=== PATIENT | male | born 1960 | race Caucasian/White ===

== ENCOUNTER → 2016-09-26 | Outpatient (CLI) | payer OTHER ==
--- NOTE | 2016-09-26 10:44 | REP ---
MRI CERVICAL SPINE WITHOUT CONTRAST: 08/29/2016 CLINICAL HISTORY: Cervical myelopathy. Bilateral leg cramps and pain. No known injury. Technique: Sagittal T1, T2 and STIR images with axial T1 and T2 sequences. FINDINGS: No comparison study. Normal lordosis and sagittal projections are maintained. The vertebral body heights and marrow signal are normal throughout. The cervical cord shows no intrinsic signal abnormality, syrinx, atrophy or mass. The craniocervical junction shows ample subarachnoid space. There is no definite cerebellar tonsillar ectopia. There is disc space narrowing at see 05/06 and C6-7 with loss of disc water signal at all levels in the cervical spine. C2-3, there is no significant disc bulge herniation and no spinal or foraminal stenosis. C3-4, there is broad-based disc bulge abutting the nerve roots in the central canal but not the cord. Cross-sectional area of that canal was adequate. The foramina show encroachment due to combined factors. At C4-5, minimal disc bulge into the foramina but no central canal stenosis. The foramina show encroachment due to combined factors bilaterally. At C5-6, there is disc protrusion abutting the ventral cord surface and flattening yet this causes mild cord compression and some minor degree of spinal stenosis. The AP canal diameter id 7.8 mm. Foramina suggest some encroachment bilaterally due to uncinate and facet spurs. At C6-7 and C7-T1, there is no significant central canal stenosis or foraminal encroachment. IMPRESSION: 1. Multilevel degenerative disc disease greatest at C5-6 with central disc protrusion at this level and disc bulge which abuts the nerve roots and flattens the ventral cord with moderate central canal stenosis and mild cord compression. Foramina encroached bilaterally due to combined factors. 2. No significant central canal stenosis but some foraminal encroachment at both C3-4 and C4-5. The other levels are grossly intact. Signed by Zion Blank MD 09/26/2016 10:57 A
== END ==
LOC: M RAD 09:09
PROVIDERS: ATTEND Neurological Surgery
DX: M48.02 Spinal stenosis, cervical region (principal); M50.022 Cervical disc disorder at C5-C6 level with myelopathy

== ENCOUNTER → 2016-11-13 | Outpatient (CLI) | payer OTHER ==
[2016-11-13 11:21] LABS: MEAN CORPUSCULAR HEMOGLOBIN 32.9 pg (27.0-33.0); MEAN CORPUSCULAR HGB CONC 33.6 g/dl (32.0-36.5); RED CELL DISTRIBUTION WIDTH 12.9 % (11.5-14.5); WHITE BLOOD COUNT 5.5 K/mm3 (4.0-10.0)
[2016-11-13 12:13] LABS: ALBUMIN/GLOBULIN RATIO 1.03 (1.00-1.93); ALKALINE PHOSPHATASE 118 U/L (45-117); ALT/SGPT 154 U/L (12-78); ANION GAP 6 MEQ/L (8-16); AST/SGOT 104 U/L (15-37); BILIRUBIN,TOTAL 0.6 MG/DL (0.2-1.0); BLOOD UREA NITROGEN 10 MG/DL (7-18); CALCIUM LEVEL 9.3 MG/DL (8.5-10.1); CARBON DIOXIDE LEVEL 33 MEQ/L (21-32); CHLORIDE LEVEL 101 MEQ/L (98-107); CHOLESTEROL LEVEL 134 MG/DL (<200); CREATININE FOR GFR 0.92 MG/DL (0.70-1.30); GLOMERULAR FILTRATION RATE > 60.0 (>56); GLUCOSE, FASTING 189 MG/DL (70-105); MAGNESIUM LEVEL 2.2 MG/DL (1.8-2.4); POTASSIUM SERUM 4.3 MEQ/L (3.5-5.1); SODIUM LEVEL 140 MEQ/L (136-145); TOTAL PROTEIN 7.9 GM/DL (6.4-8.2); TRIGLYCERIDES LEVEL 199 MG/DL (<150)
== END ==
LOC: M LAB 10:19
PROVIDERS: ATTEND Family Medicine
DX: E11.9 Type 2 diabetes mellitus without complications (principal); E03.9 Hypothyroidism, unspecified; R53.83 Other fatigue; N40.0 Benign prostatic hyperplasia without lower urinary tract symptoms

== ENCOUNTER → 2017-02-23 | Outpatient (CLI) | payer OTHER ==
[~2017-02-23] MED LIST: AMOX500T PO; ASPI1TAB PO; ATOR1TAB21 PO; DERM0.014 AU; FARX1TAB3 PO; FURO40TA2 PO; GABA-279 PO; MELO7.5T7 PO; METF10004 PO; MOME50SP; RANI150T PO; ROPI1TAB PO; SILD50TA PO; SING10TA32 PO; TELM1TAB2 PO; TIZA4CAP3 PO; ZYLO300T4 PO
[2017-02-23 10:23] LABS: MEAN CORPUSCULAR HEMOGLOBIN 32.9 pg (27.0-33.0); MEAN CORPUSCULAR VOLUME 96.5 fl (80.0-96.0); RED CELL DISTRIBUTION WIDTH 13.1 % (11.5-14.5); WHITE BLOOD COUNT 4.7 K/mm3 (4.0-10.0)
[2017-02-23 10:46] LABS: ALBUMIN 3.9 GM/DL (3.2-5.2); ALBUMIN/GLOBULIN RATIO 1.05 (1.00-1.93); ALKALINE PHOSPHATASE 113 U/L (45-117); ALT/SGPT 207 U/L (12-78); ANION GAP 9 MEQ/L (8-16); AST/SGOT 175 U/L (15-37); BILIRUBIN,TOTAL 0.9 MG/DL (0.2-1.0); BLOOD UREA NITROGEN 15 MG/DL (7-18); CALCIUM LEVEL 9.1 MG/DL (8.5-10.1); CARBON DIOXIDE LEVEL 28 MEQ/L (21-32); CHLORIDE LEVEL 104 MEQ/L (98-107); CHOLESTEROL LEVEL 141 MG/DL (<200); GLOMERULAR FILTRATION RATE > 60.0 (>56); GLUCOSE, FASTING 172 MG/DL (70-105); POTASSIUM SERUM 3.9 MEQ/L (3.5-5.1); SODIUM LEVEL 141 MEQ/L (136-145); TOTAL PROTEIN 7.6 GM/DL (6.4-8.2); TRIGLYCERIDES LEVEL 180 MG/DL (<150)
== END ==
LOC: M LAB 09:44
PROVIDERS: ATTEND Family Medicine
DX: I10 Essential (primary) hypertension (principal)

== ENCOUNTER 2017-05-04 09:41 | Day surgery (SDC) | payer OTHER ==
[~2017-05-04] VITALS: Ht 165.1 cm; Wt 90.3 kg
[2017-05-04] MEDS ORDERED: NS 1,000 ML IV ONE (12:30)
[2017-05-04] MEDS ORDERED: PROPOFOL 200 MG/20 ML VIAL As Ordered ONE (14:15)
[2017-05-04] MEDS ORDERED: LIDOCAINE 2% INJ 100 MG/5 ML SDV (FOR ANES.) As Ordered ONE (14:15)
--- NOTE | 2017-05-04 14:29 | ROOR ---
Patient Name: Ignacio Live Procedure Date: 05/04/2017 2:06 PM Date of : 1960 Age: 57 Room: [facility] Gender: Male Note Status: Finalized Procedure: Colonoscopy Indications: Colon cancer screening in patient with 1st-degree relative having advanced adenoma of the colon before age 60(sister), Screening in patient at increased risk: Colorectal cancer in father before age 60, Providers: Sameer BUSH MD Referring MD: ZOE COELHO MD Requesting Provider: Medicines: Monitored Anesthesia Care Complications: No immediate complications. Procedure: Pre-Anesthesia Assessment: - The heart rate, respiratory rate, oxygen saturations, blood pressure, adequacy of pulmonary ventilation, and response to care were monitored throughout the procedure. The Colonoscope was introduced through the anus and advanced to the cecum, identified by appendiceal orifice and ileocecal valve. The colonoscopy was performed without difficulty. The patient tolerated the procedure well. The quality of the bowel preparation was adequate. Findings: The perianal and digital rectal examinations were normal. A 4 mm polyp was found in the sigmoid colon. The polyp was sessile. The polyp was removed with a cold snare. Resection and retrieval were complete. Mild diverticulosis and small internal hemorrhoids. The exam was otherwise without abnormality on direct and retroflexion views. (EXAM: Complete, PREP: Fair/Adequate) Impression: - (EXAM: Complete, PREP: Fair/Adequate) - One 4 mm polyp in the sigmoid colon, removed with a cold snare. Resected and retrieved. - Mild diverticulosis and small internal hemorrhoids. - The examination was otherwise normal on direct and retroflexion views. Recommendation: - Repeat colonoscopy in 3 years for surveillance.- (family history, only fair prep, polyp) Sameer Bush MD Sameer BUSH MD 05/04/2017 2:29:03 PM This report has been signed electronically. Number of Addenda: 0 Note Initiated On: 05/04/2017 2:06 PM Estimated Blood Loss: Estimated blood loss: none.
[2017-05-04 14:45] VITALS: BP 141/74
== END 2017-05-04 14:53 | disposition home or self-care (01) ==
LOC: M OPP 09:41 → EDSTATUS 11:50 → M OPP 14:53
PROVIDERS: ATTEND Internal Medicine Gastroenterology
DX: Z12.11 Encounter for screening for malignant neoplasm of colon (principal); K63.5 Polyp of colon; K57.30 Diverticulosis of large intestine without perforation or abscess without bleeding; E78.00 Pure hypercholesterolemia, unspecified; G47.30 Sleep apnea, unspecified; I11.0 Hypertensive heart disease with heart failure; I50.9 Heart failure, unspecified; E11.9 Type 2 diabetes mellitus without complications; Z88.0 Allergy status to penicillin; Z91.040 Latex allergy status; Z91.048 Other nonmedicinal substance allergy status; Z79.82 Long term (current) use of aspirin; Z79.899 Other long term (current) drug therapy; Z79.84 Long term (current) use of oral hypoglycemic drugs

== ENCOUNTER → 2017-06-18 | Outpatient (CLI) | payer OTHER ==
[~2017-06-18] MED LIST changes: +LIDOCAINE 1% MDV 20ML VIAL As Ordered ONE
[2017-06-18 09:12] LABS: BASO # 0.1 10^3/uL (0.0-0.2); BASO % 0.7 % (0.0-1.0); EOS # 0.1 10^3/uL (0.0-0.50); EOS % 1.9 % (0.0-3.0); IMMATURE GRANULOCYTE % 0.5 % (0-0); LYMPH # 2.5 10^3/uL (1.5-4.5); MEAN CORPUSCULAR HEMOGLOBIN 31.3 pg (27.0-33.0); MEAN CORPUSCULAR HGB CONC 33.4 g/dl (32.0-36.5); MEAN CORPUSCULAR VOLUME 93.7 fl (80.0-96.0); MONO # 0.5 10^3/uL (0.0-0.8); MONO % 7.3 % (0.0-5.0); NEUTROPHILS # 4.2 10^3/uL (1.8-7.7); NEUTROPHILS % 56.6 % (36.0-66.0); PLATELET COUNT, AUTOMATED 217 10^3/uL (150-450); WHITE BLOOD COUNT 7.4 10^3/uL (4.0-10.0)
[2017-06-18 09:37] LABS: INR 1.09
--- NOTE | 2017-06-18 20:32 | REP ---
ULTRASOUND GUIDED LIVER BIOPSY The procedure was performed under the direct supervision of Dr. Blank The risks and benefits of the procedure were explained to the patient and informed consent was obtained. The left lobe of the liver was localized using ultrasound guidance. The skin was prepped and draped in a sterile fashion. 1% Xylocaine was used as a local anesthetic. Using ultrasound guidance a 19/20 G coaxial needle biopsy was inserted into the liver. 5 core biopsies were obtained and sent to the lab. The patient tolerated the procedure well and there were no immediate complications. After the appropriate amount of monitored convalescence, the patient was discharged from the department. Reviewed by SORAIDA Kaiser 06/18/2017 12:53 PSigned by Zion Blank MD 06/18/2017 08:24 P
== END ==
LOC: M RADPRO 08:36
PROVIDERS: ATTEND Internal Medicine Gastroenterology
DX: R94.5 Abnormal results of liver function studies (principal); Z95.1 Presence of aortocoronary bypass graft; F12.20 Cannabis dependence, uncomplicated; Z87.891 Personal history of nicotine dependence; Z88.8 Allergy status to other drugs, medicaments and biological substances; Z91.048 Other nonmedicinal substance allergy status; Z91.040 Latex allergy status; Z79.82 Long term (current) use of aspirin; Z79.899 Other long term (current) drug therapy

== ENCOUNTER → 2017-09-02 | Outpatient (REF) | payer OTHER ==
[2017-09-02 21:05] LABS: APPEARANCE, URINE CLEAR (CLEAR); BACTERIA, URINE AUTO NEGATIVE (NEGATIVE); BILIRUBIN, URINE AUTO NEGATIVE (NEGATIVE); BLOOD, URINE BLOOD NEGATIVE (NEGATIVE); COLOR, URINE YELLOW (YELLOW); GLUCOSE, URINE (UA) AUTO 3+ mg/dL (NEGATIVE); KETONE, URINE AUTO TRACE mg/dL (NEGATIVE); LEUKOCYTE ESTERASE, URINE AUTO NEGATIVE (NEGATIVE); NITRITE, URINE AUTO NEGATIVE (NEGATIVE); PROTEIN, URINE AUTO NEGATIVE (NEGATIVE); RBC, URINE AUTO 0 /HPF (0-3); SPECIFIC GRAVITY URINE AUTO 1.036 (1.002-1.035); SQUAMOUS EPITHELIAL CELL UR AU 0 /HPF (0-6); WBC, URINE AUTO 1 /HPF (0-3)
== END ==
LOC: M LAB REF 09:28
DX: N39.0 Urinary tract infection, site not specified (principal)

== ENCOUNTER → 2017-09-21 | Outpatient (CLI) | payer OTHER ==
[2017-09-21 10:43] LABS: HEMATOCRIT 47.1 % (42.0-52.0); HEMOGLOBIN 15.6 g/dl (14.0-18.0); MEAN CORPUSCULAR HEMOGLOBIN 30.8 pg (27.0-33.0); MEAN CORPUSCULAR HGB CONC 33.1 g/dl (32.0-36.5); MEAN CORPUSCULAR VOLUME 93.1 fl (80.0-96.0); PLATELET COUNT, AUTOMATED 150 10^3/uL (150-450); RED BLOOD COUNT 5.06 10^6/uL (4.30-6.10); RED CELL DISTRIBUTION WIDTH 13.4 % (11.5-14.5)
[2017-09-21 11:16] LABS: ALBUMIN 3.9 GM/DL (3.2-5.2); ALKALINE PHOSPHATASE 149 U/L (45-117); ALT/SGPT 309 U/L (12-78); ANION GAP 7 MEQ/L (8-16); AST/SGOT 155 U/L (7-37); BILIRUBIN,DIRECT 0.2 MG/DL (0.0-0.2); BILIRUBIN,TOTAL 0.5 MG/DL (0.2-1.0); BLOOD UREA NITROGEN 15 MG/DL (7-18); CALCIUM LEVEL 9.3 MG/DL (8.5-10.1); CARBON DIOXIDE LEVEL 29 MEQ/L (21-32); CHLORIDE LEVEL 101 MEQ/L (98-107); CHOLESTEROL LEVEL 232 MG/DL (<200); CREATININE FOR GFR 1.02 MG/DL (0.70-1.30); GLOMERULAR FILTRATION RATE > 60.0 (>56); GLUCOSE, FASTING 231 MG/DL (70-100); HDL CHOLESTEROL 37 MG/DL (>40); LDL CHOLESTEROL 163.2 MG/DL (<100); NON-HDL-C 195 MG/DL; POTASSIUM SERUM 4.3 MEQ/L (3.5-5.1); SODIUM LEVEL 137 MEQ/L (136-145); TOTAL PROTEIN 7.8 GM/DL (6.4-8.2); TRIGLYCERIDES LEVEL 159 MG/DL (<150)
[2017-09-21 11:19] LABS: ESTIMATED AVERAGE GLUCOSE 226 MG/DL (60-110); HEMOGLOBIN A1c 9.5 %
== END ==
LOC: M LAB 10:04
DX: E66.9 Obesity, unspecified (principal); E11.9 Type 2 diabetes mellitus without complications; I10 Essential (primary) hypertension; E78.5 Hyperlipidemia, unspecified; I25.810 Atherosclerosis of coronary artery bypass graft(s) without angina pectoris
CPT/HCPCS: 80076

== ENCOUNTER → 2018-02-12 | Outpatient (CLI) | payer OTHER ==
[2018-02-12 10:27] LABS: HEMATOCRIT 45.4 % (42.0-52.0); HEMOGLOBIN 15.7 g/dl (13.5-17.5); MEAN CORPUSCULAR HGB CONC 34.6 g/dl (32.0-36.5); MEAN CORPUSCULAR VOLUME 92.5 fl (80.0-96.0); PLATELET COUNT, AUTOMATED 132 10^3/uL (150-450); RED BLOOD COUNT 4.91 10^6/uL (4.30-6.10); RED CELL DISTRIBUTION WIDTH 13.1 % (11.5-14.5); WHITE BLOOD COUNT 4.8 10^3/uL (4.0-10.0)
[2018-02-12 10:58] LABS: TOTAL 25(OH) VITAMIN D 18.8 NG/ML (30.0-100.0)
[2018-02-12 10:59] LABS: ALBUMIN 3.6 GM/DL (3.2-5.2); ALBUMIN/GLOBULIN RATIO 0.86 (1.00-1.93); ALKALINE PHOSPHATASE 131 U/L (45-117); ALT/SGPT 197 U/L (12-78); ANION GAP 10 MEQ/L (8-16); AST/SGOT 144 U/L (7-37); BILIRUBIN,TOTAL 0.6 MG/DL (0.2-1.0); BLOOD UREA NITROGEN 12 MG/DL (7-18); CALCIUM LEVEL 9.1 MG/DL (8.5-10.1); CARBON DIOXIDE LEVEL 26 MEQ/L (21-32); CHLORIDE LEVEL 105 MEQ/L (98-107); CHOLESTEROL LEVEL 184 MG/DL (<200); CHOLESTEROL RISK RATIO 6.133 (<5); CREATININE FOR GFR 0.93 MG/DL (0.70-1.30); GLOMERULAR FILTRATION RATE > 60.0 (>56); GLUCOSE, FASTING 197 MG/DL (70-100); HDL CHOLESTEROL 30 MG/DL (>40); LDL CHOLESTEROL 103.6 MG/DL (<100); NON-HDL-C 154 MG/DL; POTASSIUM SERUM 4.3 MEQ/L (3.5-5.1); SODIUM LEVEL 141 MEQ/L (136-145); TOTAL PROTEIN 7.8 GM/DL (6.4-8.2); TRIGLYCERIDES LEVEL 252 MG/DL (<150)
[2018-02-12 11:05] LABS: ESTIMATED AVERAGE GLUCOSE 229 MG/DL (60-110); HEMOGLOBIN A1c 9.6 %
== END ==
LOC: M LAB 09:43
DX: D64.9 Anemia, unspecified (principal); E03.9 Hypothyroidism, unspecified; R53.83 Other fatigue; E11.9 Type 2 diabetes mellitus without complications
CPT/HCPCS: 84443

== ENCOUNTER → 2018-02-16 | Outpatient (REF) | payer OTHER | LOC: M LAB REF 16:46 | DX: J02.9 Acute pharyngitis, unspecified (principal) ==

== ENCOUNTER → 2018-04-29 | Outpatient (CLI) | payer OTHER ==
[2018-04-29 11:02] LABS: ALBUMIN 3.6 GM/DL (3.2-5.2); ALBUMIN/GLOBULIN RATIO 0.88 (1.00-1.93); ALKALINE PHOSPHATASE 148 U/L (45-117); ALT/SGPT 163 U/L (12-78); ANION GAP 9 MEQ/L (8-16); AST/SGOT 112 U/L (7-37); BILIRUBIN,DIRECT 0.2 MG/DL (0.0-0.2); BILIRUBIN,TOTAL 0.7 MG/DL (0.2-1.0); BLOOD UREA NITROGEN 19 MG/DL (7-18); CALCIUM LEVEL 8.7 MG/DL (8.5-10.1); CARBON DIOXIDE LEVEL 25 MEQ/L (21-32); CHLORIDE LEVEL 106 MEQ/L (98-107); CREATININE FOR GFR 0.92 MG/DL (0.70-1.30); GLOMERULAR FILTRATION RATE > 60.0 (>56); GLUCOSE, FASTING 153 MG/DL (70-100); POTASSIUM SERUM 4.1 MEQ/L (3.5-5.1); SODIUM LEVEL 140 MEQ/L (136-145); TOTAL PROTEIN 7.7 GM/DL (6.4-8.2)
== END ==
LOC: M LAB 09:41
DX: E11.65 Type 2 diabetes mellitus with hyperglycemia (principal)
CPT/HCPCS: 80076

== ENCOUNTER → 2018-05-25 | Outpatient (CLI) | payer OTHER ==
[2018-05-25 09:56] LABS: HEMATOCRIT 48.4 % (42.0-52.0); HEMOGLOBIN 16.3 g/dl (13.5-17.5); MEAN CORPUSCULAR HGB CONC 33.7 g/dl (32.0-36.5); MEAN CORPUSCULAR VOLUME 94.9 fl (80.0-96.0); PLATELET COUNT, AUTOMATED 146 10^3/uL (150-450); RED CELL DISTRIBUTION WIDTH 13.2 % (11.5-14.5); WHITE BLOOD COUNT 6.4 10^3/uL (4.0-10.0)
[2018-05-25 10:30] LABS: ESTIMATED AVERAGE GLUCOSE 174 MG/DL (60-110); HEMOGLOBIN A1c 7.7 %
[2018-05-25 10:33] LABS: ALBUMIN 3.7 GM/DL (3.2-5.2); ALBUMIN/GLOBULIN RATIO 0.97 (1.00-1.93); ALKALINE PHOSPHATASE 135 U/L (45-117); ALT/SGPT 158 U/L (12-78); ANION GAP 7 MEQ/L (8-16); AST/SGOT 87 U/L (7-37); BILIRUBIN,TOTAL 0.5 MG/DL (0.2-1.0); BLOOD UREA NITROGEN 11 MG/DL (7-18); CALCIUM LEVEL 9.1 MG/DL (8.5-10.1); CARBON DIOXIDE LEVEL 28 MEQ/L (21-32); CHLORIDE LEVEL 106 MEQ/L (98-107); CHOLESTEROL LEVEL 124 MG/DL (<200); CHOLESTEROL RISK RATIO 1.746 (<5); CREATININE FOR GFR 1.26 MG/DL (0.70-1.30); GLOMERULAR FILTRATION RATE > 60.0 (>56); GLUCOSE, FASTING 149 MG/DL (70-100); HDL CHOLESTEROL 71 MG/DL (>40); LDL CHOLESTEROL 36 MG/DL (<100); NON-HDL-C 53 MG/DL; POTASSIUM SERUM 3.8 MEQ/L (3.5-5.1); PROSTATIC SPECIFIC AG MONITOR 0.4 NG/ML (< 4.0); SODIUM LEVEL 141 MEQ/L (136-145); TOTAL 25(OH) VITAMIN D 63.2 NG/ML (30.0-100.0); TOTAL PROTEIN 7.5 GM/DL (6.4-8.2); TRIGLYCERIDES LEVEL 83 MG/DL (<150)
[2018-05-25 10:34] LABS: TESTOSTERONE 562 NG/DL (241-827)
== END ==
LOC: M LAB 09:26
DX: R53.83 Other fatigue (principal)
CPT/HCPCS: 84403

== ENCOUNTER → 2018-06-09 | Outpatient (CLI) | payer OTHER ==
[2018-06-11 10:02] LABS: ALPHA FETOPROTEIN TUMOR QUANT 2.4 NG/ML (<8.1)
== END ==
LOC: M LAB 08:31
DX: K75.81 Nonalcoholic steatohepatitis (NASH) (principal)
CPT/HCPCS: 76705

== ENCOUNTER → 2018-07-22 | Outpatient (CLI) | payer OTHER ==
[~2018-07-22] MED LIST changes: +GABA-1171 PO; -GABA-279 PO; -LIDOCAINE 1% MDV 20ML VIAL As Ordered ONE; -TELM1TAB2 PO; +TELM1TAB37 PO; +TIZA4CAP PO; -TIZA4CAP3 PO; -ZYLO300T4 PO; +ZYLO300T6 PO
[2018-07-22 10:11] LABS: ALBUMIN 3.8 GM/DL (3.2-5.2); ALT/SGPT 220 U/L (12-78); BILIRUBIN,TOTAL 0.7 MG/DL (0.2-1.0); BLOOD UREA NITROGEN 14 MG/DL (7-18); CALCIUM LEVEL 9.3 MG/DL (8.5-10.1); CARBON DIOXIDE LEVEL 26 MEQ/L (21-32); CHLORIDE LEVEL 105 MEQ/L (98-107); CREATININE FOR GFR 1.04 MG/DL (0.70-1.30); GLOMERULAR FILTRATION RATE > 60.0 (>56); GLUCOSE, FASTING 145 MG/DL (70-100); SODIUM LEVEL 139 MEQ/L (136-145); TOTAL PROTEIN 7.6 GM/DL (6.4-8.2)
[2018-07-22 10:56] LABS: HEMOGLOBIN A1c 7.9 %
== END ==
LOC: M LAB 08:56
PROVIDERS: ATTEND Family Medicine
DX: I10 Essential (primary) hypertension (principal); E03.9 Hypothyroidism, unspecified

== ENCOUNTER → 2018-10-20 | Outpatient (CLI) | payer OTHER ==
[~2018-10-20] MED LIST changes: -ASPI1TAB PO; +ASPI81TA26 PO
[2018-10-20 10:58] LABS: HEMATOCRIT 49.6 % (42.0-52.0); HEMOGLOBIN 16.9 g/dl (13.5-17.5); MEAN CORPUSCULAR HEMOGLOBIN 31.5 pg (27.0-33.0); MEAN CORPUSCULAR HGB CONC 34.1 g/dl (32.0-36.5); MEAN CORPUSCULAR VOLUME 92.4 fl (80.0-96.0); PLATELET COUNT, AUTOMATED 134 10^3/uL (150-450); RED BLOOD COUNT 5.37 10^6/uL (4.30-6.10); WHITE BLOOD COUNT 5.3 10^3/uL (4.0-10.0)
[2018-10-20 11:15] LABS: HEMOGLOBIN A1c 7.7 %
[2018-10-20 11:40] LABS: ALBUMIN 3.7 GM/DL (3.2-5.2); ALT/SGPT 154 U/L (12-78); BLOOD UREA NITROGEN 14 MG/DL (7-18); CALCIUM LEVEL 8.9 MG/DL (8.5-10.1); CARBON DIOXIDE LEVEL 24 MEQ/L (21-32); CHLORIDE LEVEL 103 MEQ/L (98-107); CHOLESTEROL LEVEL 93 MG/DL (<200); CREATININE FOR GFR 0.87 MG/DL (0.70-1.30); GLOMERULAR FILTRATION RATE > 60.0 (>56); GLUCOSE, FASTING 125 MG/DL (70-100); HDL CHOLESTEROL 31 MG/DL (>40); LDL CHOLESTEROL 36 MG/DL (<100); NON-HDL-C 62 MG/DL; PROSTATIC SPECIFIC AG MONITOR 0.35 NG/ML (< 4.00); SODIUM LEVEL 136 MEQ/L (136-145); TOTAL PROTEIN 7.3 GM/DL (6.4-8.2); TRIGLYCERIDES LEVEL 130 MG/DL (<150)
[2018-10-20 12:44] LABS: TESTOSTERONE 464 NG/DL (241-827)
== END ==
LOC: M LAB 09:25
PROVIDERS: ATTEND Family Medicine
DX: I10 Essential (primary) hypertension (principal); R53.83 Other fatigue

== ENCOUNTER → 2018-11-09 | Outpatient (REF) | payer OTHER ==
[2018-11-09 13:51] LABS: CREATININE, URINE 62.2 MG/DL; MALB URINE SIEMENS 5.4 MG/L; MAU/CREAT RATIO 8.6 MCG/MG (0.0-30.0)
== END ==
LOC: M LAB REF 12:37
PROVIDERS: ATTEND Internal Medicine Endocrinology, Diabetes & Metabolism
DX: E11.65 Type 2 diabetes mellitus with hyperglycemia (principal)

== ENCOUNTER → 2018-12-03 | Outpatient (CLI) | payer OTHER | LOC: M LAB 17:09 | PROVIDERS: ATTEND Physician Assistant Medical | DX: K74.69 Other cirrhosis of liver (principal) ==

== ENCOUNTER → 2018-12-03 | Outpatient (CLI) | payer OTHER ==
--- NOTE | 2018-12-03 09:03 | REP ---
Clinical: Cirrhosis. Comparison: 06/01/2018. Technique: Real time rhodes scale ultrasound examination using curved array transducer. Findings: Liver is increased echogenicity without focal hepatic lesion. Incidental focal fatty sparing at the inferior right lobe noted. Visualized portions of the pancreas are unremarkable but limited due to interposed bowel gas. The patient is status post cholecystectomy. No biliary ductal dilatation is appreciated and the common bile duct measures 4.7 mm diameter. The right kidney is normal in reniform shape without hydronephrosis and measures 11.5 x 5.9 x 5.7 cm. No ascites in the visualized right upper quadrant. Impression: 1. Hepatic steatosis with areas of focal fatty sparing. 2. Prior cholecystectomy. Electronically Signed by Everette Escobar MD 12/03/2018 08:55 A
== END ==
LOC: M RAD 06:59
PROVIDERS: ATTEND Physician Assistant Medical
DX: K74.69 Other cirrhosis of liver (principal); K76.0 Fatty (change of) liver, not elsewhere classified; Z90.49 Acquired absence of other specified parts of digestive tract

== ENCOUNTER 2019-03-09 11:46 | Emergency (ER) | payer OTHER ==
[~2019-03-09] VITALS: Ht 165.1 cm; Wt 87.7 kg
[2019-03-09 15:01] LABS: BASO % 0.6 % (0.0-1.0); EOS # 0.1 10^3/uL (0.0-0.50); EOS % 1.7 % (0.0-3.0); HEMATOCRIT 48.7 % (42.0-52.0); HEMOGLOBIN 16.5 g/dl (13.5-17.5); LYMPH # 2.2 10^3/uL (1.5-4.5); LYMPH % 35.4 % (24.0-44.0); MEAN CORPUSCULAR HEMOGLOBIN 31.7 pg (27.0-33.0); MEAN CORPUSCULAR HGB CONC 33.9 g/dl (32.0-36.5); MEAN CORPUSCULAR VOLUME 93.7 fl (80.0-96.0); MONO # 0.6 10^3/uL (0.0-0.8); MONO % 8.8 % (0.0-5.0); NEUTROPHILS # 3.4 10^3/uL (1.8-7.7); NEUTROPHILS % 53.3 % (36.0-66.0); PLATELET COUNT, AUTOMATED 142 10^3/uL (150-450); WHITE BLOOD COUNT 6.3 10^3/uL (4.0-10.0)
--- NOTE | 2019-03-09 16:05 | REP ---
CT of the abdomen and pelvis without IV or bowel contrast for hematuria and possible renal calculus: Comparison is 03/28/2013. There are no renal, ureteral or bladder calculi. There is no hydronephrosis or perinephric stranding. No bladder masses are identified. The prostate is enlarged. The visualized lung espinoza are unremarkable. The unenhanced hepatic parenchyma, pancreas, spleen, adrenals and abdominal aorta are unremarkable. There are surgical clips in the gallbladder fossa. There is no retroperitoneal adenopathy or mass. There is no bowel distension or obstruction. Mesentery is unremarkable. Pelvis: There is no adenopathy or ascites. There is diverticulosis without diverticulitis. Impression: There is no hydronephrosis. There are no renal, ureteral or bladder calculi. No bladder masses are identified. The prostate appears enlarged. Diverticulosis without diverticulitis. Cholecystectomy. Otherwise, negative CT of the abdomen and pelvis. Electronically Signed by Pepito Foreman MD 03/09/2019 03:57 P
[2019-03-09 16:24] VITALS: BP 121/76
== END 2019-03-09 16:35 | disposition home or self-care (01) ==
LOC: M ED 11:46
DX: R31.9 Hematuria, unspecified (principal); I50.9 Heart failure, unspecified; E11.9 Type 2 diabetes mellitus without complications; I10 Essential (primary) hypertension; K57.30 Diverticulosis of large intestine without perforation or abscess without bleeding; N40.0 Benign prostatic hyperplasia without lower urinary tract symptoms; Z79.82 Long term (current) use of aspirin; Z79.899 Other long term (current) drug therapy; Z91.040 Latex allergy status; Z91.89 Other specified personal risk factors, not elsewhere classified

== ENCOUNTER → 2019-03-16 | Outpatient (CLI) | payer OTHER ==
[2019-03-16 13:36] LABS: INR 1.09; PROTHROMBIN TIME 13.8 SECONDS (11.8-14.0)
== END ==
LOC: M LAB 11:37
PROVIDERS: ATTEND Family Medicine
DX: R31.9 Hematuria, unspecified (principal)

== ENCOUNTER → 2019-03-25 | Outpatient (REF) | payer OTHER ==
[2019-03-25 13:14] LABS: APPEARANCE, URINE CLEAR (CLEAR); BACTERIA, URINE AUTO NEGATIVE (NEGATIVE); BILIRUBIN, URINE AUTO NEGATIVE (NEGATIVE); BLOOD, URINE BLOOD NEGATIVE (NEGATIVE); COLOR, URINE YELLOW (YELLOW); GLUCOSE, URINE (UA) AUTO 3+ mg/dL (NEGATIVE); KETONE, URINE AUTO NEGATIVE (NEGATIVE); LEUKOCYTE ESTERASE, URINE AUTO NEGATIVE (NEGATIVE); NITRITE, URINE AUTO NEGATIVE (NEGATIVE); PROTEIN, URINE AUTO NEGATIVE (NEGATIVE); RBC, URINE AUTO 0 /HPF (0-3); SPECIFIC GRAVITY URINE AUTO 1.027 (1.002-1.035); SQUAMOUS EPITHELIAL CELL UR AU 0 /HPF (0-6); UROBILINOGEN, URINE AUTO 0.2 mg/dL (0.0-2.0); WBC, URINE AUTO 1 /HPF (0-3)
== END ==
LOC: M SMT 13:01
PROVIDERS: ATTEND Urology
DX: R31.0 Gross hematuria (principal)

== ENCOUNTER → 2019-06-06 | Outpatient (CLI) | payer OTHER ==
[2019-06-06 08:25] LABS: BLOOD UREA NITROGEN 15 MG/DL (7-18); CALCIUM LEVEL 9.1 MG/DL (8.5-10.1); CARBON DIOXIDE LEVEL 27 MEQ/L (21-32); CHLORIDE LEVEL 108 MEQ/L (98-107); CREATININE FOR GFR 1.03 MG/DL (0.70-1.30); GLOMERULAR FILTRATION RATE > 60.0 (>56); GLUCOSE, FASTING 161 MG/DL (70-100); POTASSIUM SERUM 4.1 MEQ/L (3.5-5.1); SODIUM LEVEL 141 MEQ/L (136-145)
== END ==
LOC: M LAB 07:12
PROVIDERS: ATTEND Internal Medicine Endocrinology, Diabetes & Metabolism
DX: E11.65 Type 2 diabetes mellitus with hyperglycemia (principal)

== ENCOUNTER → 2019-06-06 | Outpatient (CLI) | payer OTHER ==
[2019-06-06 08:32] LABS: ALBUMIN 3.7 GM/DL (3.2-5.2); ALT/SGPT 130 U/L (12-78); BILIRUBIN,TOTAL 0.4 MG/DL (0.2-1.0); BLOOD UREA NITROGEN 15 MG/DL (7-18); CALCIUM LEVEL 9.4 MG/DL (8.5-10.1); CARBON DIOXIDE LEVEL 27 MEQ/L (21-32); CHLORIDE LEVEL 109 MEQ/L (98-107); CREATININE FOR GFR 0.98 MG/DL (0.70-1.30); GLOMERULAR FILTRATION RATE > 60.0 (>56); GLUCOSE, FASTING 164 MG/DL (70-100); POTASSIUM SERUM 4.1 MEQ/L (3.5-5.1); SODIUM LEVEL 142 MEQ/L (136-145); TOTAL PROTEIN 7.5 GM/DL (6.4-8.2)
--- NOTE | 2019-06-06 08:37 | REP ---
Clinical: Cirrhosis. Technique: Real time rhodes scale ultrasound examination using curved array transducer. Findings: Liver demonstrates coarsened echotexture with increased echogenicity suggesting fatty infiltration and/or hepatocellular disease. No focal hepatic lesion identified. Visualized portions of the pancreas are normal but limited due to interposed bowel gas. The patient is status post cholecystectomy. No biliary ductal dilatation is appreciated and the common bile duct measures 3.6 mm diameter. The right kidney is normal in reniform shape without hydronephrosis and measures 12.1 x 5.8 x 6.3 cm. No ascites. Impression: 1. Hepatocellular disease/hepatosteatosis. Electronically Signed by Everette Escobar MD 06/06/2019 08:27 A
[2019-06-06 08:42] LABS: HEMATOCRIT 50.1 % (42.0-52.0); HEMOGLOBIN 16.7 g/dl (13.5-17.5); MEAN CORPUSCULAR HEMOGLOBIN 31.1 pg (27.0-33.0); MEAN CORPUSCULAR HGB CONC 33.3 g/dl (32.0-36.5); MEAN CORPUSCULAR VOLUME 93.3 fl (80.0-96.0); PLATELET COUNT, AUTOMATED 133 10^3/uL (150-450); RED BLOOD COUNT 5.37 10^6/uL (4.30-6.10); WHITE BLOOD COUNT 5.4 10^3/uL (4.0-10.0)
== END ==
LOC: M RAD 07:07
PROVIDERS: ATTEND Physician Assistant Medical
DX: K76.89 Other specified diseases of liver (principal); K76.0 Fatty (change of) liver, not elsewhere classified; K74.69 Other cirrhosis of liver

== ENCOUNTER → 2019-07-05 | Outpatient (CLI) | payer OTHER ==
[2019-07-05 10:13] LABS: HEMATOCRIT 48.4 % (42.0-52.0); HEMOGLOBIN 16.1 g/dl (13.5-17.5); MEAN CORPUSCULAR HEMOGLOBIN 30.3 pg (27.0-33.0); MEAN CORPUSCULAR HGB CONC 33.3 g/dl (32.0-36.5); MEAN CORPUSCULAR VOLUME 91.1 fl (80.0-96.0); PLATELET COUNT, AUTOMATED 137 10^3/uL (150-450); RED BLOOD COUNT 5.31 10^6/uL (4.30-6.10); WHITE BLOOD COUNT 4.8 10^3/uL (4.0-10.0)
[2019-07-05 10:40] LABS: HEMOGLOBIN A1c 7.2 %
[2019-07-05 10:49] LABS: ALBUMIN 3.6 GM/DL (3.2-5.2); ALT/SGPT 126 U/L (12-78); BILIRUBIN,TOTAL 0.8 MG/DL (0.2-1.0); BLOOD UREA NITROGEN 13 MG/DL (7-18); CALCIUM LEVEL 8.9 MG/DL (8.5-10.1); CARBON DIOXIDE LEVEL 28 MEQ/L (21-32); CHLORIDE LEVEL 104 MEQ/L (98-107); CHOLESTEROL LEVEL 97 MG/DL (<200); CHOLESTEROL RISK RATIO 2.852 (<5); CREATININE FOR GFR 1.03 MG/DL (0.70-1.30); GLOMERULAR FILTRATION RATE > 60.0 (>56); GLUCOSE, FASTING 129 MG/DL (70-100); HDL CHOLESTEROL 34 MG/DL (>40); LDL CHOLESTEROL 21 MG/DL (<100); NON-HDL-C 63 MG/DL; POTASSIUM SERUM 4.1 MEQ/L (3.5-5.1); SODIUM LEVEL 141 MEQ/L (136-145); TESTOSTERONE 664 NG/DL (241-827); TOTAL 25(OH) VITAMIN D 21.7 NG/ML (30.0-100.0); TOTAL PROTEIN 7.3 GM/DL (6.4-8.2); TRIGLYCERIDES LEVEL 210 MG/DL (<150)
== END ==
LOC: M LAB 09:25
PROVIDERS: ATTEND Family Medicine
DX: I10 Essential (primary) hypertension (principal); E11.9 Type 2 diabetes mellitus without complications; R53.83 Other fatigue; E03.9 Hypothyroidism, unspecified

== ENCOUNTER → 2019-08-26 | Outpatient (CLI) | payer OTHER ==
[~2019-08-26] MED LIST changes: -ROPI1TAB PO; +ROPI1TAB3 PO
[2019-08-26 12:45] LABS: HEMATOCRIT 49.3 % (42.0-52.0); HEMOGLOBIN 16.6 g/dl (13.5-17.5); MEAN CORPUSCULAR HEMOGLOBIN 30.7 pg (27.0-33.0); MEAN CORPUSCULAR HGB CONC 33.7 g/dl (32.0-36.5); MEAN CORPUSCULAR VOLUME 91.1 fl (80.0-96.0); PLATELET COUNT, AUTOMATED 152 10^3/uL (150-450); RED BLOOD COUNT 5.41 10^6/uL (4.30-6.10); WHITE BLOOD COUNT 6.4 10^3/uL (4.0-10.0)
[2019-08-26 13:13] LABS: ALT/SGPT 166 U/L (12-78); BILIRUBIN,TOTAL 0.7 MG/DL (0.2-1.0); BLOOD UREA NITROGEN 18 MG/DL (7-18); CARBON DIOXIDE LEVEL 29 MEQ/L (21-32); CHLORIDE LEVEL 106 MEQ/L (98-107); CHOLESTEROL LEVEL 130 MG/DL (<200); CHOLESTEROL RISK RATIO 3.823 (<5); CREATININE FOR GFR 0.94 MG/DL (0.70-1.30); GLOMERULAR FILTRATION RATE > 60.0 (>56); GLUCOSE, FASTING 96 MG/DL (70-100); HDL CHOLESTEROL 34 MG/DL (>40); LDL CHOLESTEROL 51 MG/DL (<100); NON-HDL-C 96 MG/DL; POTASSIUM SERUM 3.9 MEQ/L (3.5-5.1); SODIUM LEVEL 141 MEQ/L (136-145); TOTAL PROTEIN 7.8 GM/DL (6.4-8.2); TRIGLYCERIDES LEVEL 224 MG/DL (<150)
[2019-08-26 13:26] LABS: CREATININE, URINE 79.6 MG/DL; MALB URINE SIEMENS 8.9 MG/L; MAU/CREAT RATIO 11.1 MCG/MG (0.0-30.0)
== END ==
LOC: M LAB 11:29
PROVIDERS: ATTEND Internal Medicine Endocrinology, Diabetes & Metabolism
DX: E11.65 Type 2 diabetes mellitus with hyperglycemia (principal)

== ENCOUNTER → 2019-12-12 | Outpatient (CLI) | payer OTHER ==
[2019-12-12 09:47] LABS: HEMATOCRIT 49.9 % (42.0-52.0); HEMOGLOBIN 16.6 g/dl (13.5-17.5); MEAN CORPUSCULAR HEMOGLOBIN 30.3 pg (27.0-33.0); MEAN CORPUSCULAR HGB CONC 33.3 g/dl (32.0-36.5); MEAN CORPUSCULAR VOLUME 91.2 fl (80.0-96.0); PLATELET COUNT, AUTOMATED 132 10^3/uL (150-450); RED BLOOD COUNT 5.47 10^6/uL (4.30-6.10); WHITE BLOOD COUNT 5.1 10^3/uL (4.0-10.0)
--- NOTE | 2019-12-12 09:55 | REP ---
REASON FOR EXAM: History of cirrhosis. COMPARISON: Multiple, the latest 06/06/2019. The patient is status post cholecystectomy. There is no evidence of intrahepatic or extrahepatic ductal dilatation. The common bile duct measures 5 mm in its greatest dimension. Once again, the hepatic parenchymal echo pattern is heterogeneous and stable in appearance. There is no evidence of a mass. The right kidney and imaged portion of the pancreas are again seen to be within normal limits and unchanged. IMPRESSION: No significant change from the prior exam. Fatty infiltration of the liver is suspected. This should be correlated clinically. Electronically Signed by Mathew Lucas DO 12/12/2019 10:11 A
[2019-12-12 10:19] LABS: ALBUMIN 3.6 GM/DL (3.2-5.2); ALT/SGPT 121 U/L (12-78); BILIRUBIN,TOTAL 0.7 MG/DL (0.2-1.0); BLOOD UREA NITROGEN 12 MG/DL (7-18); CALCIUM LEVEL 8.8 MG/DL (8.5-10.1); CARBON DIOXIDE LEVEL 26 MEQ/L (21-32); CHLORIDE LEVEL 109 MEQ/L (98-107); CREATININE FOR GFR 0.89 MG/DL (0.70-1.30); GLOMERULAR FILTRATION RATE > 60.0 (>56); GLUCOSE, FASTING 122 MG/DL (70-100); POTASSIUM SERUM 4.1 MEQ/L (3.5-5.1); SODIUM LEVEL 144 MEQ/L (136-145); TOTAL PROTEIN 7.8 GM/DL (6.4-8.2)
== END ==
LOC: M RAD 08:03
PROVIDERS: ATTEND Physician Assistant Medical
DX: K74.69 Other cirrhosis of liver (principal); K75.81 Nonalcoholic steatohepatitis (NASH)

== ENCOUNTER → 2020-03-13 | Outpatient (CLI) | payer OTHER ==
[2020-03-13 11:59] LABS: C REACTIVE PROTEIN QUANTITATIV 0.32 MG/DL (0.00-0.30); RHEUMATOID FACTOR QUANT < 10.0 IU/ML (<15.0)
[2020-03-21 23:10] LABS: ANTINUCLEAR ANTIBODIES DIRECT Negative (Negative); HLA-B27 Negative (.)
== END ==
LOC: M LAB 10:17
PROVIDERS: ATTEND Physician Assistant Medical
DX: M18.12 Unilateral primary osteoarthritis of first carpometacarpal joint, left hand (principal)

== ENCOUNTER → 2020-04-24 | Outpatient (CLI) | payer OTHER | LOC: M LAB 08:59 | PROVIDERS: ATTEND Physician Assistant Surgical | DX: M18.11 Unilateral primary osteoarthritis of first carpometacarpal joint, right hand (principal) ==

== ENCOUNTER → 2020-04-24 | Outpatient (CLI) | payer OTHER ==
--- NOTE | 2020-04-26 12:37 | REP ---
LIVER ULTRASOUND CLINICAL: Cirrhosis. COMPARISON: 12/12/2019. TECHNIQUE: Real-time rhodes scale ultrasound examination using curved array transducer. FINDINGS: The liver demonstrates coarsened echotexture suggesting hepatocellular disease. No focal hepatic lesion identified. The pancreas is incompletely evaluated due to interposed bowel gas, but visualized portions appear normal. The patient is noted to be status post cholecystectomy. The common bile duct measures 3.8 mm in diameter. The right kidney is normal in reniform shape without hydronephrosis and measures 12.6 x 4.2 x 5.3 cm. No ascites. IMPRESSION: Coarsened hepatic echotexture consistent with the given history of cirrhosis/hepatocellular disease. No focal hepatic lesion identified. MTDD
== END ==
LOC: M RAD 09:23
PROVIDERS: ATTEND Physician Assistant Medical
DX: K75.81 Nonalcoholic steatohepatitis (NASH) (principal); K74.69 Other cirrhosis of liver

== ENCOUNTER → 2020-05-24 | Outpatient (CLI) | payer OTHER ==
[2020-05-24 11:42] LABS: HEMOGLOBIN 15.9 g/dl (13.5-17.5); MEAN CORPUSCULAR HEMOGLOBIN 30.6 pg (27.0-33.0); MEAN CORPUSCULAR HGB CONC 32.4 g/dl (32.0-36.5); MEAN CORPUSCULAR VOLUME 94.2 fl (80.0-96.0); PLATELET COUNT, AUTOMATED 131 10^3/uL (150-450); WHITE BLOOD COUNT 5.2 10^3/uL (4.0-10.0)
[2020-05-24 12:19] LABS: ALBUMIN 3.8 GM/DL (3.2-5.2); ALT/SGPT 133 U/L (12-78); BILIRUBIN,TOTAL 0.6 MG/DL (0.2-1.0); BLOOD UREA NITROGEN 17 MG/DL (7-18); CALCIUM LEVEL 9.3 MG/DL (8.5-10.1); CARBON DIOXIDE LEVEL 29 MEQ/L (21-32); CHLORIDE LEVEL 103 MEQ/L (98-107); CREATININE FOR GFR 0.93 MG/DL (0.70-1.30); GLOMERULAR FILTRATION RATE > 60.0 (>56); GLUCOSE, FASTING 117 MG/DL (70-100); SODIUM LEVEL 140 MEQ/L (136-145); TOTAL PROTEIN 7.8 GM/DL (6.4-8.2)
== END ==
LOC: M LAB 10:33
PROVIDERS: ATTEND Physician Assistant Medical
DX: K74.69 Other cirrhosis of liver (principal); K75.81 Nonalcoholic steatohepatitis (NASH)

== ENCOUNTER → 2020-08-21 | Outpatient (CLI) | payer OTHER ==
[2020-08-21 11:26] LABS: ALBUMIN 3.5 GM/DL (3.2-5.2); ALT/SGPT 110 U/L (12-78); BILIRUBIN,TOTAL 0.5 MG/DL (0.2-1.0); BLOOD UREA NITROGEN 10 MG/DL (7-18); CALCIUM LEVEL 9.3 MG/DL (8.5-10.1); CARBON DIOXIDE LEVEL 30 MEQ/L (21-32); CHLORIDE LEVEL 105 MEQ/L (98-107); CHOLESTEROL LEVEL 121 MG/DL (<200); CHOLESTEROL RISK RATIO 3.102 (<5); CREATININE FOR GFR 0.89 MG/DL (0.70-1.30); GLOMERULAR FILTRATION RATE > 60.0 (>56); GLUCOSE, FASTING 211 MG/DL (70-100); HDL CHOLESTEROL 39 MG/DL (>40); LDL CHOLESTEROL 47 MG/DL (<100); NON-HDL-C 82 MG/DL; SODIUM LEVEL 140 MEQ/L (136-145); TOTAL PROTEIN 7.5 GM/DL (6.4-8.2); TRIGLYCERIDES LEVEL 173 MG/DL (<150)
[2020-08-21 11:29] LABS: TOTAL 25(OH) VITAMIN D 26.2 NG/ML (30.0-100.0)
[2020-08-21 11:34] LABS: MALB URINE SIEMENS 19.6 MG/L
== END ==
LOC: M LAB 10:09
PROVIDERS: ATTEND Nurse Practitioner Family
DX: E11.65 Type 2 diabetes mellitus with hyperglycemia (principal); E55.9 Vitamin D deficiency, unspecified; E78.00 Pure hypercholesterolemia, unspecified

== ENCOUNTER → 2020-08-30 | Outpatient (CLI) | payer OTHER ==
[~2020-08-30] MED LIST changes: +FLON1SPR; +PRAL1INJ SC; +TRUL0.5I SC; +VITMTA PO
== END ==
LOC: M LABSMTC 09:58
PROVIDERS: ATTEND Anesthesiology
DX: Z01.812 Encounter for preprocedural laboratory examination (principal); Z20.822 Contact with and (suspected) exposure to COVID-19

== ENCOUNTER 2020-09-04 07:24 | Day surgery (SDC) | payer OTHER ==
[~2020-09-04] VITALS: Ht 165.1 cm; Wt 89.8 kg
[~2020-09-04 07:24] MED LIST changes: +NS 1,000 ML IV ONE
--- OUTSIDE RECORDS SUMMARY | 2020-09-04 07:28 | CCD ---
Author Author Sameer Alvarez MD [facility] Organization Sameer Alvarez MD [facility] Address [address] [place] [id number] Phone Care Team Providers Care Board Catcher Name Role Phone Nehemias KIMBLE, Moijuventino PP [phone] Shelley KIMBLE, [employer] Unavailable [phone] Marybeth COLE, José Unavailable [phone] Reason for Referral No Reason for Referral Recorded Problems Includes: Active, inactive, and resolved Problems All Visits Onset Date - Time Resolved Date - Time Provider Co ndition Status Cataract Senile Nuclear 06/30/2019 - 12:00AM [facility] Active Blepharitis Squamous 06/30/2019 - 12:00AM José noble DO Active Taking Medication For Diabetes Long-term Use of Oral H ypoglycemics 11/03/2016 - 12:00AM José Rueda DO Active Corneal Pannus 11/03/2016 - 12:00AM José Rueda DO Active Diabetes Mellitus Type 2 Without Complication 11/03/2016 - 12:00 AM José Rudea DO Active Borderline Glaucoma Open Angle with Borderline Finding s Both Eyes 11/03/2016 - 12:00AM José Rueda DO Active Dry Eye Syndrome 11/03/2016 - 12:00AM José del castillo DO Active Vitreous Disorders Degeneration 11/03/2016 - 12:00AM Narciso Rueda DO Active Plan of Treatment Pending Tests Order Diagnosis Results Due Ordering Provi odette Testing Ordered - Visual Field Visual Field 24-2 Open angl e with borderline findings, low risk, bilateral 09/06/20 José Rueda DO Testing Ordered - OCT OCT DISC Open angle with ravinder rderline findings, low risk, bilateral 09/06/20 José Rueda DO Future Appointments Date Time Location Provider 8 Month Follow-Up 10/17/2020 9:10AM Sameer ROGERS C José Rueda DO Assessments Includes: Assessments for all patient encounters Findings Encounter Date Open angle borderline glaucoma in both eyes TESTING - VISUAL FIELD & OCT with José Rueda DO 08/21/2020 Corneal pannus 8 Month Follow-Up with Joséhodan Rueda DO 02/17/2020 Dry eye syndrome 8 Month Follow-Up with Joséhodan Rueda DO 02/17/2020 Long-term use of oral hypoglycemics 8 Month Follow-Up with Narciso Rueda DO 02/17/2020 Nuclear senile cataract 8 Month Follow-Up with José dayin DO 02/17/2020 Open angle borderline glaucoma in both eyes 8 Month Fo llow-Up with José Marybeth DO 02/17/2020 Type 2 diabetes mellitus without complication 8 Month Follow-Up with Joséhodan Rueda DO 02/17/2020 Open angle borderline glaucoma in both eyes TESTING - VISUAL FIELD & OCT with José Rueda DO 02/06/2020 Corneal pannus 6 Month Follow-Up with José Rueda DO 06/30/2019 Dry eye syndrome 6 Month Follow-Up with Joséhodan Rueda DO 06/30/2019 Long-term use of oral hypoglycemics 6 Month Follow-Up with Narciso Rueda DO 06/30/2019 Nuclear senile cataract 6 Month Follow-Up with José dayin DO 06/30/2019 Open angle borderline glaucoma in both eyes 6 Month Fo llow-Up with José Rueda DO 06/30/2019 Squamous blepharitis right upper eyelid , right lower eyelid, left upper eyelid and left lower eyelid 6 Month Follow-Up with José Correastein DO 06/30/2019 Type 2 diabetes mellitus without complication 6 Month Follow-Up with José Rueda DO 06/30/2019 Vitreous degeneration 6 Month Follow-Up with José ram DO 06/30/2019 Assessment of long-term use of oral hypoglycemics 6 Mo nth Follow-Up with José Correastein DO 12/29/2018 Corneal pannus 6 Month Follow-Up with José Marybeth DO 12/29/2018 Open angle borderline glaucoma in both eyes 6 Month Fo llow-Up with José Rueda DO 12/29/2018 Type 2 diabetes mellitus without complication 6 Month Follow-Up with [facility] DO 12/29/2018 Open angle borderline glaucoma in both eyes TESTING - VISUAL FIELD & OCT with [facility] DO 10/28/2018 Assessment of long-term use of oral hypoglycemics 7 Mo [facility]th [facility]2018 Corneal pannus 7 Month Follow-Up with José Marybeth DO 06/30/2018 Open angle borderline glaucoma in both eyes 7 Month Fo llow-Up with [facility] DO 06/30/2018 Type 2 diabetes mellitus without complication 7 Month [facility] 06/30[facility]2018 Open angle borderline glaucoma in both eyes 5 Month Fo llow-Up with [facility] DO 11/25/2017 Open angle borderline glaucoma in both eyes TESTING VF 24-2 & OCT DISC with [facility] DO 10/19/2017 Assessment of long-term use of oral hypoglycemics 6 Mo nth Follow-Up with José Marybeth DO 06/17/2017 Corneal pannus 6 Month Follow-Up with [facility] DO 06/17/2017 Dry eye syndrome 6 Month Follow-Up with [facility] DO 06/17/2017 Long-term use of oral hypoglycemics 6 Month Follow-Up with [facility] DO 06/17/2017 Open angle borderline glaucoma in both eyes 6 Month Fo llow-Up with [facility] DO 06/17/2017 Type 2 diabetes mellitus without complication 6 Month Follow-Up with [facility] DO 06/17/2017 Open angle borderline glaucoma in both eyes IOP CHECK with [facility] DO 12/15/2016 Open angle borderline glaucoma in both eyes TESTING VF 24-2 & OCT DISC with [facility] DO 11/06/2016 Corneal pannus NEW PATIENT WITH REFERRAL with [facility] DO 11/03/2016 Dry eye syndrome NEW PATIENT WITH REFERRAL with [facility] DO 11/03/2016 Long-term use of oral hypoglycemics NEW PATIENT WITH R EFERRAL with [facility] DO 11/03/2016 Open angle borderline glaucoma in both eyes NEW PATIEN T WITH REFERRAL with [facility] DO 11/03/2016 Type 2 diabetes mellitus without complication NEW NANCI ENT WITH REFERRAL with [facility] DO 11/03/2016 Vitreous degeneration NEW PATIENT WITH REFERRAL with [facility] DO 11/03/2016 Instructions Instructions not supported for this document typeNo Instructions Recorded Medical Equipment - Implanted Devices Includes: Current and historical DevicesNo Medical Equipment Recorded Medications Includes: Current and historical Medications Current Medications (continue as prescribed) Trulicity 1.5 MG/0.5ML Subcutaneous Solution Pen-injector Provider: Diagnosis: once per week Praluent 75 MG/ML Subcutaneous Solution Auto-injector 2018 Provider: Diagnosis: once every 2 weeks Jardiance 25 MG Oral Tablet 06/30/2019 Provider: Diagnosis: Aspirin 81MG Oral Tablet, enteric coated 06/17/2017 Provider: Diagnosis: Micardis 80MG Oral Tablet 11/03/2016 Provider: Diagnosis: Past Medications on file Lumigan 0.01% Ophthalmic Solution 06/30/2018 - 06/30/2019 Pr ovider: José Rueda DO Diagnosis: Open angle with bord ashu findings, low risk, bilateral One drop in each eye at night time. Farxiga 5MG Oral Tablet 06/17/2017 - 11/25/2017 Provider: Diagnosis: MetFORMIN HCl 1000MG Oral Tablet 11/03/2016 - 06/30/2019 Pro vider: Diagnosis: Lasix 40MG Oral Tablet 11/03/2016 - 06/30/2019 Provider: Diagnosis: Medications Administered Includes: Administered Medications in patient's chartNo Administered Medications Recorded Vital Signs Includes: Vital Signs from 08/29/2019 through 08/29/2020No Vital Signs Recorded For Specified Dates Results Includes: Results from 08/29/2019 through 08/29/2020No Results Recorded For Specified Dates History of Present Illness History of Present Illness not supported for this document typeNo History of Present Illness Recorded Social History Description Last Updated Using marijuana twice a year 06/30/2019 Not using alcohol 06/30/2019 Alcohol 1 weekly 11/03/2016 No tobacco use 11/03/2016 Previous smoking history 11/03/2016 Smoking status : Former smoker 11/03/2016 Procedures and Surgical History Includes: Procedures from 08/29/2019 through 08/29/2020 Procedures Code Diagnosis Performing Provider Service Location Service Date Visual Field 18582 Open angle with borderline findi ngs, low risk, bilateral José Kasper MD [facility] 08/21/2020 Scodi, optic nerve with interpretation and report [id number] Open angle with borderline findings, low risk, bilateral José Weiss MD [facility] 08/21/2020 Intermediate Eye Exam Established Patient [id number] Open angle with borderline findings, low risk, bilateral, Type 2 diabetes mellitus without complications, snf (current) use of oral hypoglycemic drugs, Age-related nuclear cataract, bilateral José Kasper MD [facility] 02/17/2020 Visual Field [id number] Open angle with borderline findi ngs, low risk, bilateral José Kasper MD [facility] 02/06/2020 Scodi, optic nerve with interpretation and report [id number] Open angle with borderline findings, low risk, bilateral José Weiss MD [facility] 02/06/2020 Surgical History Last Updated Surgical / procedural history Quad. bip ass 2007, Nasal Polyp 2001, Gaulbladder out 200911/03/2016 Medical History Includes: Medical History in patient's chart Description Last Updated Currently wearing eyeglasses 06/30/2019 No recent change in medical history 06/30/2019 History of fundoscopic exam through dilated pupils was performed 201611/03/2016 History of diabetes mellitus Diabetes M ellitus Type 2 Dx: 2006 last A1c: 7.1 ~FBS: 200 2 days ago 11/03/2016 History of hyperlipidemia 11/03/2016 History of hypertension 11/03/2016 Reported medical history Diabeters Jonelle itus Type 2, Low testosterone, High cholesterol, High blood pressure 11/03/2016 Family History Includes: Family History in patient's chart Description Last Updated Maternal history of thyroid disorder 06/30/2019 Paternal history of macular degeneration 06/30/2019 Family history of stroke/cerebrovascular accident Gra ndmother 11/03/2016 Fraternal history of arthritis 11/03/2016 Fraternal history of family history of cancer 11/04/19 17 Fraternal history of hypertension 11/03/2016 Maternal history of arthritis 11/03/2016 Maternal history of diabetes mellitus 11/03/2016 Maternal history of family history of cancer 7 Maternal history of hypertension 11/03/2016 Maternal history of macular degeneration 11/03/2016 Paternal history of arthritis 11/03/2016 Paternal history of family history of cancer 7 Paternal history of heart disease 11/03/2016 Paternal history of hypertension 11/03/2016 Paternal history of thyroid disorder 11/03/2016 Sororal history of arthritis 11/03/2016 Sororal history of family history of cancer 11/03/2016 Sororal history of hypertension 11/03/2016 Review of Systems Review of Systems not supported for this document typeNo Review of Systems Recorded Mental Status Mental Status not supported for this document typeNo Mental Status Recorded Functional Status Functional Status not supported for this document typeNo Functional Status Recorded Physical Exam Physical Exam not supported for this document typeNo Physical Exam Recorded Immunizations Includes: Immunizations in patient's chartNo Immunizations Recorded Allergies Includes: Active, inactive, and resolved AllergiesNo Known Allergies Encounters Includes: Encounters from 08/29/2019 through 08/29/2020 Encounter Provider Location Date Check-In Time Check-Out Time D iagnosis TESTING - VISUAL FIELD & OCT José Churchill MD [facility] 08/21/2020 9:27AM 9:47AM Borderline Glaucoma Open Angle with Borderline Findings Both Eyes OCT DISC Sameer Alvarez MD [facility] 08/21/2020 9:27AM 9:46 AM 8 Month Follow-Up José Kasper MD [facility] 01/2020 8:12AM 9:10AM Cataract Senile Nuclear, Cor nae Pannus, Dry Eye Syndrome, Taking Medication For Diabetes Long-term Use of Oral Hypoglycemics, Borderline Glaucoma Open Angle with Borderline Findings Both Eyes, Diabetes Mellitus Type 2 Without Complication OCT DISC Sameer Alvarez MD [facility] 02/06/2020 9:23AM 10:4 1AM TESTING - VISUAL FIELD & OCT José Churchill MD [facility] 02/06/2020 9:23AM 9:41AM Borderline Glaucoma Open Angle with Borderline Findings Both Eyes Insurance Includes: Active Insurance Policies Plan Name Member ID Group # Subscriber Relationship Effective Da isaac 1 - [employer] /[employer] NEEDED [id number] Winter Del Rosarioe Self 01/11/2020 - Unknown Advance Directives Includes: Current Advance DirectivesNo Advance Directives Recorded Health Concerns Includes: Active Health ConcernsNo Active Health Concerns Recorded Goals Includes: Active GoalsNo Active Goals Recorded Interventions Includes: Interventions for active GoalsNo Interventions Recorded Evaluations & Outcomes Includes: Evaluations & Outcomes for active GoalsNo Outcomes Recorded
--- OUTSIDE RECORDS SUMMARY | 2020-09-04 07:28 | CCD | Continuity of Care Document ---
Author Author Ignacio VEE NP Organization Unknown Address [address] [place] [address] Phone [phone] Care Team Providers Care Vice President Investor Relations Name Role Phone Yovany Del Cid MD AUTM [phone] Camille Rosa MD AUTM [phone] Problems Active Problems Provider Date Essential hypertension Onset: 03/03/2018 Obesity Michelle Delgado MD Onset: 03/29/2018 Vitamin D deficiency Michelle Delgado MD Onset: 03/29/2018 Type II diabetes mellitus uncontrolled Michelle Delgado MD O nset: 03/29/2018 Social History Type Date Description Comments Sex Unknown Cigarette Use Former Cigarette Smoker 1 Pack D aily quit 12 years ago ETOH Use Rarely consumes alcohol Tobacco Use Start: Unknown End: Unknown Patient is a former smoker Smoking Status Reviewed: 07/18/20 Patient is a former smoker Allergies, Adverse Reactions, Alerts Description No Known Drug Allergies Medications Active Medications SIG Qnty Indications Ordering Provide r Date Accu-Chek Fastclix Lancets Misc use as directed 1 time daily to check blood sugars 102units E11.65 Susanna Vee NP 01/23/2020 Accu-Chek Guide W/Device Kit use as directed to check blood sugars e11.65 1units E11.65 Kasey Vee NP 01/20/2020 Accu-Chek Guide Strips use as directed 1 time daily to check blood sugars e11.65 100units E11.65 Kasey Vee NP 01/20/2020 Trulicity 1.5mg/0.5ML Solution Pen -Inject inject the contents of one pen under the skin one time a week 6units E11.65 Kasey Vee NP 11/23/2018 Praluent 75mg/ml Solution Pen-Inje ct once every 2 weeks Michelle Delgado MD 08/10/2018 Telmisartan 80mg Tablets 1 po qd Michelle Delgado MD 03/29/2018 Jardiance 25mg Tablets take one tablet by mouth every day maximum daily dose = one tablet 90tabs E11.65 Kasey Vee NP 03/29/2018 Sildenafil Citrate 100mg Tablets 1 tablet as needed. Unknown Aspir-[address] 1 by mouth every day Unknown Multivitamin Adult Tablets 1 by mouth every day Unknown History Medications Accu-Chek Multiclix Lancets Misc use one time daily 306units Kasey Vee NP 01/20/2020 - 01/20/2020 Accu-Chek Softclix Lancets Misc use as directed 1 time daily to check blood sugars 100units E11.65 Susanna Vee NP 01/20/2020 - 01/23/2020 Immunizations Description No Information Available Vital Signs Date Vital Result Comment 07/18/2020 9:29am BP Systolic 126 mmHg BP Diastolic 75 mmHg Heart Rate 76 /min Body Temperature 96.8 F Height 64.2 inches 5'4.20" Weight 206.38 lb BMI (Body Mass Index) 35.2 kg/m2 O2 % BldC Oximetry 98 % 01/20/2020 8:49am BP Systolic 114 mmHg BP Diastolic 74 mmHg Heart Rate 75 /min Height 64.2 inches 5'4.20" Weight 201.31 lb BMI (Body Mass Index) 34.3 kg/m2 O2 % BldC Oximetry 96 % Results Test Acquired Date Facility Test Result H/L Range Note Laboratory test finding 07/18/2020 In House Hemoglobin A1c 7.5 Glucose 157 Laboratory test finding 01/20/2020 In House Glucose 157 Hemoglobin A1c 7.1 Procedures Date Code Description Status 01/20/2020 [id number] Diabetic Foot Exam Completed Medical Devices Description No Information Available Encounters Type Date Location Provider Dx Diagnosis Office Visit 07/18/2020 9:45a DR. Michelle Vee NP E1 1.65 Type 2 diabetes mellitus with hyperglycemia E55.9 Vitamin D deficiency, unspec ified E78.00 Pure hypercholesterolemia, u nspecified K74.69 Other cirrhosis of liver Office Visit 01/20/2020 8:45a DR. Michelle Vee, GANG MOWER OPERATOR E1 1.65 Type 2 diabetes mellitus with hyperglycemia E55.9 Vitamin D deficiency, unspec ified E78.00 Pure hypercholesterolemia, u nspecified K74.69 Other cirrhosis of liver Z01.89 Encounter for other specifie d special examinations Assessments Date Code Description Provider 07/18/2020 E11.65 Type 2 diabetes mellitus with hy perglycemia Kasey Vee, GANG MOWER OPERATOR 07/18/2020 E55.9 Vitamin D deficiency, unspecifie d Kasey Vee, GANG MOWER OPERATOR 07/18/2020 E78.00 Pure hypercholesterolemia, unspe cified Kasey Vee, GANG MOWER OPERATOR 07/18/2020 K74.69 Other cirrhosis of liver Kasey Vee, KIM 01/20/2020 E11.65 Type 2 diabetes mellitus with hy perglycemia Kasey Vee, KIM 01/20/2020 E55.9 Vitamin D deficiency, unspecifie d Kasey Vee, GANG MOWER OPERATOR 01/20/2020 E78.00 Pure hypercholesterolemia, unspe cified Kasey Vee, GANG MOWER OPERATOR 01/20/2020 K74.69 Other cirrhosis of liver Kasey Vee, KIM 01/20/2020 Z01.89 Encounter for other specified sp ecial examinations Kasey Vee NP Plan of Treatment 07/18/2020 - Kasey Vee NP* E11.65 Type 2 diabetes mellitus with hyperglycemia* New Labs:* Urine Micro/Creat Ratio Random, Scheduled: 08/20/20 * Comments:* 07/18/20- in office A1c= 7.3%(7.1%, 7.3%, 7.2%, 6.8%,7.2 %, 7.7%, 9.6%, 6.9%) Random BS= 157 Meter download: fasting- 128-228Current medication: Jardiance 25 mg daily. Trulicity 1.5 mg weekly * Follow up:* Follow up in 6 months. LEO * E55.9 Vitamin D deficiency, unspecified* New Labs:* Vitamin D 25-Hydroxy, Scheduled: 08/20/20 * Comments:* Repeat level May 2018 = 63. followed by PCP Will recheck Vit D level * E78.00 Pure hypercholesterolemia, unspecified* New Labs:* Lipid Panel, Scheduled: 08/20/20 * Comprehensive Metabolic Profil, Scheduled: 08/20/20 * Comments:* cardiology is following LDL's. Labs done 08/26/2019- chol= 130, Trig= 224, HDL= 34, LDL= 51Current medications: Praluent. * K74.69 Other cirrhosis of liver* Comments:* His liver biopsy from 06/18/17 did show early cirrhosis. Labs done 08/26/2019- AST= 98, ALT= 166- unchanged from previous Had been seen by gastro- 06/16/19 Functional Status Description No Information Available Mental Status Description No Information Available Referrals Description No Information Available
--- OUTSIDE RECORDS SUMMARY | 2020-09-04 07:28 | CCD | Continuity of Care Document ---
Author Author Ignacio BUSH MD Organization Unknown Address [address] [place] [address] Phone [phone] Care Team Providers Care Auto Roller Name Role Phone Yovany Del Cid M.D. AUTM [phone] [facility] AUTM [phone] Camille Rosa M.D. AUTM [phone] Problems Active Problems Provider Date Polypoid sinus degeneration Erasmo Hayes MD Onset: Chronic otitis externa Erasmo Hayes MD Onset: 02/23/20 12 Dizziness and giddiness Erasmo Hayes MD Onset: 015 Gallbladder calculus with acute cholecystitis and no o bstruction Alejandro Sawyer MD Onset: 02/20/2015 Obstructive sleep apnea syndrome Juanita Alves, A.N.P. Onset: 06/10/2011 Disturbance of consciousness Juanita Alves A.NNahun Onse t: 02/19/2011 Body mass index 30+ - obesity Juanita Alves A.N.P. Ons et: 02/19/2011 Obesity Juanita Alves, A.N.P. Onset: 2010 Ex-smoker Juanita Alves A.N.P. Onset: 2010 Social History Type Date Description Comments Sex Unknown ETOH Use Occasionally consumes alcohol Tobacco Use Start: Unknown End: Unknown Patient is a former smoker Recreational Drug Use Denies Drug Use Tobacco Use Start: Unknown Quit 2003 Smoking Status Reviewed: 04/02/20 Quit 2004 Allergies, Adverse Reactions, Alerts Active Allergies Reaction Severity Comments Date Methylisothiazolinone 2014 Isothiazolinones 03/05/2015 Chloroisothiazolinone 2014 Adhesives 04/23/2017 Tape 02/19/2011 Inactive Allergies NKDA 12/25/2010 Medications Active Medications SIG Qnty Indications Ordering Provide r Date Suprep Bowel Prep Kit 17.5-3.13-1.6GM/177ML Solution take per doctor's bowel prep instructions. 354ml Z12.1 1 Sameer Bush MD 06/27/2020 Magnesium Citrate 1.745GM/30ML Sarina ution take one 10 ounce bottle prior to procedure for additional bowel prep per instructions. 296ml Z12.11 Sameer Bush MD 06/27/2020 Telmisartan 80mg Tablets janny y Unknown CPAP Apap/LCW Jimmy Norman MD Aspir-[address] 1 po qd Unknown Jardiance 25mg Tablets daily Unknown Praluent 75mg/ml Solution Pen-Inje ct 1 injection every 2 weeks Unknown 00 Trulicity 1.5mg/0.5ML Solution Pen -Inject Weekly Unknown Multivitamin Adults 50+ Adlt 50+ T ablets 1 by mouth every day Unknown Immunizations CPT Code Status Date Vaccine Lot # 21352 Given 04/07/2016 Influenza Virus Split 3 Yrs And Above For Intramuscular Use 05948 Given 03/15/2015 Influenza Virus Split 3 Yrs And Above For Intramuscular Use Q2036 Given 04/09/2012 Influenza Vaccine 3 Years Of Age Or Older (Flulaval) Q2036 Given 04/21/2011 Influenza Vaccine 3 Years Of Age Or Older (Flulaval) 36470 Given 04/17/2010 Influenza Virus Split 3 Yrs And Above For Intramuscular Use Q2036 Given Unknown Influenza Vaccine 3 Years Of Age Or Older (Flulaval) Vital Signs Date Vital Result Comment 06/27/2020 9:06am BP Systolic 110 mmHg BP Diastolic 72 mmHg Height 64 inches 5'4" Weight 204.00 lb BMI (Body Mass Index) 35.0 kg/m2 [place] Body Weight 130 lb Weight 92.534 kg BSA (Body Surface Area) 1.97 m2 04/02/2020 11:05am BP Systolic 124 mmHg BP Diastolic 80 mmHg Heart Rate 69 /min O2 % BldC Oximetry 95 % Height 64 inches 5'4" Weight 202.00 lb BMI (Body Mass Index) 34.7 kg/m2 [place] Body Weight 130 lb Weight 91.627 kg BSA (Body Surface Area) 1.96 m2 Results Test Acquired Date Facility Test Result H/L Range Note Comprehensive Metabolic Profil 05/24/2020 [facility] [address] [place], [place] [id number] [phone] Glucose, Fasting 117 mg/dL High 70-100 Blood Urea Nitrogen 17 mg/dL Normal 7-18 Creatinine For GFR 0.93 mg/dL Normal 0.70-1.30 Glomerular Filtration Rate > 60.0 Normal >56 1 Sodium Level 140 mEq/L Normal 136-145 Potassium Serum 4.0 mEq/L Normal 3.5-5.1 Chloride Level 103 mEq/L Normal 98-107 Carbon Dioxide Level 29 mEq/L Normal 21-32 Anion Gap 8 mEq/L Normal 8-16 Calcium Level 9.3 mg/dL Normal 8.5-10.1 Ast/Sgot 65 U/L High 7-37 Alt/SGPT 133 U/L High 12-78 Alkaline Phosphatase 121 U/L High 45-117 Bilirubin,Total 0.6 mg/dL Normal 0.2-1.0 Total Protein 7.8 GM/DL Normal 6.4-8.2 Albumin 3.8 GM/DL Normal 3.2-5.2 Albumin/Globulin Ratio 1.0 Normal 2 Complete Blood Count 05/24/2020 [facility] Main Lab [address] [place], [place] [id number] [phone] White Blood Count 5.2 10 Normal 4.0-10.0 Red Blood Count 5.20 10 Normal 4.30-6.10 Hemoglobin 15.9 g/dL Normal 13.5-17.5 Hematocrit 49.0 % Normal 42.0-52.0 Mean Corpuscular Volume 94.2 fl Normal 80.0-96.0 Mean Corpuscular Hemoglobin 30.6 pg Normal 27.0-33.0 Mean Corpuscular HGB Conc 32.4 g/dL Normal 32.0-36.5 Red Cell Distribution Width 13.5 % Normal 11.5-14.5 Platelet Count, Automated 131 10 Low 150-450 Nucleated Red Blood Cell % 0.0 % Normal 0-0 3 Laboratory test finding 05/24/2020 [facility] Main Lab [address] [id number] [phone] Alpha Fetoprotein Tumor Quant 2.2 NG/ML Normal <8 .1 4, 5 1 Units are mL/min/1.73 m2 Chronic Kidney Disease Staging per NKF: Stage I & II GFR >=60 Normal to Mildly Decreased Stage III GFR 30-59 Moderately Decreased Stage IV GFR 15-29 Severely Decreased Stage V GFR <15 Very Little GFR Left ESRD GFR <15 on COPY READER 2 05/24/20 (May 24) 12:32 PM PRIYANKA OSUNA Reviewed. Stable. Will discuss with patient at 06/05/20 office visit. 3 05/24/20 (May 24) 12:33 PM PRIYANKA OSUNA Reviewed. Stable. Will discuss with patient at 06/05/20 office visit. 4 THE AFP ASSAY IS PERFORMED O N THE [employer] BY CHEMILUMINESCENCE AND SHOULD NOT BE COMPARED INTERCHANGEABLY WITH OTHER METHODS. IT SHOULD NOT BE USED ALONE A SCREENING TEST OR DIAGNOSIS FOR THE PRESENCE OR ABSENCE OF MALIGNANT DISEASE. THESE RESULTS ARE NOT INTERPRETABLE IN FEMALES. PREDICTIONS OF DISEASE RECURRENCE SHOULD NOT BE BASED SOLELY ON VALUES OBTAINED FROM SERIAL PATIENT SERUM VALUES. 5 05/24/20 (May 24) 12:33 PM PRIYANKA OSUNA Normal. Will discuss with patient at 06/05/20 office visit. Procedures Description No Information Available Medical Devices Description No Information Available Encounters Type Date Location Provider Dx Diagnosis Office Visit 04/02/2020 11:00a [facility] America Norman MD G47.33 Obstructive sleep apnea (adult) (pediatr ic) J30.9 Allergic rhinitis, unspecifi ed Assessments Date Code Description Provider 06/27/2020 Z12.11 Encounter for screening for khadar gnant neoplasm of colon Priyanka A WENDY Osuna-C 06/27/2020 Z86.010 Personal history of colonic poly ps Priyanka A WENDY Osuna-C 06/27/2020 Z80.0 Family history of malignant neop lasm of digestive organs Priyanka Fox WENDY Osuna-C 06/27/2020 K75.81 Nonalcoholic steatohepatitis (Na sh) Priyanka A KO Osuna 06/27/2020 K74.69 Other cirrhosis of liver KO Melendez 04/02/2020 G47.33 Obstructive sleep apnea (adult) (pediatric) Jimmy Norman MD 04/02/2020 J30.9 Allergic rhinitis, unspecified L peggy Norman MD Plan of Treatment Future Appointment(s):* 09/04/2020 4:00 am - Sameer Bush MD at [facility] * 04/02/2021 11:00 am - Jimmy Norman MD at [facility] 06/27/2020 - KO Melendez* Z12.11 Encounter for screening for malignant neoplasm of colon * Z86.010 Personal history of colonic polyps * Z80.0 Family history of malignant neoplasm of digestive organs * K75.81 Nonalcoholic steatohepatitis (Sánchez) * K74.69 Other cirrhosis of liver * * New Medication:* Suprep Bowel Prep Kit 17.5-3.13-1.6 GM/177ML * Magnesium Citrate 1.745 GM/30ML * New Orders:* Colonoscopy, Ordered: 06/27/20 * Comments:* Will arrange for colonoscopy. Reviewed risks and benefits of the procedure, as well as other options, with the patient. Bowel prep procedure was discussed with patient, as well as risks and side effects associated with the bowel prep. Patient verbalized understanding of all of the above and is in agreement to proceed. Patient will seek medical attention for any acute changes. Will monitor. * Follow up:* As scheduled for colonoscopy and then 6 months for f/u of cirrhosis. Patient will contact us sooner if needed. Functional Status Description No Information Available Mental Status Description No Information Available Referrals Description No Information Available
--- OUTSIDE RECORDS SUMMARY | 2020-09-04 07:28 | CCD | Continuity of Care Document ---
Author Author Ignacio VEE NP Organization Unknown Address [address] [place] [address] Phone [phone] Care Team Providers Care Flight Engineer Name Role Phone Yovany Del Cid MD AUTM [phone] Camille Rosa MD AUTM [phone] Problems Active Problems Provider Date Essential hypertension [...] to check blood sugars 102units E11.65 Susanna eVe NP 01/23/2020 Accu-Chek Guide W/Device Kit use [...] Michelle Delgado MD 03/29/2018 Jardiance 25mg Tablets Take One Tablet By Mouth Every Day Maximum Daily Dose = One Tablet 90tabs E11.65 Michelle Delgado MD 03/29/2018 Sildenafil Citrate 100mg Tablets 1 tablet [...] 7.1 Procedures Date Code Description Status 01/20/2020 [id number] Diabetic Foot Exam Completed Medical Devices Description No Information Available Encounters Type Date Location Provider Dx Diagnosis Office Visit 01/20/2020 8:45a DR. Michelle Vee NP E1 1.65 Type 2 diabetes mellitus with hyperglycemia E55.9 Vitamin D deficiency, unspec ified E78.00 Pure hypercholesterolemia, u nspecified K74.69 Other cirrhosis of liver Z01.89 Encounter for other specifie d special examinations Assessments Date Code Description Provider 07/18/2020 E11.65 Type 2 diabetes mellitus with hy perglycemia Kasey Vee, INCLINED RAILWAY OPERATOR 07/18/2020 E55.9 Vitamin D deficiency, unspecifie d Kasey Vee, INCLINED RAILWAY OPERATOR 07/18/2020 E78.00 Pure hypercholesterolemia, unspe cified Kasey Vee, INCLINED RAILWAY OPERATOR 07/18/2020 K74.69 Other cirrhosis of liver Kasey Vee, INCLINED RAILWAY OPERATOR 01/20/2020 E11.65 Type 2 diabetes mellitus with hy perglycemia Kasey Vee, KIM 01/20/2020 E55.9 Vitamin D deficiency, unspecifie d Kasey Vee, KIM 01/20/2020 E78.00 Pure hypercholesterolemia, unspe cified Kasey Vee, INCLINED RAILWAY OPERATOR 01/20/2020 K74.69 Other cirrhosis of liver Kasey Vee, KIM 01/20/2020 Z01.89 Encounter for other specified sp ecial examinations Kasey Vee NP Plan of Treatment 07/18/2020 - Kasey Vee NP* E11.65 Type 2 diabetes mellitus with hyperglycemia* New Labs:* Urine Micro/Creat Ratio Random, Ordered: 07/18/20 * Comments:* 07/18/20- in office A1c= (7.1%, 7.3%, 7.2%, 6.8%,7.2 %, 7.7%, 9.6%, 6.9%) Random BS= 157 Meter download: fasting- 128-228Current medication: Jardiance 25 mg daily. Trulicity 1.5 mg weekly * E55.9 Vitamin D deficiency, unspecified* New Labs:* Vitamin D 25-Hydroxy, Ordered: 07/18/20 * Comments:* Repeat level May 2018 = 63. followed by PCP * E78.00 Pure hypercholesterolemia, unspecified* New Labs:* Lipid Panel, Ordered: 07/18/20 * Comprehensive Metabolic Profil, Ordered: 07/18/20 * Comments:* cardiology is following LDL's. Labs [...]
--- OUTSIDE RECORDS SUMMARY | 2020-09-04 07:28 | CCD | Continuity of Care Document ---
Author Author Ignacio VEE NP Organization Unknown Address [address] [place] [address] Phone [phone] Care Team Providers Care Foxing Cutting Machine Operator Name Role Phone Yovany Del Cid MD AUTM [phone] Camille Rosa MD AUTM [phone] Problems Active Problems Provider Date Essential hypertension [...] Tablets 1 by mouth every day Unknown Immunizations Description No Information Available Vital Signs [...] Date Facility Test Result H/L Range Note Urine Micro/Creat Ratio Random 08/21/2020 [facility] [address] [place] [address] [phone] - Creatinine, Urine 122.0 mg/dL Normal Malb Urine Siemens 19.6 mg/L Normal Joenl/Creat Ratio 16.0 MCG/MG Normal 0.0-30.0 1 Laboratory test finding 08/21/[facility] [address] [place] [address] [phone])- - Total 25(Oh) Vitamin D 26.2 NG/ML Low 30.0-100.0 Lipid Panel 08/21/2020 [facility] [address] [place] [address] (315)- - Triglycerides Level 173 mg/dL High <150 Cholesterol Level 121 mg/dL Normal <200 HDL Cholesterol 39 mg/dL Low >40 LDL Cholesterol 47 mg/dL Normal <100 Non-HDL-C 82 mg/dL Normal Cholesterol Risk Ratio 3.102 Normal <5 Comprehensive Metabolic Profil 08/21/2020 [facility] [address] [place] [address] [phone] - Glucose, Fasting 211 mg/dL High 70-100 Blood Urea Nitrogen 10 mg/dL Normal 7-18 Creatinine For GFR 0.89 mg/dL Normal 0.70-1.30 Glomerular Filtration Rate > 60.0 Normal >56 2 Sodium Level 140 mEq/L Normal 136-145 Potassium Serum 4.0 mEq/L Normal 3.5-5.1 Chloride Level 105 mEq/L Normal 98-107 Carbon Dioxide Level 30 mEq/L Normal 21-32 Anion Gap 5 mEq/L Low 8-16 Calcium Level 9.3 mg/dL Normal 8.5-10.1 Ast/Sgot 89 U/L High 7-37 Alt/SGPT 110 U/L High 12-78 Alkaline Phosphatase 136 U/L High 45-117 Bilirubin,Total 0.5 mg/dL Normal 0.2-1.0 Total Protein 7.5 GM/DL Normal 6.4-8.2 Albumin 3.5 GM/DL Normal 3.2-5.2 Albumin/Globulin Ratio 0.9 Normal Laboratory test finding 07/18/2020 In House Hemoglobin A1c 7.5 Glucose 157 1 THE [place] DI[employer]ET[employer] ASSOC[employer] ATION STATES THAT MICROALBUMINURIA IS PRESENT IF THE MICROALBUMIN/CREATININE RATIO EXCEEDS 30 MCG/MG. THE THRESHOLD FOR CLINICAL ALBUMINURIA IS REACHED AT 300 MCG/MG. THE CLASSIFICATION OF A PATIENT SHOULD BE BASED UPON AT LEAST 2 OF 3 ABNORMAL RESULTS ON SPECIMENS COLLECTED WITHIN A 3 TO 6 MONTH TIME FRAME. 2 Units are mL/min/1.73 m2 Chronic Kidney Disease Staging per NKF: Stage I & II GFR >=60 Normal to Mildly Decreased Stage III GFR 30-59 Moderately Decreased Stage IV GFR 15-29 Severely Decreased Stage V GFR <15 Very Little GFR Left ESRD GFR <15 on PEACE OFFICER Procedures Date Code Description Status 01/20/2020 [id number] Diabetic Foot Exam Completed Medical Devices Description No Information Available Encounters Type Date Location Provider Dx Diagnosis Office Visit 07/18/2020 9:45a DR. Michelle Vee, KNIFEMAN E1 1.65 Type 2 diabetes mellitus with hyperglycemia E55.9 Vitamin D deficiency, unspec ified E78.00 Pure hypercholesterolemia, u nspecified K74.69 Other cirrhosis of liver Assessments Date Code Description Provider 07/18/2020 E11.65 Type 2 diabetes mellitus with hy perglycemia Kasey Vee NP 07/18/2020 E55.9 Vitamin D deficiency, unspecifie d Kasey Vee NP 07/18/2020 E78.00 Pure hypercholesterolemia, unspe cified Kasey Vee NP 07/18/2020 K74.69 Other cirrhosis of liver Kasey Vee NP Plan of Treatment Future Appointment(s):* 01/16/2021 8:45 am - Kasey Vee NP at DR. Michelle Delgado 07/18/2020 - Kasey Vee NP* E11.65 Type 2 diabetes mellitus with hyperglycemia* Comments:* 07/18/20- in office A1c= 7.3%(7.1%, 7.3%, 7.2%, 6.8%,7.2 %, 7.7%, 9.6%, 6.9%) Random BS= 157 Meter download: fasting- 128- 228Current medication: Jardiance 25 mg daily. Trulicity 1.5 mg weekly Has been eating more fruitNo exercise- has been on vacation. Will continue current tx. RTO 6 months. * Follow up:* Follow up in 6 months. LEO * E55.9 Vitamin D deficiency, unspecified* Comments:* Repeat level May 2018 = 63. followed by PCP Will recheck Vit D level * E78.00 Pure hypercholesterolemia, unspecified* Comments:* cardiology is following LDL's. Labs done 08/26/2019- chol= 130, Trig= 224, HDL= 34, LDL= 51Current medications: Praluent. No recent labs doneWill check lipid panel and CMP * K74.69 Other cirrhosis of liver* Comments:* His liver biopsy from 06/18/17 did show early cirrhosis. Labs done 08/26/2019- AST= 98, ALT= 166- unchanged from previous Had been seen by gastro- 06/16/19 Pt has colonoscopy scheduled for August Functional Status Description No Information Available Mental Status Description No Information Available Referrals Description No Information Available
--- OUTSIDE RECORDS SUMMARY | 2020-09-04 07:28 | CCD | Continuity of Care Document ---
Author Author Ignacio VEE NP Organization Unknown Address [address] [place] [address] Phone [phone] Care Team Providers Care Operations Support Analyst Name Role Phone Yovany Del Cid MD AUTM [phone] Camille Rosa MD AUTM [phone] Problems Active Problems Provider Date Essential hypertension [...] Range Note Urine Micro/Creat Ratio Random 08/21/2020 [facility] [address] [place] [address] (315)- - Creatinine, Urine 122.0 mg/dL Normal Malb Urine Siemens 19.6 mg/L Normal Jonel/Creat Ratio 16.0 MCG/MG Normal 0.0-30.0 1 Laboratory test finding [facility] [address] [place] [address] (315)- - Total 25(Oh) Vitamin D 26.2 NG/ML Low 30.0-100.0 Lipid Panel 08/21/2020 [facility] [address] [place] [address] (315)- - Triglycerides Level 173 mg/dL High <150 Cholesterol Level 121 mg/dL Normal <200 HDL Cholesterol 39 mg/dL Low >40 LDL Cholesterol 47 mg/dL Normal <100 Non-HDL-C 82 mg/dL Normal Cholesterol Risk Ratio 3.102 Normal <5 Comprehensive Metabolic Profil 08/21/2020 [facility] [address] [place] [address] [phone] - Glucose, Fasting 211 mg/dL High 70-100 [...] Hemoglobin A1c 7.5 Glucose 157 1 THE [place] [employer] ATION STATES THAT MICROALBUMINURIA IS [...] Little GFR Left ESRD GFR <15 on ORDER PICKER Procedures Date Code Description Status 01/20/2020 [id number] Diabetic Foot Exam Completed Medical Devices Description No Information Available Encounters Type Date Location Provider Dx Diagnosis Office Visit 07/18/2020 9:45a DR. Michelle Vee, BANDING MACHINE OPERATOR E1 1.65 Type 2 diabetes mellitus [...]
--- OUTSIDE RECORDS SUMMARY | 2020-09-04 07:28 | CCD | Continuity of Care Document ---
Author Author Ignacio OSUNA [facility] Organization Unknown Address [address] [place] [address], [address] [place] [address] Phone [phone] Care Team Providers Care Bone Glue Maker Name Role Phone Yovany Del Cid M.D. AUTM [phone] [facility] AUTM [phone] Camille Rosa M.D. AUTM [phone] Problems Active Problems Provider Date Polypoid sinus degeneration Erasmo Hayes MD Onset: Chronic otitis externa Erasmo Hayes MD Onset: 02/23/20 12 Dizziness and giddiness Erasmo Hayes MD Onset: 015 Gallbladder calculus with acute cholecystitis and no o bstruction Alejandro Sawyer MD Onset: 02/20/2015 Obstructive sleep apnea syndrome Juanita Alves, A.N.P. Onset: 06/10/2011 Disturbance of consciousness Juanita Alves A.N.P. Onse t: 02/19/2011 Body mass index 30+ [...] CPT Code Status Date Vaccine Lot # [id number] Given 04/07/2016 Influenza Virus Split 3 Yrs And Above For Intramuscular Use [id number] Given 03/15/2015 Influenza Virus Split 3 Yrs And Above For Intramuscular Use Q2036 Given 04/09/2012 Influenza Vaccine 3 Years Of Age Or Older (Flulaval) Q2036 Given 04/21/2011 Influenza Vaccine 3 Years Of Age Or Older (Flulaval) [id number] Given 04/17/2010 Influenza Virus Split 3 Yrs And Above For Intramuscular Use Q2036 Given Unknown Influenza Vaccine 3 Years Of Age Or Older (Flulaval) Vital Signs Date Vital Result Comment 06/27/2020 9:06am BP Systolic 110 mmHg BP Diastolic 72 mmHg Height 64 inches 5'4" Weight 204.00 lb BMI (Body Mass Index) 35.0 kg/m2 [place] Body Weight 130 lb Weight 92.534 kg BSA (Body Surface Area) 1.97 m2 04/02/2020 11:05am BP Systolic 124 mmHg BP Diastolic 80 mmHg Heart Rate 69 /min O2 % BldC Oximetry 95 % Height 64 inches 5'4" Weight 202.00 lb BMI (Body Mass Index) 34.7 kg/m2 [place] Body Weight 130 lb Weight 91.627 kg BSA (Body Surface Area) 1.96 m2 Results Test Acquired Date Facility Test Result H/L Range Note Comprehensive Metabolic Profil 05/24/2020 [facility] Main Lab [address] [place], [place] [id number] [phone] Glucose, Fasting 117 mg/dL High 70-100 Blood [...] 1.0 Normal 2 Complete Blood Count 05/24/2020 [facility] Main Lab [address] [place], [place] [id number] [phone] White Blood Count 5.2 10 Normal 4.0-10.0 [...] Normal 0-0 3 Laboratory test finding 05/24/2020 [facility] Main Lab [address] [place] [address] [phone] Alpha Fetoprotein Tumor Quant 2.2 NG/ML Normal <8 .1 4, 5 1 Units are mL/min/1.73 m2 Chronic Kidney Disease Staging per NKF: Stage I & II GFR >=60 Normal to Mildly Decreased Stage III GFR 30-59 Moderately Decreased Stage IV GFR 15-29 Severely Decreased Stage V GFR <15 Very Little GFR Left ESRD GFR <15 on HAT CUTTER 2 05/24/20 (May 24) 12:32 PM PRIYANKA OSUNA Reviewed. Stable. Will discuss with patient at 06/05/20 office visit. 3 05/24/20 (May 24) 12:33 PM PRIYANKA OSUNA Reviewed. Stable. Will discuss with patient at 06/05/20 office visit. 4 THE AFP ASSAY IS PERFORMED O N THE EDUonGoAUR BY CHEMILUMINESCENCE AND SHOULD NOT BE COMPARED [...] Provider Dx Diagnosis Office Visit 04/02/2020 11:00a [facility] America Norman MD G47.33 Obstructive sleep apnea (adult) (pediatr ic) J30.9 Allergic rhinitis, unspecifi ed Office Visit 12/28/2019 10:00a [facility] [place] K75.81 Nonalcoholic steatohepatitis (Sánchez) K74.69 Other cirrhosis of liver Assessments Date Code Description Provider 06/27/2020 Z12.11 Encounter for screening for khadar gnant neoplasm of colon KO Melendez 06/27/2020 Z86.010 Personal history of colonic poly ps KO Melendez 06/27/2020 Z80.0 Family history of malignant neop lasm of digestive organs Priyanka A KO sOuna 06/27/2020 K75.81 Nonalcoholic steatohepatitis (Na sh) Priyanka Braxton KO [place] 06/27/2020 K74.69 Other cirrhosis of liver Priyanka A FABRICE OsunaC 04/02/2020 G47.33 Obstructive sleep apnea (adult) (pediatric) Jimmy Norman MD 04/02/2020 J30.9 Allergic rhinitis, unspecified L peggy Norman MD 12/28/2019 K75.81 Nonalcoholic steatohepatitis (Na sh) Priyanka Braxton KO [place] 12/28/2019 K74.69 Other cirrhosis of liver Priyanka Fox KO [place] Plan of Treatment Future Appointment(s):* 04/02/2021 11:00 am - Jimmy Norman MD at [facility] 06/27/2020 - Priyanka Fox KO [place]* Z12.11 Encounter for screening for malignant neoplasm [...] then 6 months for f/u of cirrhosis. Functional Status Description No Information Available Mental Status Description No Information Available Referrals Description No Information Available
--- OUTSIDE RECORDS SUMMARY | 2020-09-04 07:28 | CCD | Continuity of Care Document ---
Author Author Ignacio VEE NP Organization Unknown Address [address] [place] [address] Phone [phone] Care Team Providers Care Breaking Machine Operator Name Role Phone Yovany Del Cid MD AUTM [phone] Camille Rosa MD AUTM [phone] Problems Active Problems Provider Date Essential hypertension [...] In House Hemoglobin A1c 7.5 Glucose 157 Procedures Date Code Description Status 01/20/2020 [id number] Diabetic Foot Exam Completed Medical Devices Description No Information Available Encounters Type Date Location Provider Dx Diagnosis Office Visit 07/18/2020 9:45a DR. Michelle Vee, KIM E1 1.65 Type 2 diabetes mellitus with [...] 6.9%) Random BS= 157 Meter download: fasting- [id number] medication: Jardiance 25 mg daily. Trulicity 1.5 [...]
--- OUTSIDE RECORDS SUMMARY | 2020-09-04 07:28 | CCD | Summary of Care ---
Author Author [facility] Address Unknown Phone Unavailable Care Team Providers Care Basic Sciences Professor Name Role Phone Yovany Del Cid MD PCP Encounter Details Care Team Description Date Type Department 08/23/2020 Hospital CLINICAL PATHOLOGY Encounter EXTERNAL [employer] [address] Allergies Comments Active Allergy Reactions Severity Noted Date Adhesive Tape Rash Low 2016 documented as of this encounter (statuses as of 08/26/2020) Medications End Date Status Medication Sig Dispensed Refills Start Date Active telmisartan (MICARDIS) 80 Take 80 mg by 0 MG tablet mouth. Active montelukast (SINGULAIR) Take 10 mg by 0 10 MG tablet mouth. Active ropinirole (REQUIP) 1 MG Take 1 mg by 0 tablet mouth. Active allopurinol (ZYLOPRIM) Take 300 mg 0 300 MG tablet by mouth. Active ranitidine (ZANTAC) 150 Take 150 mg 0 MG capsule by mouth. Active atorvastatin (LIPITOR) 40 Take 40 mg by 0 MG tablet mouth. Active furosemide (LASIX) 20 MG Take 20 mg by 0 tablet mouth. Active metformin (GLUCOPHAGE) Take 500 mg 0 500 MG tablet by mouth. Active aspirin EC 81 MG EC Take 81 mg by 0 tablet mouth. Active sildenafil (VIAGRA) 100 Take 100 mg 0 MG tablet by mouth. Active Multiple Vitamin (DAILY Take 1 tablet 0 NANCY) per tablet by mouth. Active meloxicam (MOBIC) 7.5 MG TAKE ONE 0 06/23 tablet TABLET BY 6 MOUTH TWICE A DAY Active mometasone (NASONEX) 50 SPRAY ONE 0 MCG/ACT nasal spray SPRAY WITH 6 PUMP IN EACH NOSTRIL TWICE A DAY documented as of this encounter (statuses as of 08/26/2020) Active Problems Problem Noted Date Cervical myelopathy 08/14/2016 DDD (degenerative disc disease), lumbar 2016 Neural foraminal stenosis of lumbar spine 2016 Lumbar stenosis 2016 documented as of this encounter (statuses as of 08/26/2020) Social History Date Tobacco Use Types Packs/Day Years Used Former Smoker Smokeless Tobacco: Never Used Drinks/Week oz/Week Comments Alcohol Use Yes Sex Assigned at Date Recorded Not on file documented as of this encounter Last Filed Vital Signs Not on filedocumented in this encounter Plan of Treatment Date/Time Name Type Priority Associated Diag noses 08/23/2020 2:56 PM EST COVID-19 Saliva PCR Microbiology Routine Order Schedule Name Type Priority Associated Diag noses Once for 1 Occurrences starting 08/23/19 21 until 08/23/2020 COVID-19 Saliva PCR Microbiology Routine Health Maintenance Due Date Last Done Comments Hepatitis C Screening (B. 1960 [id number]) MMR Vaccines (1 of 1 - 1962 Standard series) Varicella Vaccines (1 of 1962 2 - 2-dose childhood series) DTaP,Tdap,and Td Vaccines 02/26/1968 (1 - Tdap) HIV Screening 1974 Colon Cancer Screening 10 2011 yrs Influenza Vaccine 04/12/2020 Pneumococcal Vaccine: 65+ 2026 Years (1 of 1 - PPSV23) HIB Vaccines Aged Out No longer eligible based on patient's age to complete this topic Hepatitis A Vaccines Aged Out No longer eligibl e based on patient's age to complete this topic Hepatitis B Vaccines Aged Out No longer eligibl e based on patient's age to complete this topic IPV Vaccines Aged Out No longer eligible based on patient's age to complete this topic Pneumococcal Vaccine: Aged Out No longer eligib le based on patient's age to Pediatrics (0 to 5 Years) complete this topic and At-Risk Patients (6 to 64 Years) documented as of this encounter Results Not on filedocumented in this encounter
--- OUTSIDE RECORDS SUMMARY | 2020-09-04 07:29 | CCD ---
Author Author [facility] Organization [facility] Address Unknown Phone Unavailable Care Team Providers Care Improvement Nurse Name Role Phone [facility] Estefany [facility], PA-C Unavailable Unavailabl e Fish, [facility], PA-C Unavailable Unavailabl e Fish, [facility], PA-C Unavailable Unavailabl e Fish, [facility], PA-C Unavailable Unavailabl e Fish, [facility], PA-C Unavailable Unavailabl e Fish, [facility], PA-C Unavailable Unavailabl e Fish, [facility], PA-C Unavailable Unavailabl e Fish, [facility], PA-C Unavailable Unavailabl e Fish, [facility], PA-C Unavailable Unavailabl e Fish, [facility], PA-C Unavailable Unavailabl e Fish, [facility], PA-C Unavailable Unavailabl e Fish, [facility], PA-C Unavailable Unavailabl e Fish, [facility], PA-C Unavailable Unavailabl e Fish, [facility], PA-C Unavailable Unavailabl e Fish, [facility], PA-C Unavailable Unavailabl e Fish, [facility], PA-C Unavailable Unavailabl e Fish, [facility], PA-C Unavailable Unavailabl e Fish, [facility], PA-C Unavailable Unavailabl e Fish, [facility], PA-C Unavailable Unavailabl e Fish, [facility], PA-C Unavailable Unavailabl e Fish, [facility], PA-C Unavailable Unavailabl e Fish, [facility], PA-C Unavailable Unavailabl e Fish, [facility], PA-C Unavailable Unavailabl e Fish, [facility], PA-C Unavailable Unavailabl e Fish, [facility], PA-C Unavailable Unavailabl e Fish, [facility], PA-C Unavailable Unavailabl e Fish, [facility], PA-C Unavailable Unavailabl e Fish, [facility], PA-C Unavailable Unavailabl e Fish, [facility], PA-C Unavailable Unavailabl e Fish, [facility], PA-C Unavailable Unavailabl e Fish, [facility], PA-C Unavailable Unavailabl e Fish, [facility], PA-C Unavailable Unavailabl e Fish, [facility], PA-C Unavailable Unavailabl e Fish, B Nik KIMBLE Unavailable Unavailable Fish, B Nik KIMBLE Unavailable Unavailable Fish, B Nik KIMBLE Unavailable Unavailable Fish, B Nik KIMBLE Unavailable Unavailable Fish, B Nik KIMBLE Unavailable Unavailable Fish, B Nik KIMBLE Unavailable Unavailable Fish, B Nik KIMBLE Unavailable Unavailable Fish, B Nik KIMBLE Unavailable Unavailable Fish, B Nik KIMBLE Unavailable Unavailable Fish, B Nik KIMBLE Unavailable Unavailable Fish, B Nik KIMBLE Unavailable Unavailable Fish, B Nik KIMBLE Unavailable Unavailable Fish, B Nik KIMBLE Unavailable Unavailable Fish, B Nik KIMBLE Unavailable Unavailable Fish, B Nik KIMBLE Unavailable Unavailable Fish, B Nik KIMBLE Unavailable Unavailable Fish, B Nik KIMBLE Unavailable Unavailable Fish, B Nik KIMBLE Unavailable Unavailable Fish, B Nik KIMBLE Unavailable Unavailable Fish, B Nik KIMBLE Unavailable Unavailable Fish, B Nik KIMBLE Unavailable Unavailable Fish, B Nik KIMBLE Unavailable Unavailable Fish, B Nik KIMBLE Unavailable Unavailable Fish, B Nik KIMBLE Unavailable Unavailable Fish, B Nik KIMBLE Unavailable Unavailable Fish, B Nik KIMBLE Unavailable Unavailable Fish, B Nik KIMBLE Unavailable Unavailable Fish, B Nik KIMBLE Unavailable Unavailable Fish, B Nik KIMBLE Unavailable Unavailable Fish, B Nik KIMBLE Unavailable Unavailable Fish, B Nik KIMBLE Unavailable Unavailable Fish, B Nik KIMBLE Unavailable Unavailable Fish, B Nik KIMBLE Unavailable Unavailable Fish, Aixa Zaragoza MD Unavailable Unavailable Fish, B Nik KIMBLE Unavailable Unavailable Fish, B Nik KIMBLE Unavailable Unavailable Fish, B Nik KIMBLE Unavailable Unavailable Fish, B Nik KIMBLE Unavailable Unavailable Fish, B Nik KIMBLE Unavailable Unavailable Fish, B Nik KIMBLE Unavailable Unavailable Fish, B Nik KIMBLE Unavailable Unavailable Fish, B Nik KIMBLE Unavailable Unavailable Fish, B Nik KIMBLE Unavailable Unavailable Fish, B Nik KIMBLE Unavailable Unavailable Fish, B Nik KIMBLE Unavailable Unavailable Fish, B Nik KIMBLE Unavailable Unavailable Fish, B Nik KIMBLE Unavailable Unavailable Fish, B Nik KIMBLE Unavailable Unavailable Fish, B Nik KIMBLE Unavailable Unavailable Fish, B Nik KIMBLE Unavailable Unavailable Fish, B Nik KIMBLE Unavailable Unavailable Fish, B Nik KIMBLE Unavailable Unavailable Fish, B Nik KIMBLE Unavailable Unavailable Fish, B Michelle KIMBLE Unavailable Unavailable Fish, B Michelle KIMBLE Unavailable Unavailable Fish, B Michelle KIMBLE Unavailable Unavailable Fish, B Michelle KIMBLE Unavailable Unavailable Fish, B Michelle KIMBLE Unavailable Unavailable Fish, B Michelle KIMBLE Unavailable Unavailable Fish, B Michelle KIMBLE Unavailable Unavailable Fish, B Michelle KIMBLE Unavailable Unavailable Fish, B Michelle KIMBLE Unavailable Unavailable Fish, B Michelle KIMBLE Unavailable Unavailable Fish, B Michelle KIMBLE Unavailable Unavailable Fish, B Michelle KIMBLE Unavailable Unavailable Fish, B Michelle KIMBLE Unavailable Unavailable Fish, B Michelle KIMBLE Unavailable Unavailable Fish, B Michelle KIMBLE Unavailable Unavailable Fish, B Michelle KIMBLE Unavailable Unavailable Fish, B Michelle KIMBLE Unavailable Unavailable Fish, B Michelle KIMBLE Unavailable Unavailable Fish, B Michelle KIMBLE Unavailable Unavailable Fish, B Michelle KIMBLE Unavailable Unavailable Fish, B Michelle KIMBLE Unavailable Unavailable Fish, B Michelle KIMBLE Unavailable Unavailable Fish, B Michelle KIMBLE Unavailable Unavailable Fish, B Michelle KIMBLE Unavailable Unavailable Fish, Aixa Martinez MD Unavailable Unavailable Fish, Aixa Martinez MD Unavailable Unavailable Fish, Aixa Martinez MD Unavailable Unavailable Fish, Aixa Martinez MD Unavailable Unavailable Fish, Aixa Martinez MD Unavailable Unavailable Fish, B Michelle KIMBLE Unavailable Unavailable Fish, Aixa Martinez MD Unavailable Unavailable Fish, Aixa Martinez MD Unavailable Unavailable Fish, B Michelle KIMBLE Unavailable Unavailable Fish, Aixa Martinez MD Unavailable Unavailable Fish, Aixa Martinez MD Unavailable Unavailable Fish, Aixa Martinez MD Unavailable Unavailable Fish, B Michelle KIMBLE Unavailable Unavailable Fish, B Michelle KIMBLE Unavailable Unavailable Fish, B Michelle KIMBLE Unavailable Unavailable Fish, B Michelle KIMLBE Unavailable Unavailable Fish, B Michelle KIMBLE Unavailable Unavailable Fish, Aixa Martinez MD Unavailable Unavailable Fish, B Michelle KIMBLE Unavailable Unavailable Fish, B Michelle KIMBLE Unavailable Unavailable Fish, B Michelle KIMBLE Unavailable Unavailable Fish, B Michelle KIMBLE Unavailable Unavailable Fish, B Michelle KIMBLE Unavailable Unavailable Fish, B Michelle KIMBLE Unavailable Unavailable Fish, B Michelle KIMBLE Unavailable Unavailable Fish, B Michelle KIMBLE Unavailable Unavailable Fish, B Michelle KIMBLE Unavailable Unavailable Fish, B Michelle KIMBLE Unavailable Unavailable Fish, B Michelle KIMBLE Unavailable Unavailable Fish, B Michelle KIMBLE Unavailable Unavailable Fish, B Michelle KIMBLE Unavailable Unavailable Fish, B Michelle KIMBLE Unavailable Unavailable Fish, B Michelle KIMBLE Unavailable Unavailable Fish, B Michelle KIMBLE Unavailable Unavailable Fish, B Michelle KIMBLE Unavailable Unavailable Fish, B Michelle KIMBLE Unavailable Unavailable Fish, B Michelle KIMBLE Unavailable Unavailable Fish, B Michelle KIMBLE Unavailable Unavailable Fish, B Michelle KIMBLE Unavailable Unavailable Fish, B Michelle KIMBLE Unavailable Unavailable COOK, B RIYA INDEPENDENT DISTRIBUTOR Unavailable Unavailable COOK, B RIYA INDEPENDENT DISTRIBUTOR Unavailable Unavailable COOK, B RIYA INDEPENDENT DISTRIBUTOR Unavailable Unavailable COOK, B RIYA INDEPENDENT DISTRIBUTOR Unavailable Unavailable COOK, B RIYA INDEPENDENT DISTRIBUTOR Unavailable Unavailable COOK, B RIYA INDEPENDENT DISTRIBUTOR Unavailable Unavailable COOK, B RIYA INDEPENDENT DISTRIBUTOR Unavailable Unavailable COOK, B RIYA INDEPENDENT DISTRIBUTOR Unavailable Unavailable COOK, B RIYA INDEPENDENT DISTRIBUTOR Unavailable Unavailable COOK, B RIYA INDEPENDENT DISTRIBUTOR Unavailable Unavailable COOK, B RIYA INDEPENDENT DISTRIBUTOR Unavailable Unavailable COOK, B RIYA INDEPENDENT DISTRIBUTOR Unavailable Unavailable COOK, B RIYA INDEPENDENT DISTRIBUTOR Unavailable Unavailable COOK, B RIYA INDEPENDENT DISTRIBUTOR Unavailable Unavailable COOK, B RIYA INDEPENDENT DISTRIBUTOR Unavailable Unavailable COOK, B RIYA INDEPENDENT DISTRIBUTOR Unavailable Unavailable COOK, B RIYA INDEPENDENT DISTRIBUTOR Unavailable Unavailable COOK, B RIYA INDEPENDENT DISTRIBUTOR Unavailable Unavailable COOK, B RIYA INDEPENDENT DISTRIBUTOR Unavailable Unavailable COOK, B RIYA INDEPENDENT DISTRIBUTOR Unavailable Unavailable COOK, B RIYA INDEPENDENT DISTRIBUTOR Unavailable Unavailable COOK, B RIYA INDEPENDENT DISTRIBUTOR Unavailable Unavailable COOK, B RIYA INDEPENDENT DISTRIBUTOR Unavailable Unavailable COOK, B RIYA INDEPENDENT DISTRIBUTOR Unavailable Unavailable COOK, B RIYA INDEPENDENT DISTRIBUTOR Unavailable Unavailable COOK, B RIYA INDEPENDENT DISTRIBUTOR Unavailable Unavailable COOK, B RIYA INDEPENDENT DISTRIBUTOR Unavailable Unavailable COOK, B RIYA INDEPENDENT DISTRIBUTOR Unavailable Unavailable COOK, B RIYA INDEPENDENT DISTRIBUTOR Unavailable Unavailable COOK, B RIYA INDEPENDENT DISTRIBUTOR Unavailable Unavailable COOK, B RIYA INDEPENDENT DISTRIBUTOR Unavailable Unavailable COOK, B RIYA INDEPENDENT DISTRIBUTOR Unavailable Unavailable COOK, B RIYA INDEPENDENT DISTRIBUTOR Unavailable Unavailable COOK, B RIYA INDEPENDENT DISTRIBUTOR Unavailable Unavailable COOK, B RIYA INDEPENDENT DISTRIBUTOR Unavailable Unavailable COOK, B RIYA INDEPENDENT DISTRIBUTOR Unavailable Unavailable COOK, B RIYA INDEPENDENT DISTRIBUTOR Unavailable Unavailable COOK, B RIYA INDEPENDENT DISTRIBUTOR Unavailable Unavailable COOK, B RIYA INDEPENDENT DISTRIBUTOR Unavailable Unavailable COOK, B RIYA INDEPENDENT DISTRIBUTOR Unavailable Unavailable COOK, B RIYA INDEPENDENT DISTRIBUTOR Unavailable Unavailable COOK, B RIYA INDEPENDENT DISTRIBUTOR Unavailable Unavailable COOK, B RIYA INDEPENDENT DISTRIBUTOR Unavailable Unavailable COOK, B RIYA INDEPENDENT DISTRIBUTOR Unavailable Unavailable COOK, B RIYA INDEPENDENT DISTRIBUTOR Unavailable Unavailable COOK, B RIYA INDEPENDENT DISTRIBUTOR Unavailable Unavailable COOK, B RIYA INDEPENDENT DISTRIBUTOR Unavailable Unavailable COOK, B RIYA INDEPENDENT DISTRIBUTOR Unavailable Unavailable COOK, B RIYA INDEPENDENT DISTRIBUTOR Unavailable Unavailable COOK, B RIYA INDEPENDENT DISTRIBUTOR Unavailable Unavailable COOK, B RIYA INDEPENDENT DISTRIBUTOR Unavailable Unavailable COOK, B RIYA INDEPENDENT DISTRIBUTOR Unavailable Unavailable COOK, B RIYA INDEPENDENT DISTRIBUTOR Unavailable Unavailable COOK, B RIYA INDEPENDENT DISTRIBUTOR Unavailable Unavailable COOK, B RIYA INDEPENDENT DISTRIBUTOR Unavailable Unavailable COOK, B RIYA INDEPENDENT DISTRIBUTOR Unavailable Unavailable COOK, B RIYA INDEPENDENT DISTRIBUTOR Unavailable Unavailable COOK, B RIYA INDEPENDENT DISTRIBUTOR Unavailable Unavailable COOK, B RIYA INDEPENDENT DISTRIBUTOR Unavailable Unavailable COOK, B RIYA INDEPENDENT DISTRIBUTOR Unavailable Unavailable COOK, B RIYA INDEPENDENT DISTRIBUTOR Unavailable Unavailable COOK, B RIYA INDEPENDENT DISTRIBUTOR Unavailable Unavailable COOK, B RIYA INDEPENDENT DISTRIBUTOR Unavailable Unavailable COOK, B RIYA INDEPENDENT DISTRIBUTOR Unavailable Unavailable Charlebois, A Priyanka RPA C Unavailable Unavailable Charlebois, A Priyanka RPA C Unavailable Unavailable Charlebois, A Priyanka RPA C Unavailable Unavailable Charlebois, A Priyanka RPA C Unavailable Unavailable Charlebois, A Priyanka RPA C Unavailable Unavailable Charlebois, A Priyanka RPA C Unavailable Unavailable Charlebois, A Priyanka RPA C Unavailable Unavailable Charlebois, A Priyanka RPA C Unavailable Unavailable Charlebois, A Priyanka RPA C Unavailable Unavailable Charlebois, A Priyanka RPA C Unavailable Unavailable Charlebois, A Priyanka RPA C Unavailable Unavailable Charlebois, A Priyanka RPA C Unavailable Unavailable Charlebois, A Priyanka RPA C Unavailable Unavailable Charlebois, A Priyanka RPA C Unavailable Unavailable Charlebois, A Priyanka RPA C Unavailable Unavailable Charlebois, A Priyanka RPA C Unavailable Unavailable Charlebois, A Priyanka RPA C Unavailable Unavailable Charlebois, A Priyanka RPA C Unavailable Unavailable Charlebois, A Priyanka RPA C Unavailable Unavailable Charlebois, A Priyanka RPA C Unavailable Unavailable Charlebois, A Priyanka RPA C Unavailable Unavailable Charlebois, A Priyanka RPA C Unavailable Unavailable Charlebois, A Priyanka RPA C Unavailable Unavailable Charlebois, A Priyanka RPA C Unavailable Unavailable Charlebois, A Priyanka RPA C Unavailable Unavailable Charlebois, A Priyanka RPA C Unavailable Unavailable Charlebois, A Priyanka RPA C Unavailable Unavailable Charlebois, A Priyanka RPA C Unavailable Unavailable Charlebois, A Priyanka RPA C Unavailable Unavailable Charlebois, A Priyanka RPA C Unavailable Unavailable Charlebois, A Priyanka RPA C Unavailable Unavailable Marika Mahan MD Unavailable Unavailable Marika Mahan MD Unavailable Unavailable Marika Mahan MD Unavailable Unavailable Marika Mahan MD Unavailable Unavailable Marika Mahan MD Unavailable Unavailable Marika Mahan MD Unavailable Unavailable Marika Mahan MD Unavailable Unavailable Marika Mahan MD Unavailable Unavailable Marika Mahan MD Unavailable Unavailable Marika Mahan MD Unavailable Unavailable Marika Mahan MD Unavailable Unavailable Marika Mahan MD Unavailable Unavailable Marika Mahan MD Unavailable Unavailable Marika Mahan MD Unavailable Unavailable Marika Mahan MD Unavailable Unavailable Marika Mahan MD Unavailable Unavailable Marika Mahan MD Unavailable Unavailable Marika Mahan MD Unavailable Unavailable Marika Mahan MD Unavailable Unavailable Marika Mahan MD Unavailable Unavailable Marika Mahan MD Unavailable Unavailable Marika Mahan MD Unavailable Unavailable Marika Mahan MD Unavailable Unavailable Marika Mahan MD Unavailable Unavailable Marika Mahan MD Unavailable Unavailable Marika Mahan MD Unavailable Unavailable Marika Mahan MD Unavailable Unavailable Marika Mahan MD Unavailable Unavailable Marika Mahan MD Unavailable Unavailable Marika Mahan MD Unavailable Unavailable Marika Mahan MD Unavailable Unavailable Marika Mahan MD Unavailable Unavailable Marika Mahan MD Unavailable Unavailable Marika Mahan MD Unavailable Unavailable Marika Mahan MD Unavailable Unavailable Marika Mahan MD Unavailable Unavailable Marika Mahan MD Unavailable Unavailable Marika Mahan MD Unavailable Unavailable Marika Mahan MD Unavailable Unavailable Marika Mahan MD Unavailable Unavailable Marika Mahan MD Unavailable Unavailable Marika Mahan MD Unavailable Unavailable Negrito Marika MD Unavailable Unavailable Wendy, N Kemar INDEPENDENT DISTRIBUTOR Unavailable Unavailable [place], N Kemar INDEPENDENT DISTRIBUTOR Unavailable Unavailable [place], N Kemar INDEPENDENT DISTRIBUTOR Unavailable Unavailable Wendy, N Kemar INDEPENDENT DISTRIBUTOR Unavailable Unavailable Wendy, N Kemar INDEPENDENT DISTRIBUTOR Unavailable Unavailable Wendy, N Kemar INDEPENDENT DISTRIBUTOR Unavailable Unavailable Wendy, N Kemar INDEPENDENT DISTRIBUTOR Unavailable Unavailable Wendy, N Kemar INDEPENDENT DISTRIBUTOR Unavailable Unavailable Wendy, N Kemar INDEPENDENT DISTRIBUTOR Unavailable Unavailable [place], N Kemar INDEPENDENT DISTRIBUTOR Unavailable Unavailable [place], N Kemar INDEPENDENT DISTRIBUTOR Unavailable Unavailable [place], N Kemar INDEPENDENT DISTRIBUTOR Unavailable Unavailable Wendy, N Kemar INDEPENDENT DISTRIBUTOR Unavailable Unavailable [place], N Kemar INDEPENDENT DISTRIBUTOR Unavailable Unavailable Wendy, N Kemar INDEPENDENT DISTRIBUTOR Unavailable Unavailable Wendy, N Kemar INDEPENDENT DISTRIBUTOR Unavailable Unavailable Wendy, N Kemar INDEPENDENT DISTRIBUTOR Unavailable Unavailable Wendy, N Kemar INDEPENDENT DISTRIBUTOR Unavailable Unavailable [place], N Kemar INDEPENDENT DISTRIBUTOR Unavailable Unavailable Wendy, N Kemar INDEPENDENT DISTRIBUTOR Unavailable Unavailable [place], N Kemar INDEPENDENT DISTRIBUTOR Unavailable Unavailable [place], N Kemar INDEPENDENT DISTRIBUTOR Unavailable Unavailable Wendy, N Kemar INDEPENDENT DISTRIBUTOR Unavailable Unavailable Wendy, N Kemar INDEPENDENT DISTRIBUTOR Unavailable Unavailable [place], N Kemar INDEPENDENT DISTRIBUTOR Unavailable Unavailable [place], N Kemar INDEPENDENT DISTRIBUTOR Unavailable Unavailable [place], N Kemar INDEPENDENT DISTRIBUTOR Unavailable Unavailable [place], N Kemar INDEPENDENT DISTRIBUTOR Unavailable Unavailable Wendy, N Kemar INDEPENDENT DISTRIBUTOR Unavailable Unavailable [place], N Kemar INDEPENDENT DISTRIBUTOR Unavailable Unavailable Wendy, N Kemar INDEPENDENT DISTRIBUTOR Unavailable Unavailable Doremus, E Radha PA Unavailable Unavailable Doremus, E Radha PA Unavailable Unavailable Doremus, E Radha PA Unavailable Unavailable Doremus, E Radha PA Unavailable Unavailable Doremus, E Radha PA Unavailable Unavailable Doremus, E Radha PA Unavailable Unavailable Doremus, E Radha PA Unavailable Unavailable Doremus, E Radha PA Unavailable Unavailable Doremus, E Radha PA Unavailable Unavailable Doremus, E Radha PA Unavailable Unavailable Doremus, E Radha PA Unavailable Unavailable Doremus, E Radha PA Unavailable Unavailable Doremus, E Radha PA Unavailable Unavailable Doremus, E Radha PA Unavailable Unavailable Doremus, E Radha PA Unavailable Unavailable Doremus, E Radha PA Unavailable Unavailable Doremus, E Radha PA Unavailable Unavailable Doremus, E Radha PA Unavailable Unavailable Doremus, E Radha PA Unavailable Unavailable Magy RUEDA DO Unavailable [phone] Magy RUEDA DO Unavailable [phone] QUENTIN, A. MURTAZA DO Unavailable [phone] QUENTINMagy MURTAZA DO Unavailable [phone] QUENTINMagy MURTAZA DO Unavailable [phone] QUENTINMagy MURTAZA DO Unavailable [phone] QUENTINMagy MURTAZA DO Unavailable [phone] QUENTIN Magy MURTAZA DO Unavailable [phone] QUENTIN, Magy MURTAZA DO Unavailable [phone] QUENTIN, Magy MURTAZA DO Unavailable [phone] QUENTIN, Magy MURTAZA DO Unavailable [phone] QUENTIN, StasLilli MURTAZA DO Unavailable [phone] QUENTIN, Magy MURTAZA DO Unavailable [phone] QUENTIN StasLilli MURTAZA DO Unavailable [phone] QUENTIN StasLilli MURTAZA DO Unavailable [phone] QUENTIN, Magy MURTAZA DO Unavailable [phone] QUENTINMagy MURTAZA DO Unavailable [phone] QUENTIN, Magy MURTAZA DO Unavailable [phone] QUENTIN, Magy MURTAZA DO Unavailable [phone] QUENTIN, Magy MURTAZA DO Unavailable [phone] QUENTIN StasLilli MURTAZA DO Unavailable [phone] Danial Norman MD Unavailable Unavailable Danial Norman MD Unavailable Unavailable Danial Norman MD Unavailable Unavailable Danial Norman MD Unavailable Unavailable Danial Norman MD Unavailable Unavailable Danial Norman MD Unavailable Unavailable Danial Norman MD Unavailable Unavailable Danial Norman MD Unavailable Unavailable Danial Norman MD Unavailable Unavailable Danial Norman MD Unavailable Unavailable Danial Norman MD Unavailable Unavailable Danial Norman MD Unavailable Unavailable Danial Norman MD Unavailable Unavailable Danial Norman MD Unavailable Unavailable Danial Norman MD Unavailable Unavailable Danial Norman MD Unavailable Unavailable Danial Norman MD Unavailable Unavailable Danial Norman MD Unavailable Unavailable Danial Norman MD Unavailable Unavailable Danial Norman MD Unavailable Unavailable Norman, Danail Jimmy MD Unavailable Unavailable Norman, Danial Jimmy MD Unavailable Unavailable Norman, Danial Jimmy MD Unavailable Unavailable Norman, Danial Jimmy MD Unavailable Unavailable Norman, Danial Jimmy MD Unavailable Unavailable Norman, Danial Jimmy MD Unavailable Unavailable Norman, Danial Jimmy MD Unavailable Unavailable Norman, Danial Jimmy MD Unavailable Unavailable Norman, Danial Jimmy MD Unavailable Unavailable Norman, Danial Jimmy MD Unavailable Unavailable Norman, Danial Jimmy MD Unavailable Unavailable Norman, Danial Jimmy MD Unavailable Unavailable Norman, Danial Jimmy MD Unavailable Unavailable Norman, Danial Jimmy MD Unavailable Unavailable Norman, Danial Jimmy MD Unavailable Unavailable Norman, Danial Jimmy MD Unavailable Unavailable Norman, Danial Jimmy MD Unavailable Unavailable Norman, Danial Jimmy MD Unavailable Unavailable Norman, Danial Jimmy MD Unavailable Unavailable Norman, Danial Jimmy MD Unavailable Unavailable Norman, Danial Jimmy MD Unavailable Unavailable Norman, Danial Jimmy MD Unavailable Unavailable Norman, Danial Jimmy MD Unavailable Unavailable Norman, Danial Jimmy MD Unavailable Unavailable Norman, Danial Jimmy MD Unavailable Unavailable Norman, Danial Jimmy MD Unavailable Unavailable Norman, Danial Jimmy MD Unavailable Unavailable Norman, Danial Jimmy MD Unavailable Unavailable Norman, Danial Jimmy MD Unavailable Unavailable Norman, Danial Jimmy MD Unavailable Unavailable Norman, Danial Jimmy MD Unavailable Unavailable Re-disclosure Warning The records that you are about to access may contain information from federally-assisted alcohol or drug abuse programs. If such information is present, then the following federally mandated warning applies: This information has been disclosed to you from records protected by federal confidentiality rules (42 CFR part 2). The federal rules prohibit you from making any further disclosure of this information unless further disclosure is expressly permitted by the written consent of the person to whom it pertains or as otherwise permitted by 42 CFR part 2. A general authorization for the release of medical or other information is NOT sufficient for this purpose. The Federal rules restrict any use of the information to criminally investigate or prosecute any alcohol or drug abuse patient.The records that you are about to access may contain highly sensitive health information, the redisclosure of which is protected by Article 27-F of the [facility] Public Health law. If you continue you may have access to information: Regarding HIV / AIDS; Provided by facilities licensed or operated by the [facility] Office of Mental Health; or Provided by the [facility] Office for People With Developmental Disabilities. If such information is present, then the following [facility] mandated warning applies: This information has been disclosed to you from confidential records which are protected by state law. State law prohibits you from making any further disclosure of this information without the specific written consent of the person to whom it pertains, or as otherwise permitted by law. Any unauthorized further disclosure in violation of state law may result in a fine or mcfp sentence or both. A general authorization for the release of medical or other information is NOT sufficient authorization for further disc losure. Allergies and Adverse Reactions Type Description Substance Reaction Status Data Source(s ) Allergy to substance No Known Allergies No known allergies (situation ) [place] (Sameer Luciano MD [facility]) Family History Family Member Name Family Member Gender Family Member Status Date o f Status Description Data Source(s) Unknown Unknown Problem [facility] ([facility] Unknown Male Problem MEDENT ([facility]) () - age 82 Unknown Male Problem MEDENT (Cristina ibarra [facility] () Encounters Encounter Providers Location Date Indications Data Source(s ) Outpatient Attender: Marika Mahan MD 12:00:00 AM [facility] - 08/24/2020 12:00:00 AM [facility] Outpatient<td ID="encounterTypeDescripti onID1">OCT DISC</td><td></td><td>Sameer Alvarez MD [facility]</td><td>08/21/2020</td><td>9:27AM</td><td>9:46AM</td><td></td> Sameer Alvarez MD [facility] 08/21/2020 09:27:00 AM [facility] - 08/21/2020 09:46:00 AM [facility] [place] (Sameer Luciano MD [facility]) Outpatient<td ID="encounterTypeDescripti onID0">TESTING - VISUAL FIELD & OCT</td><td>Murtaza Rueda DO</td><td>Sameer Alvarez MD [facility]</td><td>08/21/2020</td><td>9:27AM</td><td>9:47AM</td><td><content ID="encounterDiagnosisID0-0">Borderline Glaucoma Open Angle with Borderline Findings Both Eyes</content></td> Attender: MURTAZA Whitehead MD [facility] 08/21/2020 09:27:00 AM EST - 08/21/2020 09:47:00 AM ES T Borderline Glaucoma Open Angle with Borderline Findings Both Eyes [place] (Sameer Luciano MD [facility]) Borderline Glaucoma Open Angle with Bord ashu Findings Both Eyes Outpatient Attender: RIYA JACOME INDEPENDENT DISTRIBUTOR Physical Therapy 07/18/2020 0 8:45:00 AM EST [facility] ([facility]) Outpatient Referrer: Kemar Nguyen NP SJP.JS-SJP.JS 020 12:00:00 AM EST - 06/15/2020 10:49:24 AM EST [facility] Outpatient Attender: Kemar Nguyen NP SJDelmar.JS-SJP.JS 020 12:00:00 AM EST - 05/22/2020 08:51:37 AM EST [facility] Outpatient Attender: Nik Delgado MD Physical Therapy 05/10/2020 0 8:30:00 AM EDT [facility] ([facility]) Outpatient Attender: Julianne CLEVELAND PA-C Physical Therapy 04/19/2020 01:15:00 PM EDT [facility] ([facility]) Outpatient Attender: Nik Delgado MD Physical Therapy 04/10/2020 1 0:45:00 AM EDT [facility] ([facility]) Outpatient Attender: Jimmy Romero/Neal/Corwin/Lux cochran 04/02/2020 11:00:00 AM EDT [facility] ([facility]) Outpatient Attender: Radha HOOD Physical Therapy 08:30:00 AM EDT [facility] ([facility]) OFFICE OUTPATIENT NEW 30 MINUTES Attender: Nik Delgado MD Physic al Therapy 03/08/2020 08:30:00 AM EDT [facility] ([facility]) Outpatient<td ID="encounterTypeDescripti onID2">8 Month Follow-Up</td><td>Murtaza Rueda DO</td><td>Sameer Alvarez MD [facility]</td><td>02/17/2020</td><td>8:12AM</td><td>9:10AM</td><td><content ID="encounterDiagnosisID2-0">Cataract Senile Nuclear</content>, <content ID="encounterDiagnosisID2-1">Corneal Pannus</content>, <content ID="encounterDiagnosisID2-2">Dry Eye Syndrome</content>, <content ID="encounterDiagnosisID2-3">Taking Medication For Diabetes Long-term Use of Oral Hypoglycemics</content>, <content ID="encounterDiagnosisID2-4">Borderline Glaucoma Open Angle with Borderline Findings Both Eyes</content>, <content ID="encounterDiagnosisID2-5">Diabetes Mellitus Type 2 Without Complication</content></td> Attender: MURTAZA Kasper MD [facility] 02/17/2020 08:12:00 AM EDT - 02/17/2020 09:10:00 AM ED T Cataract Senile NuclearDiabetes Mellitus Type 2 Without ComplicationBorderline Glaucoma Open Angle with Borderline Findings Both EyesTaking Medication For Diabetes Long-term Use of Oral HypoglycemicsDry Eye SyndromeCorneal Pannus [place] (Sameer Luciano MD [facility]) Cataract Senile Nuclear Diabetes Mellitus Type 2 Without Complic ation Borderline Glaucoma Open Angle with Bord ashu Findings Both Eyes Taking Medication For Diabetes Long-term Use of Oral Hypoglycemics Dry Eye Syndrome Corneal Pannus Outpatient<td ID="encounterTypeDescripti onID4">TESTING - VISUAL FIELD & OCT</td><td>Murtaza Rueda DO</td><td>Sameer Alvarez MD [facility]</td><td>02/06/2020</td><td>9:23AM</td><td>9:41AM</td><td><content ID="encounterDiagnosisID4-0">Borderline Glaucoma Open Angle with Borderline Findings Both Eyes</content></td> Attender: MURTAZA Whitehead MD [facility] 02/06/2020 09:23:00 AM EDT - 02/06/2020 09:41:00 AM ED T Borderline Glaucoma Open Angle with Borderline Findings Both Eyes [place] (Sameer Luciano MD [facility]) Borderline Glaucoma Open Angle with Bord ashu Findings Both Eyes Outpatient<td ID="encounterTypeDescripti onID3">OCT DISC</td><td></td><td>Sameer Alvarez MD [facility]</td><td>02/06/2020</td><td>9:23AM</td><td>10:41AM</td><td></td> Sameer Alvarez MD [facility] 02/06/2020 09:23:00 AM EDT - 02/06/2020 10:41:00 AM EDT [place] (Sameer Luciano MD [facility]) Outpatient Attender: RIYA JACOME NP Physical Therapy 01/20/2020 0 8:45:00 AM EDT [facility] ([facility] Outpatient Attender: Priyanka Romero/Neal/Stas carvajal/Rachelle 12/28/2019 10:00:00 AM EDT [facility] ([facility], ) [address] [address] 11/15/2019 12:00:00 AM EDT eCW1 ([facility]) Outpatient Attender: RIYA JACOME NP Physical Therapy 11/02/2019 0 8:45:00 AM EDT [facility] ([facility] Outpatient Attender: Kemar Nguyen NP SJP.JS-SJP.JS 09/27/2019 12 :00:00 AM EDT [address] [address] 09/07/2019 12:00:00 AM EST eCW1 ([facility]) [address] [address] 08/23/2019 12:00:00 AM EST eCW1 ([facility]) Outpatient Attender: Michelle Delgado MD Physical Therapy 08/02 02:45:00 PM EST [facility] ([facility] Medications Medication Brand Name Start Date Product Form Dose Route Admi nistrative Instructions Pharmacy Instructions Status Indications Reaction Description Data Source(s) magnesium citrate 58.2 MG/ML Oral Solution Magnesium Citrate 06/27/2020 12:00:00 AM EST active [facility] ([facility]) Suprep Bowel Prep Kit Suprep Bowel Prep Kit 06/27/2020 12:00:00 AM EST active [facility] ([facility]) telmisartan 80 MG Oral Tablet Telmisartan ORAL act madonna [facility] ([facility] Accu-Chek Fastclix Lancets 01/23/2020 12:00:00 AM EDT active [facility] ([facility]) Accu-Chek Multiclix Lancets 01/20/2020 12:00:00 AM EDT completed [facility] ([facility]) Accu-Chek Guide 01/20/2020 12:00:00 AM EDT ac tive [facility] ([facility]) Accu-Chek Guide 01/20/2020 12:00:00 AM EDT ac tive [facility] ([facility] ) Accu-Chek Softclix Lancets 01/20/2020 12:00:00 AM EDT completed [facility] ([facility] ) Insurance Providers Payer name Policy type / Coverage type Policy ID Covered green party ID Covered green party's relationship to guevara Policy Guevara Plan Information UMR [facility] [id number] SP [id number] [employer] [place] Other 0 Self 0 UMR [id number] [place] [id number] UMR O [id number] S [id number] UMR O [id number] S [id number] UMR O [id number] S [id number] UMR [facility] [id number] SP [id number] UMR [id number] [place] [id number] [employer] [id number] [place] [id number] [employer] [place] Other 0 Self 0 Umr (pr) Commercial [id number] Self [id number] Umr Commercial [id number] Self [id number] [employer] Medigap Part B [id number] Self [id number] ANSI-Commercial [id number] Umr (pr) Commercial [id number] Self [id number] ANSI-Commercial [id number] UMR [facility] [id number] SP [id number] Umr (pr) Commercial Self Umr (pr) Commercial Self ANSI-Commercial [id number] Umr Commercial Self Umr (pr) Commercial Self ANSI-Commercial [id number] Umr (pr) Commercial Self Umr (pr) Commercial Self [id number] [employer] [id number] SP [id number] [employer] Pos Commercial [id number] Self [id number] Ghi Emblem Commercial [id number] Self [id number] [employer] (HMO) [id number] Se lf [id number] [employer] (HMO) [id number] Se lf [id number] [employer] (HMO) [id number] Se lf [id number] [employer] [id number] SP [id number] [employer] (HMO) [id number] Se lf [id number] [employer] PPO O [id number] O [id number] [employer] [id number] SP [id number] Problems, Conditions, and Diagnoses Code Display Name Description Problem Type Effective Dates Data Source(s) 48305295 Essential hypertension Essential hypertension Problem 03/08/2020 12:00:00 AM EDT [facility] ([facility] 089078809 Pure hypercholesterolemia Pure hypercholesterolemia Pr oblem 03/08/2020 12:00:00 AM EDT [facility] ([facility] ) I25.810 Atherosclerosis of coronary artery bypass graft(s) without angina pectoris Atherosclerosis of coronary artery bypas Diagnosis 06/15/2020 07:13:49 AM EST [facility] I10 Essential (primary) hypertension Essential (primary) h ypertension Diagnosis 05/22/2020 08:31:56 AM EST [facility] E78.5 Hyperlipidemia, unspecified Hyperlipidemia, unspecifie d Diagnosis 05/22/2020 08:31:56 AM EST [facility] Surgeries/Procedures Procedure Description Date Indications Data Source(s) Scodi, optic nerve with interpretation and report Scod i, optic nerve with interpretation and report 08/21/2020 12:00:00 AM EST SAMRA Maher (Sameer Luciano MD [facility]) Visual Field Visual Field 08/21/2020 12:00:00 AM EST Sandra ESPOSITO (Sameer Luciano MD [facility]) ARTHROCENTESIS ASPIR&/INJECTION SMALL JT/BURSA 020 12:00:00 AM EDT [facility] ([facility] RADEX HAND MINIMUM 3 VIEWS 03/13/2020 12:00:00 AM EDT [facility] ([facility] ) X-Ray Hip Unilateral With Pelvis 2-3 Views 03/08/2020 12:00:00 AM EDT [facility] ([facility]) Intermediate Eye Exam Established Patient Intermediate Eye Exam Established Patient 02/17/2020 12:00:00 AM EDT [place] (Gideon Luciano MD [facility]) Scodi, optic nerve with interpretation and report Scod i, optic nerve with interpretation and report 02/06/2020 12:00:00 AM EDT SAMRA Maher (Sameer Luciano MD [facility]) Visual Field Visual Field 02/06/2020 12:00:00 AM EDT Sandra ESPOSITO (Sameer Luciano MD [facility]) Diabetic Foot Exam 01/20/2020 12:00:00 AM EDT [facility] ([facility]) Results ID Date Data Source [id number] 08/30/2020 11:00:00 AM EST [facility] Name Value Range Interpretation Code Description Data Veronica rce(s) Supporting Document(s) SARS coronavirus 2 RNA Not Detected [facility] This lab was ordered by [facility] and reported by [facility]. ID Date Data Source [id number] 08/23/2020 02:56:00 PM EST [facility] Name Value Range Interpretation Code Description Data Veronica rce(s) Supporting Document(s) SARS-CoV-2 RNA (specific gene not known or reporting a single result based on a combination of tests 2018 nCoV Real-Time RT-PCR: NEGATIVE [facility] This lab was ordered by [facility] and reported by [facility]. ID Date Data Source [id number] 08/26/2020 11:08:25 PM [facility] Name Value Range Interpretation Code Description Data [facility] rce(s) Supporting Document(s) Specimen source [Identifier] of Unspecified specimen [facility] SARS-CoV-2 RNA (specific gene not known or reporting a single result based on a combination of tests) 2018 nCoV Real-Time RT-PCR: NEGATIVE [facility] Assay Performed [facility] This test method was designed to detect the causative agent of COVID-19. It was developed and its performance characteristics were determined by the Dept. of Pathology, [facility]. It has been approved by the [facility] Department of Health but has not been authorized by the U.[place] Food and Drug Administration. Negative results do not preclude SARS-CoV-2 infection and should not be used as the sole basis for patient management decisions. Patients first test for [facility] Patient employed in healthcare setting [facility] Patient has symptoms related to [facility] When did you start to experience these symptoms [Date and time] [Phen X] [facility] Patient was hospitalized because of this condition [facility] patient was admitted to ICU for [facility] Patient resides in a congregate care setting [facility] status [facility] ID Date Data Source [id number] 08/21/2020 10:21:00 AM EST [facility] ([facility]) Name Value Range Interpretation Code Description Data Veronica rce(s) Supporting Document(s) Creatinine [Mass/volume] in Urine 122.0 mg/dL [facility] ([facility]) Microalbumin/Creatinine [Mass Ratio] in Urine 16.0 MCG/MG 0.0-30.0 [facility] ([facility]) THE [employer] STATES THAT MICROALBUMINURIA IS PRESENT IF THE MICROALBUMIN/CREATININE RATIO EXCEEDS 30 MCG/MG. THE THRESHOLD FOR CLINICAL ALBUMINURIA IS REACHED AT 300 MCG/MG. THE CLASSIFICATION OF A PATIENT SHOULD BE BASED UPON AT LEAST 2 OF 3 ABNORMAL RESULTS ON SPECIMENS COLLECTED WITHIN A 3 TO 6 MONTH TIME FRAME. Microalbumin [Mass/volume] in Urine 19.6 mg/L [facility] ([facility] ID Date Data Source [id number] 08/21/2020 10:18:00 AM EST [facility] ([facility]) Name Value Range Interpretation Code Description Data Veronica rce(s) Supporting Document(s) Glucose, Fasting 211 mg/dL 70-100 [facility] ([facility]) Blood Urea Nitrogen 10 mg/dL 7-18 [facility] ([facility]) Glomerular Filtration Rate Laboratory test result [facility] ([facility]) <content>Units are mL/min/1.73 m2</content>
<content></content>
<content>Chronic Kidney Disease Staging per NKF:</content>
<content></content>
<content>Stage I & II GFR >=60 Normal to Mildly Decreased</content>
<content>Stage III GFR 30- 59 Moderately Decreased</content>
<content>Stage IV GFR 15-29 Severely Decreased</content>
<content>Stage V GFR <15 Very Little GFR Left</content>
<content>ESRD GFR <15 on ARMORED CAR GUARD AND DRIVER</content>
<content></content> Creatinine For GFR 0.89 mg/dL 0.70-1.30 [facility] ([facility] ) Potassium Serum 4.0 meq/L 3.5-5.1 [facility] ([facility] ) Sodium Level 140 meq/L 136-145 [facility] ([facility] ) Carbon Dioxide Level 30 meq/L 21-32 [facility] ([facility]) Anion Gap 5 meq/L 8-16 [facility] ([facility]) Chloride Level 105 meq/L 98-107 [facility] Ast/Sgot 89 U/L 7-37 [facility] ([facility]) Alt/SGPT 110 U/L 12-78 [facility] ([facility] Calcium Level 9.3 mg/dL 8.5-10.1 [facility]) Alkaline Phosphatase 136 U/L 45-117 [facility] ([facility] Total Protein 7.5 GM/DL 6.4-8.2 [facility] Bilirubin,Total 0.5 mg/dL 0.2-1.0 [facility] ([facility]) Albumin 3.5 GM/DL 3.2-5.2 [facility] ([facility]) Albumin/Globulin Ratio 0.9 [facility] ([facility]) ID Date Data Source [id number] 08/21/2020 10:18:00 AM EST [facility] ([facility]) Name Value Range Interpretation Code Description Data Veronica rce(s) Supporting Document(s) Cholesterol Level 121 mg/dL [facility] ([facility]) Triglycerides Level 173 mg/dL [facility] ([facility]) HDL Cholesterol 39 mg/dL [facility] ([facility]) LDL Cholesterol 47 mg/dL [facility] ([facility]) Cholesterol Risk Ratio 3.102 [facility] ([facility]) Non-HDL-C 82 mg/dL [facility] ([facility]) ID Date Data Source [id number] 08/21/2020 10:18:00 AM EST [facility] ([facility]) Name Value Range Interpretation Code Description Data Veronica rce(s) Supporting Document(s) Calcidiol [Mass/volume] in Serum or Plasma 26.2 ng/mL 30.0-100.0 [facility] ([facility]) ID Date Data Source [id number] 07/18/2020 09:40:00 AM EST [facility] ([facility]) Name Value Range Interpretation Code Description Data Veronica rce(s) Supporting Document(s) Hemoglobin A1c/Hemoglobin.total in Blood 7.5 [facility] ([facility]) Glucose [Mass/volume] in Serum or Plasma 157 [facility] ([facility]) ID Date Data Source [id number] 05/24/2020 10:41:00 AM EST [facility] ([facility] ) Name Value Range Interpretation Code Description Data Veronica rce(s) Supporting Document(s) [id number] [Mass/volume] in Serum or Plasma 2.2 ng/mL Normal (applies to non-numeric results) [facility] ([facility], ) THE AFP ASSAY IS PERFORMED ON THE ViSSeeR BY CHEMILUMINESCENCE AND SHOULD NOT BE COMPARED INTERCHANGEABLY WITH OTHER METHODS. IT SHOULD NOT BE USED ALONE A SCREENING TEST OR DIAGNOSIS FOR THE PRESENCE OR ABSENCE OF MALIGNANT DISEASE. THESE RESULTS ARE NOT INTERPRETABLE IN FEMALES. PREDICTIONS OF DISEASE RECURRENCE SHOULD NOT BE BASED SOLELY ON VALUES OBTAINED FROM SERIAL PATIENT SERUM VALUES. ID Date Data Source [id number] 05/24/2020 10:41:00 AM EST [facility]) Name Value Range Interpretation Code Description Data Veronica rce(s) Supporting Document(s) Hemoglobin 15.9 g/dL 13.5-17.5 Normal (applies to non-numeric resul ts) [facility] ([facility]) Red Blood Count 5.20 10 4.30-6.10 Normal (applies to non-numeric results) [facility] ([facility]) White Blood Count 5.2 10 4.0-10.0 Normal (applies to non-numeri c results) [facility] ([facility]) Mean Corpuscular Hemoglobin 30.6 pg 27.0-33.0 Norm al (applies to non-numeric results) [facility] ([facility]) Mean Corpuscular Volume 94.2 fl 80.0-96.0 Normal ( applies to non-numeric results) [facility] ([facility]) Hematocrit 49.0 % 42.0-52.0 Normal (applies to non-numeric resul ts) [facility] ([facility]) Mean Corpuscular HGB Conc 32.4 g/dL 32.0-36.5 Normal (applies to non-numeric results) [facility] ([facility]) Platelet Count, Automated 131 10 150-450 Below low normal [facility] ([facility]) Red Cell Distribution Width 13.5 % 11.5-14.5 Norm al (applies to non-numeric results) [facility]) Nucleated Red Blood Cell % 0.0 % 0-0 Normal (applies to n on-numeric results) [facility]) 05/24/20 (May 24) 12:33 PM PRIYANKA Maynard. Mary. Will discuss with patient at 06/05/20 office visit. ID Date Data Source [id number] 05/24/2020 10:41:00 AM EST [facility] ([facility]) Name Value Range Interpretation Code Description Data Veronica rce(s) Supporting Document(s) Glucose, Fasting 117 mg/dL 70-100 Above high normal [facility] Glomerular Filtration Rate Laboratory test result Normal (applies to non- numeric results) [facility] ([facility]) <content>Units are mL/min/1.73 m2</content>
<content></content>
<content>Chronic Kidney Disease Staging per NKF:</content>
<content></content>
<content>Stage I & II GFR >=60 Normal to Mildly Decreased</content>
<content>Stage III GFR 30- 59 Moderately Decreased</content>
<content>Stage IV GFR 15-29 Severely Decreased</content>
<content>Stage V GFR <15 Very Little GFR Left</content>
<content>ESRD GFR <15 on ARMORED CAR GUARD AND DRIVER</content>
<content></content> Creatinine For GFR 0.93 mg/dL 0.70-1.30 Normal (applies to non -numeric results) [facility] ([facility], ) Blood Urea Nitrogen 17 mg/dL 7-18 Normal (applies to non-nume beatrice results) [facility] ([facility]) Sodium Level 140 meq/L 136-145 Normal (applies to non-numeric res ults) [facility] ([facility]) Potassium Serum 4.0 meq/L 3.5-5.1 Normal (applies to non-numeric results) [facility] ([facility]) Chloride Level 103 meq/L 98-107 Normal (applies to non-numeric r esults) [facility] ([facility]) Anion Gap 8 meq/L 8-16 Normal (applies to non-numeric resul ts) [facility] ([facility]) Carbon Dioxide Level 29 meq/L 21-32 Normal (applies to non-num katrin results) [facility] ([facility], ) Ast/Sgot 65 U/L 7-37 Above high normal [facility] ([facility], ) Calcium Level 9.3 mg/dL 8.5-10.1 Normal (applies to non-numeric re sults) [facility] ([facility], ) Alt/SGPT 133 U/L 12-78 Above high normal [facility] ([facility], ) Total Protein 7.8 GM/DL 6.4-8.2 Normal (applies to non-numeric re sults) [facility] ([facility], ) Bilirubin,Total 0.6 mg/dL 0.2-1.0 Normal (applies to non-numeric results) [facility] ([facility], ) Alkaline Phosphatase 121 U/L 45-117 Above high normal [facility] ([facility], ) Albumin 3.8 GM/DL 3.2-5.2 Normal (applies to non-numeric resul ts) [facility] ([facility], ) Albumin/Globulin Ratio 1.0 Normal (applies to non-n umeric results) [facility] ([facility], ) 05/24/20 (Thr May 24) 12:32 PM PRIYANKA Maynard. Stable. Will discuss with patient at 06/05/20 office visit. ID Date Data Source [id number] 04/26/2020 12:00:00 AM EDT [facility] Imaging Nik Delgado MD Patient Name: ISABELLE DE [id number] [facility] Date of : 1960[place] [address] Date of Exam: 04/26/2020#: Fax: [phone] EXAM: ARTHROCENTESIS RTHIP-ASPIR / INJ STEROID/PAIN MEDSRIGHT HIP INJECTION:The procedure was performed by SORAIDA Feliz under the generalsupervision of Dr. Roman.The benefits and risks including, but not limited to pain, infection,bleeding, and anaphylaxis were explained to the patient and informedconsent was obtained.The right femoral neck was localized using fluoroscopic guidance. The skinwas prepped and draped in a sterile fashion. 1% Lidocaine was used as alocal anesthetic. Using fluoroscopic guidance, a #22 gauge spinal needlewas inserted and advanced to the femoral neck. 0.5 cc of Omnipaque 300 wasinjected to verify placement. 6 cc of a solution containing 5 cc of 1%Lidocaine and 1 cc of Kenalog 40 mg was injected into the joint space. Theneedle was then removed.The patient tolerated the procedure well and there we re no immediatecomplications.Fluoroscopy time was 2 seconds at 3 pulses/second. This is equal to .5seconds continuous fluoroscopy time which is a 75% reduction in radiation.RENNY Mahmood/Flora coleman for referring ISABELLE DE LUNA to our office.Electronically Signed - KEVEN ROMAN MD 04/27/20 13:23 Name Value Range Interpretation Code Description Data Veronica rce(s) Supporting Document(s) ID Date Data Source [id number] 04/26/2020 12:00:00 AM EDT [facility] Imaging Nik Delgado MD Patient Name: ISABELLE DE [id number] [facility] Date [facility] 1960[facility] [place] [address] Date of Exam: 04/26/2020#: Fax: [phone] EXAM: ARTHROCENTESIS RTHIP-ASPIR / INJ STEROID/PAIN MEDSRIGHT HIP INJECTION:The procedure was performed by SORAIDA Feliz under the generalsupervision of Dr. Roman.The benefits and risks including, but not limited to pain, infection,bleeding, and anaphylaxis were explained to the patient and informedconsent was obtained.The right femoral neck was localized using fluoroscopic guidance. The skinwas prepped and draped in a sterile fashion. 1% Lidocaine was used as alocal anesthetic. Using fluoroscopic guidance, a #22 gauge spinal needlewas inserted and advanced to the femoral neck. 0.5 cc of Omnipaque 300 wasinjected to verify placement. 6 cc of a solution containing 5 cc of 1%Lidocaine and 1 cc of Kenalog 40 mg was injected into the joint space. Theneedle was then removed.The patient tolerated the procedure well and there we re no immediatecomplications.Fluoroscopy time was 2 seconds at 3 pulses/second. This is equal to .5seconds continuous fluoroscopy time which is a 75% reduction in radiation.RENNY Mahmood/Flora coleman for referring ISABELLE DE LUNA to our office.Electronically Signed - KEVEN ROMAN MD 04/27/20 13:23 Name Value Range Interpretation Code Description Data Veronica rce(s) Supporting Document(s) ID Date Data Source [id number] 04/24/2020 09:16:00 AM EDT [facility] ([facility] ) Name Value Range Interpretation Code Description Data Veronica rce(s) Supporting Document(s) C reactive protein [Mass/volume] in Serum or Plasma by High sensitivity method Laboratory test result 0.00-0.30 [facility] ([facility]) ID Date Data Source [id number] 03/28/2020 12:00:00 AM EDT [facility] Nik Delgado MD Patient Name: ISABELLE DE LUNA[address] [facility] Date of : 1960[place] [address] Date of Exam: 03/28/2020#: Fax: [phone] EXAM: MRI HIP RIGHT WITHOUT CONTRASTCLINICAL INFORMATION: Chronic pain. No history of trauma.There are no prior right hip MRI's for comparison.3T multiplanar MRI imaging of the right hip was obtained using varioussequences.There is bilateral asymmetric hip joint space narrowing, right greater thanleft with slight right femoral head marginal osteophytosis and minimal leftfemoral head marginal osteophytosis. Multi-focal subchondral T2hype rsignal is seen in the right femoral head and in the right acetabulum,particularly anteriorly. There is no evidence of a joint effusion. Thereis no abnormal signal seen in the trochanteric tendinobursal region ofeither hip. There is no evidence of a mass or mass effect. Chronicsclerotic type degenerative changes are seen in the sacroiliac joints.There is no abnormal SI joint fluid. The signal and morphology throughoutthe imaged musculature is within normal limits.Small [id number] magnified dedicated imaging of the right hip in allthree planes show no evidence of a definite labral signal abnor mality.IMPRESSION:1. 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 If labral pathology is of clinical concern, then I would suggestfollowup with hip MRI arthrography if clinically relevant.3. Bilateral SI joint DJD. Correlate clinically with additional plainfilm imaging if necessary.4. Other findings as described above.Accredited by the [employer] in MR.Shelbi HammondLilli Lucas, DALIA/jmcThank you for referring ISABELLE DE LUNA to our office.Electronically Signed - SHELBI Hammond DO LAURA 03/29/20 14:09 Name Value Range Interpretation Code Description Data Veronica rce(s) Supporting Document(s) ID Date Data Source [id number] 03/13/2020 10:26:00 AM EDT [facility] ([facility]) Name Value Range Interpretation Code Description Data Veronica rce(s) Supporting Document(s) HLA-B27 related Ag [Presence] Laboratory test result [facility] ([facility]) HLA-B*27 Negative B27 allele interpretation for all loci based on IMGT/HLA database version 3.38 This test was developed and its performance characteristics determined by [employer]. It has not been cleared or approved by the Food and Drug Administration. [facility] CLIA ID Number [id number] . This test was performed using PCR (Polymerase Chain Reaction)/SSOP (Sequence Specific Oligonucleotide Probes) technique. SBT (Sequence Based Typing) and/or SSP (Sequence Specific Primers) may be used as supplemental methods when necessary. Please contact [facility] Customer Service at if you have any questions. . Director of [facility] Laboratory Dr Danial Yarbrough, PhD Erythrocyte sedimentation rate by Westergren method 3 mm/hr 0-20 [facility] ([facility]) C reactive protein [Mass/volume] in Serum or Plasma by High sensitivity method 0.32 mg/dL 0.00-0.30 [facility] ([facility]) ID Date Data Source [id number] 03/13/2020 10:26:00 AM EDT [facility] ([facility]) Name Value Range Interpretation Code Description Data Veronica rce(s) Supporting Document(s) Antinuclear Antibodies Direct Laboratory test result [facility] ([facility]) Performed at: [address] [place], [place] [address] [place], [place] [id number] Lock Technician: Danial Yarbrough PhD, Phone: [phone] Performed at: [facility] [address] [id number] Lock Technician: Keshia Wooten MD, Phone: [phone] ID Date Data Source [id number] 03/13/2020 10:26:[address] [facility]) Name Value Range Interpretation Code Description Data Veronica rce(s) Supporting Document(s) Rheumatoid factor [Units/volume] in Serum or Plasma Laboratory test result [facility]) ID Date Data Source [id number] 01/20/2020 09:05:[address] [facility]) Name Value Range Interpretation Code Description Data Veronica rce(s) Supporting Document(s) Glucose [Mass/volume] in Serum or Plasma [address] [facility]) Hemoglobin A1c/Hemoglobin.total in Blood 7.1 [facility]) ID Date Data Source [id number] 12/12/2019 08:28:00 AM EDT [facility]) Name Value Range Interpretation Code Description Data Veronica rce(s) Supporting Document(s) Dwglp-2-Xmblpufojyb [Mass/volume] in Serum or Plasma 2.4 ng/mL Normal (applies to non-numeric results) [facility], ) THE AFP ASSAY IS PERFORMED ON THE [employer] BY CHEMILUMINESCENCE AND SHOULD NOT BE COMPARED INTERCHANGEABLY WITH OTHER METHODS. IT SHOULD NOT BE USED ALONE A SCREENING TEST OR DIAGNOSIS FOR THE PRESENCE OR ABSENCE OF MALIGNANT DISEASE. THESE RESULTS ARE NOT INTERPRETABLE IN FEMALES. PREDICTIONS OF DISEASE RECURRENCE SHOULD NOT BE BASED SOLELY ON VALUES OBTAINED FROM SERIAL PATIENT SERUM VALUES. ID Date Data Source [id number] 12/12/2019 08:28:00 AM EDT [facility]) Name Value Range Interpretation Code Description Data Veronica rce(s) Supporting Document(s) Blood Urea Nitrogen 12 mg/dL 7-18 Normal (applies to non-nume beatrice results) [facility]) Glucose, Fasting 122 mg/dL 70-100 Above high normal [facility]) Creatinine For GFR 0.89 mg/dL 0.70-1.30 Normal (applies to non -numeric results) [facility]) Glomerular Filtration Rate Laboratory test result Normal (applies to non- numeric results) [facility]) <content>Units are mL/min/1.73 m2</content>
<content></content>
<content>Chronic Kidney Disease Staging per NKF:</content>
<content></content>
<content>Stage I & II GFR >=60 Normal to Mildly Decreased</content>
<content>Stage III GFR 30- 59 Moderately Decreased</content>
<content>Stage IV GFR 15-29 Severely Decreased</content>
<content>Stage V GFR <15 Very Little GFR Left</content>
<content>ESRD GFR <15 on ARMORED CAR GUARD AND DRIVER</content>
<content></content> Potassium Serum 4.1 meq/L 3.5-5.1 Normal (applies to non-numeric results) [facility] ([facility], ) Sodium Level 144 meq/L 136-145 Normal (applies to non-numeric res ults) [facility] ([facility], ) Chloride Level 109 meq/L 98-107 Above high normal [facility] E[facility] ([facility], ) Carbon Dioxide Level 26 meq/L 21-32 Normal (applies to non-num katrin results) [facility] ([facility], ) Anion Gap 9 meq/L 8-16 Normal (applies to non-numeric resul ts) [facility] ([facility], ) Ast/Sgot 77 U/L 7-37 Above high normal [facility] ([facility], ) Calcium Level 8.8 mg/dL 8.5-10.1 Normal (applies to non-numeric re sults) [facility] ([facility], ) Alt/SGPT 121 U/L 12-78 Above high normal [facility] ([facility], ) Albumin 3.6 GM/DL 3.2-5.2 Normal (applies to non-numeric resul ts) [facility] ([facility], ) Total Protein 7.8 GM/DL 6.4-8.2 Normal (applies to non-numeric re sults) [facility] ([facility], ) Bilirubin,Total 0.7 mg/dL 0.2-1.0 Normal (applies to non-numeric results) [facility] ([facility], ) Alkaline Phosphatase 130 U/L 45-117 Above high normal [facility] ([facility]) Albumin/Globulin Ratio 0.9 Normal (applies to non-n umeric results) [facility] ([facility]) 12/28/19 (ThuDec 27) 10:20 AM PRIYANKA OSUNA Liver enzymes appear to be stable. ID Date Data Source [id number] 12/12/2019 08:28:00 AM EDT [facility] ([facility]) Name Value Range Interpretation Code Description Data Veronica rce(s) Supporting Document(s) White Blood Count 5.1 10 4.0-10.0 Normal (applies to non-numeri c results) [facility] ([facility]) Hematocrit 49.9 % 42.0-52.0 Normal (applies to non-numeric resul ts) [facility] ([facility]) Mean Corpuscular Volume 91.2 fl 80.0-96.0 Normal ( applies to non-numeric results) [facility] ([facility]) Red Blood Count 5.47 10 4.30-6.10 Normal (applies to non-numeric results) [facility] ([facility]) Hemoglobin 16.6 g/dL 13.5-17.5 Normal (applies to non-numeric resul ts) [facility] ([facility]) Red Cell Distribution Width 13.2 % 11.5-14.5 Norm al (applies to non-numeric results) [facility] ([facility]) Mean Corpuscular Hemoglobin 30.3 pg 27.0-33.0 Norm al (applies to non-numeric results) [facility] ([facility]) Mean Corpuscular HGB Conc 33.3 g/dL 32.0-36.5 Normal (applies to non-numeric results) [facility] ([facility]) Nucleated Red Blood Cell % 0.0 % 0-0 Normal (applies to n on-numeric results) [facility] ([facility]) 12/28/19 (ThuDec 27) 10:16 AM PRIYANKA CANELABOBREA Mildly decreased platelets. No acute changes. Platelet Count, Automated 132 10 150-450 Below low normal [facility] ([facility]) ID Date Data Source [id number] 11/02/2019 10:42:00 AM EDT [facility] ([facility]) Name Value Range Interpretation Code Description Data Veronica rce(s) Supporting Document(s) Glucose [Mass/volume] in Serum or Plasma 124 [facility] ([facility]) Hemoglobin A1c/Hemoglobin.total in Blood 7.3 [facility] ([facility]) ID Date Data Source [id number] 08/26/2019 11:42:00 AM EST [facility] ([facility]) Name Value Range Interpretation Code Description Data Veronica rce(s) Supporting Document(s) Hematocrit 49.3 % 42.0-52.0 [facility] ([facility]) White Blood Count 6.4 10 4.0-10.0 [facility]) Red Blood Count 5.41 10 4.30-6.10 [facility] ([facility]) Hemoglobin 16.6 g/dL 13.5-17.5 [facility] ([facility]) Mean Corpuscular Hemoglobin 30.7 pg 27.0-33.0 [facility] ([facility]) Mean Corpuscular Volume 91.1 fl 80.0-96.0 M EDENT ([facility]) Mean Corpuscular HGB Conc 33.7 g/dL 32.0-36.5 [facility] ([facility]) Nucleated Red Blood Cell % 0.0 % 0-0 [facility] ([facility]) Platelet Count, Automated 152 10 150-450 [facility] ([facility]) Red Cell Distribution Width 13.3 % 11.5-14.5 [facility] ([facility]) ID Date Data Source [id number] 08/26/2019 11:42:00 AM EST [facility] ([facility]) Name Value Range Interpretation Code Description Data Veronica rce(s) Supporting Document(s) Triglycerides Level 224 mg/dL [facility] Cholesterol Level 130 mg/dL [facility]) LDL Cholesterol 51 mg/dL [facility] ([facility]) Non-HDL-C 96 mg/dL [facility] HDL Cholesterol 34 mg/dL [facility] ([facility]) Cholesterol Risk Ratio 3.823 [facility] ([facility]) ID Date Data Source [id number] 08/26/2019 11:42:00 AM EST [facility] ([facility]) Name Value Range Interpretation Code Description Data Veronica rce(s) Supporting Document(s) Creatinine, Urine 79.6 mg/dL [facility] ([facility]) Malb Urine Siemens 8.9 mg/L [facility] ([facility]) Jonel/Creat Ratio 11.1 MCG/MG 0.0-30.0 [facility] ([facility]) THE [employer] STATES THAT MICROALBUMINURIA IS PRESENT IF THE MICROALBUMIN/CREATININE RATIO EXCEEDS 30 MCG/MG. THE THRESHOLD FOR CLINICAL ALBUMINURIA IS REACHED AT 300 MCG/MG. THE CLASSIFICATION OF A PATIENT SHOULD BE BASED UPON AT LEAST 2 OF 3 ABNORMAL RESULTS ON SPECIMENS COLLECTED WITHIN A 3 TO 6 MONTH TIME FRAME. ID Date Data Source [id number] 08/26/2019 11:42:00 AM EST [facility] ([facility]) Name Value Range Interpretation Code Description Data [facility] rce(s) Supporting Document(s) Glucose, Fasting 96 mg/dL 70-100 [facility] ([facility]) Creatinine For GFR 0.94 mg/dL 0.70-1.30 [facility] ([facility]) Blood Urea Nitrogen 18 mg/dL 7-18 [facility] ([facility] ) Potassium Serum 3.9 meq/L 3.5-5.1 [facility] ([facility]) Glomerular Filtration Rate Laboratory test result [facility] ([facility]) <content>Units are mL/min/1.73 m2</content>
<content></content>
<content>Chronic Kidney Disease Staging per NKF:</content>
<content></content>
<content>Stage I & II GFR >=60 Normal to Mildly Decreased</content>
<content>Stage III GFR 30- 59 Moderately Decreased</content>
<content>Stage IV GFR 15-29 Severely Decreased</content>
<content>Stage V GFR <15 Very Little GFR Left</content>
<content>ESRD GFR <15 on ARMORED CAR GUARD AND DRIVER</content>
<content></content> Sodium Level 141 meq/L 136-145 [facility] Chloride Level 106 meq/L 98-107 [facility] ([facility]) Carbon Dioxide Level 29 meq/L 21-32 [facility] ([facility]) Anion Gap 6 meq/L 8-16 [facility] ([facility]) Calcium Level 9.0 mg/dL 8.5-10.1 [facility] ([facility]) Alkaline Phosphatase 136 U/L 45-117 [facility] ([facility]) Ast/Sgot 98 U/L 7-37 [facility] ([facility]) Alt/SGPT 166 U/L 12-78 [facility] ([facility]) Albumin 4.0 GM/DL 3.2-5.2 [facility] ([facility]) Total Protein 7.8 GM/DL 6.4-8.2 [facility] ([facility]) Bilirubin,Total 0.7 mg/dL 0.2-1.0 [facility] ([facility] ) Albumin/Globulin Ratio 1.05 1.00-1.93 ME DENT ([facility] ) Procedure Social History Code Duration Value Status Description Data Source(s ) Smoking 08/15/2020 11:00:12 AM EST Ex-smoker (finding) [facility] ed Ex-smoker (finding) [facility] (Sameer Luciano MD [facility]) Smoking 07/18/2020 12:00:00 AM EST Patient is a former smoker completed Patient is a former smoker [facility] ([facility] ) Vital Signs ID Date Data Source UNK Name Value Range Interpretation Code Description Data Source(s) Oxygen saturation in Arterial blood by Pulse oximetry 98 % 98 % [facility] ([facility] ) Body mass index (BMI) [Ratio] 35.2 kg/m2 35.2 k g/m2 [facility] ([facility] ) Body weight 206.38 [lb_av] 206.38 [lb_av] MEDEN T ([facility] ) Body height 64.2 [in_i] 64.2 [in_i] [facility] 5'4.20" Body temperature 96.8 [degF] 96.8 [degF] [facility] ([facility] ) Heart rate 76 /min 76 /min [facility] ([facility]) Diastolic blood pressure 75 mm[Hg] 75 mm[Hg] [facility] ([facility]) Systolic blood pressure 126 mm[Hg] 126 mm[Hg] M EDENT ([facility]) Body surface area Derived from formula 1.97 m2 1.97 m2 [facility] ([facility]) Body weight 92.534 kg 92.534 kg [facility] ([facility]) [place] body weight 130 [lb_av] 130 [lb_av] MED[facility] T ([facility]) Body mass index (BMI) [Ratio] 35.0 kg/m2 35.0 k g/m2 [facility] ([facility]) Body weight 204.00 [lb_av] 204.00 [lb_av] MED[facility] T ([facility]) Body height 64 [in_i] 64 [in_i] [facility] ([facility]) 5'4" Diastolic blood pressure 72 mm[Hg] 72 mm[Hg] [facility] ([facility]) Systolic blood pressure 110 mm[Hg] 110 mm[Hg] [facility] Body temperature 97.8 [degF] 97.8 [degF] [facility] ([facility]) Body temperature 96.9 [degF] 96.9 [degF] [facility] ([facility]) Body surface area Derived from formula 1.96 m2 1.96 m2 [facility] ([facility]) Body weight 91.627 kg 91.627 kg [facility] ([facility]) [place] body weight 130 [lb_av] 130 [lb_av] MED[facility] T ([facility]) Body mass index (BMI) [Ratio] 34.7 kg/m2 34.7 k g/m2 [facility] ([facility]) Body weight 202.00 [lb_av] 202.00 [lb_av] MED[facility] T ([facility]) Body height 64 [in_i] 64 [in_i] [facility] ([facility]) 5'4" Oxygen saturation in Arterial blood by Pulse oximetry 95 % 95 % [facility] ([facility]) Heart rate 69 /min 69 /min [facility] ([facility] ) Diastolic blood pressure 80 mm[Hg] 80 mm[Hg] [facility] Systolic blood pressure 124 mm[Hg] 124 mm[Hg] [facility] ([facility], ) Body mass index (BMI) [Ratio] 33.3 kg/m2 33.3 k g/m2 [facility] ([facility]) Body weight 200.00 [lb_av] 200.00 [lb_av] MEDEN T ([facility]) Body height 65 [in_i] 65 [in_i] [facility] ([facility]) 5'5" Body temperature 96.8 [degF] 96.8 [degF] [facility] Oxygen saturation in Arterial blood by Pulse oximetry 96 % 96 % [facility] Body mass index (BMI) [Ratio] 34.3 kg/m2 34.3 k g/m2 [facility] ([facility]) Body weight 201.31 [lb_av] 201.31 [lb_av] [facility] T ([facility]) Body height 64.2 [in_i] 64.2 [in_i] [facility] 5'4.20" Heart rate 75 /min 75 /min [facility] Diastolic blood pressure 74 mm[Hg] 74 mm[Hg] [facility] ([facility]) Systolic blood pressure 114 mm[Hg] 114 mm[Hg] [facility] ([facility]) Body weight 91.627 kg 91.627 kg [facility] ([facility], ) Body mass index (BMI) [Ratio] 34.7 kg/m2 34.7 k g/m2 [facility] ([facility], ) Body weight 202.00 [lb_av] 202.00 [lb_av] MEDEN T ([facility], ) Body height 64 [in_i] 64 [in_i] [facility] ([facility], ) 5'4" Diastolic blood pressure 80 mm[Hg] 80 mm[Hg] [facility] ([facility], ) Systolic blood pressure 120 mm[Hg] 120 mm[Hg] [facility] ([facility]) Body mass index (BMI) [Ratio] 35.87 kg/m2 35.87 kg/m2 eCW1 ([facility]) Body height 64 [in_us] 64 [in_us] eCW1 ([facility]) Body weight Measured 209 [lb_av] 209 [lb_av] eC W1 ([facility]) Oxygen saturation in Arterial blood by Pulse oximetry 94 % 94 % [facility] ([facility] ) Body mass index (BMI) [Ratio] 34.8 kg/m2 34.8 k g/m2 [facility] ([facility] ) Body weight 204.31 [lb_av] 204.31 [lb_av] YANEN T ([facility]) Body height 64.2 [in_i] 64.2 [in_i] [facility] ([facility] ) 5'4.20" Heart rate 93 /min 93 /min [facility] ([facility]) Diastolic blood pressure 84 mm[Hg] 84 mm[Hg] [facility] ([facility] ) Systolic blood pressure 144 mm[Hg] 144 mm[Hg] Narciso MOSQUEDA ([facility] )
[2020-09-04] MEDS ORDERED: propofoL 500 MG/50 ML VIAL As Ordered ONE (09:42)
[2020-09-04] MEDS ORDERED: LIDOCAINE 2% 100MG/5ML SDV (FOR ANES.) As Ordered ONE (09:42)
--- NOTE | 2020-09-04 09:55 | ROOR ---
Patient Name: Ignacio Live Procedure Date: 09/04/2020 9:35 AM Date of : 1960 Age: 60 Room: [facility] Gender: Male Note Status: Finalized Procedure: Colonoscopy Indications: Colon cancer screening in patient with 1st-degree relative having advanced adenoma of the colon before age 60, Screening patient at increased risk: Family history of 1st-degree relative with colorectal cancer at age 60 years (or older) Providers: Sameer BUSH MD Referring MD: ZOE COELHO MD Requesting Provider: Medicines: Monitored Anesthesia Care Complications: No immediate complications. Procedure: Pre-Anesthesia Assessment: - The heart rate, respiratory rate, oxygen saturations, blood pressure, adequacy of pulmonary ventilation, and response to care were monitored throughout the procedure. The Colonoscope was introduced through the anus and advanced to the terminal ileum, with identification of the appendiceal orifice and IC valve. The colonoscopy was performed without difficulty. The patient tolerated the procedure well. The quality of the bowel preparation was good. Findings: The perianal and digital rectal examinations were normal. Internal hemorrhoids were found during retroflexion. The hemorrhoids were moderate. The entire examined colon appeared normal on direct and retroflexion views. Impression: - Internal hemorrhoids. - The entire examined colon is normal on direct and retroflexion views. - No specimens collected. Recommendation: - Repeat colonoscopy in 5 years for screening purposes. Procedure Code(s): --- Professional --- 28498, Colonoscopy, flexible; diagnostic, including collection of specimen(s) by brushing or washing, when performed (separate procedure) Diagnosis Code(s): --- Professional --- K64.8, Other hemorrhoids Z80.0, Family history of malignant neoplasm of digestive organs Z83.71, Family history of colonic polyps CPT copyright 2019 [employer]. All rights reserved. The codes documented in this report are preliminary and upon obgyn specialist review may be revised to meet current compliance requirements. Sameer Bush MD Sameer BUSH MD 09/04/2020 9:55:29 AM Electronically signed by Sameer BUSH MD Number of Addenda: 0 Note Initiated On: 09/04/2020 9:35 AM Estimated Blood Loss: Estimated blood loss: none.
[2020-09-04 10:15] VITALS: BP 133/82
== END 2020-09-04 10:24 | disposition home or self-care (01) ==
LOC: M OPP 07:24
PROVIDERS: ATTEND Internal Medicine Gastroenterology
DX: Z12.11 Encounter for screening for malignant neoplasm of colon (principal); Z80.0 Family history of malignant neoplasm of digestive organs; Z83.71 Family history of colonic polyps; K64.8 Other hemorrhoids; I25.10 Atherosclerotic heart disease of native coronary artery without angina pectoris; I11.0 Hypertensive heart disease with heart failure; I50.9 Heart failure, unspecified; E78.5 Hyperlipidemia, unspecified; E11.9 Type 2 diabetes mellitus without complications; M10.9 Gout, unspecified; K76.0 Fatty (change of) liver, not elsewhere classified; R12 Heartburn; M19.90 Unspecified osteoarthritis, unspecified site; G47.30 Sleep apnea, unspecified; Z88.8 Allergy status to other drugs, medicaments and biological substances; Z91.040 Latex allergy status; Z91.09 Other allergy status, other than to drugs and biological substances; Z79.82 Long term (current) use of aspirin; Z79.899 Other long term (current) drug therapy; Z82.49 Family history of ischemic heart disease and other diseases of the circulatory system; Z80.42 Family history of malignant neoplasm of prostate; Z80.1 Family history of malignant neoplasm of trachea, bronchus and lung

== ENCOUNTER → 2020-09-06 | Outpatient (CLI) | payer OTHER ==
[~2020-09-06] MED LIST changes: -NS 1,000 ML IV ONE
[2020-09-06 09:19] LABS: HEMATOCRIT 46.6 % (42.0-52.0); HEMOGLOBIN 15.1 g/dl (13.5-17.5); MEAN CORPUSCULAR HEMOGLOBIN 29.4 pg (27.0-33.0); MEAN CORPUSCULAR HGB CONC 32.4 g/dl (32.0-36.5); MEAN CORPUSCULAR VOLUME 90.7 fl (80.0-96.0); PLATELET COUNT, AUTOMATED 134 10^3/uL (150-450); RED BLOOD COUNT 5.14 10^6/uL (4.30-6.10); WHITE BLOOD COUNT 4.9 10^3/uL (4.0-10.0)
[2020-09-06 09:51] LABS: ALBUMIN 3.8 GM/DL (3.2-5.2); ALT/SGPT 160 U/L (12-78); BILIRUBIN,TOTAL 0.3 MG/DL (0.2-1.0); BLOOD UREA NITROGEN 14 MG/DL (7-18); CALCIUM LEVEL 9.2 MG/DL (8.5-10.1); CARBON DIOXIDE LEVEL 27 MEQ/L (21-32); CHLORIDE LEVEL 109 MEQ/L (98-107); CHOLESTEROL LEVEL 127 MG/DL (<200); CHOLESTEROL RISK RATIO 3.432 (<5); CREATININE FOR GFR 1.04 MG/DL (0.70-1.30); GLOMERULAR FILTRATION RATE > 60.0 (>56); GLUCOSE, FASTING 159 MG/DL (70-100); HDL CHOLESTEROL 37 MG/DL (>40); LDL CHOLESTEROL 56 MG/DL (<100); NON-HDL-C 90 MG/DL; POTASSIUM SERUM 4.4 MEQ/L (3.5-5.1); PROSTATIC SPECIFIC AG MONITOR 0.57 NG/ML (< 4.00); SODIUM LEVEL 142 MEQ/L (136-145); TOTAL PROTEIN 7.9 GM/DL (6.4-8.2); TRIGLYCERIDES LEVEL 169 MG/DL (<150)
[2020-09-06 09:52] LABS: TESTOSTERONE 627 NG/DL (241-827)
== END ==
LOC: M LAB 08:29
PROVIDERS: ATTEND Family Medicine
DX: R53.83 Other fatigue (principal); I10 Essential (primary) hypertension; E11.9 Type 2 diabetes mellitus without complications

== ENCOUNTER → 2020-09-13 | Outpatient (CLI) | payer OTHER ==
[2020-09-13 12:56] LABS: BASO # 0.1 10^3/uL (0.0-0.2); BASO % 1.3 % (0.0-1.0); EOS # 0.4 10^3/uL (0.0-0.5); EOS % 6.2 % (0.0-3.0); HEMATOCRIT 49.1 % (42.0-52.0); HEMOGLOBIN 15.7 g/dl (13.5-17.5); LYMPH # 2.1 10^3/uL (1.5-5.0); LYMPH % 33.8 % (24.0-44.0); MEAN CORPUSCULAR HEMOGLOBIN 28.7 pg (27.0-33.0); MEAN CORPUSCULAR VOLUME 89.8 fl (80.0-96.0); MONO # 0.6 10^3/uL (0.0-0.8); MONO % 9.9 % (2.0-8.0); NEUTROPHILS % 48.6 % (36.0-66.0); PLATELET COUNT, AUTOMATED 183 10^3/uL (150-450); RED BLOOD COUNT 5.47 10^6/uL (4.30-6.10); WHITE BLOOD COUNT 6.3 10^3/uL (4.0-10.0)
[2020-09-13 13:28] LABS: ALBUMIN 3.8 GM/DL (3.2-5.2); ALT/SGPT 169 U/L (12-78); BILIRUBIN,DIRECT 0.1 MG/DL (0.0-0.2); BILIRUBIN,TOTAL 0.4 MG/DL (0.2-1.0); BLOOD UREA NITROGEN 16 MG/DL (7-18); CALCIUM LEVEL 9.5 MG/DL (8.5-10.1); CARBON DIOXIDE LEVEL 32 MEQ/L (21-32); CHLORIDE LEVEL 105 MEQ/L (98-107); CREATININE FOR GFR 0.99 MG/DL (0.70-1.30); GLOMERULAR FILTRATION RATE > 60.0 (>56); GLUCOSE, FASTING 149 MG/DL (70-100); PHOSPHORUS LEVEL 3.7 MG/DL (2.5-4.9); SODIUM LEVEL 141 MEQ/L (136-145); TOTAL PROTEIN 7.9 GM/DL (6.4-8.2)
== END ==
LOC: M LAB 12:16
PROVIDERS: ATTEND Orthopaedic Surgery
DX: M16.11 Unilateral primary osteoarthritis, right hip (principal)

== ENCOUNTER → 2020-10-09 | Outpatient (CLI) | payer OTHER ==
[2020-10-09 13:07] LABS: BLOOD UREA NITROGEN 17 MG/DL (7-18); CARBON DIOXIDE LEVEL 27 MEQ/L (21-32); CHLORIDE LEVEL 105 MEQ/L (98-107); CREATININE FOR GFR 0.93 MG/DL (0.70-1.30); GLOMERULAR FILTRATION RATE > 60.0 (>56); GLUCOSE, FASTING 175 MG/DL (70-100); POTASSIUM SERUM 4.1 MEQ/L (3.5-5.1); SODIUM LEVEL 137 MEQ/L (136-145)
== END ==
LOC: M LAB 11:53
PROVIDERS: ATTEND Nurse Practitioner Family
DX: Z01.810 Encounter for preprocedural cardiovascular examination (principal)

== ENCOUNTER → 2020-12-27 | Outpatient (CLI) | payer OTHER ==
--- NOTE | 2020-12-27 10:01 | REP ---
INDICATION: OTHER CIRRHOSIS OF LIVER LABS 1ST COMPARISON: 04/24/2020 TECHNIQUE: Real time rhodes scale ultrasound examination using curved array transducer. FINDINGS: Liver demonstrates coarsened hyperechoic echotexture consistent with fatty infiltration and/or hepatocellular disease. No focal hepatic lesion identified. No evidence for paddle megaly. Pancreas is incompletely evaluated due to interposed bowel gas. The gallbladder is surgically absent. No biliary ductal dilatation is appreciated and the common bile duct measures 3.3 mm diameter. Right kidney is normal in reniform shape without hydronephrosis and measures 11.8 x 6.1 x 5.4 cm. Trace amount of perihepatic free fluid noted at the liver tip. IMPRESSION: Hepatosteatosis and hepatocellular disease. No focal hepatic lesion <Electronically signed by Everette Escobar > 12/27/20 0912
[2020-12-27 10:17] LABS: HEMATOCRIT 32.8 % (42.0-52.0); HEMOGLOBIN 10.5 g/dl (13.5-17.5); MEAN CORPUSCULAR HEMOGLOBIN 28.8 pg (27.0-33.0); MEAN CORPUSCULAR VOLUME 90.1 fl (80.0-96.0); PLATELET COUNT, AUTOMATED 138 10^3/uL (150-450); RED BLOOD COUNT 3.64 10^6/uL (4.30-6.10); WHITE BLOOD COUNT 4.1 10^3/uL (4.0-10.0)
[2020-12-27 10:47] LABS: ALBUMIN 3.4 GM/DL (3.2-5.2); ALT/SGPT 97 U/L (12-78); BILIRUBIN,TOTAL 0.5 MG/DL (0.2-1.0); BLOOD UREA NITROGEN 19 MG/DL (7-18); CALCIUM LEVEL 8.6 MG/DL (8.5-10.1); CARBON DIOXIDE LEVEL 29 MEQ/L (21-32); CHLORIDE LEVEL 108 MEQ/L (98-107); CREATININE FOR GFR 0.85 MG/DL (0.70-1.30); GLOMERULAR FILTRATION RATE > 60.0 (>56); GLUCOSE, FASTING 154 MG/DL (70-100); POTASSIUM SERUM 4.4 MEQ/L (3.5-5.1); SODIUM LEVEL 140 MEQ/L (136-145); TOTAL PROTEIN 7.2 GM/DL (6.4-8.2)
== END ==
LOC: M LAB 08:59
PROVIDERS: ATTEND Physician Assistant Medical
DX: K74.69 Other cirrhosis of liver (principal); K75.81 Nonalcoholic steatohepatitis (NASH)

== ENCOUNTER → 2020-12-31 | Outpatient (CLI) | payer OTHER ==
[2020-12-31 17:15] LABS: BASO # 0.1 10^3/uL (0.0-0.2); BASO % 1.1 % (0.0-1.0); EOS # 0.4 10^3/uL (0.0-0.5); EOS % 7.1 % (0.0-3.0); HEMATOCRIT 31.4 % (42.0-52.0); HEMOGLOBIN 10.3 g/dl (13.5-17.5); LYMPH # 1.5 10^3/uL (1.5-5.0); LYMPH % 27.4 % (24.0-44.0); MEAN CORPUSCULAR HEMOGLOBIN 28.8 pg (27.0-33.0); MEAN CORPUSCULAR HGB CONC 32.8 g/dl (32.0-36.5); MEAN CORPUSCULAR VOLUME 87.7 fl (80.0-96.0); MONO # 0.6 10^3/uL (0.0-0.8); MONO % 10.6 % (2.0-8.0); NEUTROPHILS # 2.9 10^3/uL (1.5-8.5); NEUTROPHILS % 53.6 % (36.0-66.0); PLATELET COUNT, AUTOMATED 176 10^3/uL (150-450); RED BLOOD COUNT 3.58 10^6/uL (4.30-6.10); WHITE BLOOD COUNT 5.4 10^3/uL (4.0-10.0)
[2020-12-31 18:25] LABS: PERCENT SATURATION 4.1 % (19.7-50.0)
== END ==
LOC: M LAB 15:52
PROVIDERS: ATTEND Physician Assistant Medical
DX: D64.9 Anemia, unspecified (principal)

== ENCOUNTER → 2021-01-07 | Outpatient (CLI) | payer OTHER ==
[~2021-01-07] MED LIST changes: +PANT40TA29 PO
== END ==
LOC: M LABSMTC 09:22
PROVIDERS: ATTEND Anesthesiology
DX: Z20.828 Contact with and (suspected) exposure to other viral communicable diseases (principal); Z11.59 Encounter for screening for other viral diseases

== ENCOUNTER 2021-01-11 07:25 | Day surgery (SDC) | payer OTHER ==
[~2021-01-11] VITALS: Ht 165.1 cm; Wt 90.3 kg
[~2021-01-11 07:25] MED LIST changes: +ALIR75PE3 SC; +NS 1,000 ML IV ONE; -PRAL1INJ SC
[2021-01-11] MEDS ORDERED: LIDOCAINE 2% 100MG/5ML SDV (FOR ANES.) As Ordered ONE (08:59)
[2021-01-11] MEDS ORDERED: propofoL 200 MG/20 ML VIAL As Ordered ONE (08:59)
[2021-01-11] MEDS ORDERED: fentaNYL 100 MCG/2 ML INJECTION (J3010) As Ordered ONE (09:00)
--- NOTE | 2021-01-11 09:25 | ROOR ---
Patient Name: Ignacio Live Procedure Date: 01/11/2021 9:02 AM Date of : 1960 Age: 60 Room: [facility] Gender: Male Note Status: Finalized Procedure: Upper GI endoscopy Indications: Acute post hemorrhagic anemia, Melena, Cirrhosis rule out esophageal varices Providers: Sameer Bush MD Referring MD: ZOE COELHO MD Requesting Provider: Medicines: Monitored Anesthesia Care Complications: No immediate complications. Procedure: Pre-Anesthesia Assessment: - The heart rate, respiratory rate, oxygen saturations, blood pressure, adequacy of pulmonary ventilation, and response to care were monitored throughout the procedure. The Endoscope was introduced through the mouth, and advanced to the second part of duodenum. The upper GI endoscopy was accomplished without difficulty. The patient tolerated the procedure well. Findings: Grade II varices were found in the lower third of the esophagus. Three bands were successfully placed with complete eradication, resulting in deflation of varices. Mild portal hypertensive gastropathy was found in the gastric fundus. The exam of the stomach was otherwise normal. The examined duodenum was normal. Impression: - Grade II esophageal varices. Completely eradicated. Banded. - Portal hypertensive gastropathy. - Normal examined duodenum. - No specimens collected. Recommendation: - Repeat upper endoscopy in 1 month for retreatment. - My office will call you to reschedule the procedure. - - Lidocaine viscous- swallow 5 ml as needed every 4-6 hrs for swallowing pain/esophageal pain. - Script sent to pharmacy Procedure Code(s): --- Professional --- 63032, Esophagogastroduodenoscopy, flexible, transoral; with band ligation of esophageal/gastric varices Diagnosis Code(s): --- Professional --- K74.60, Unspecified cirrhosis of liver I85.10, Secondary esophageal varices without bleeding K76.6, Portal hypertension K31.89, Other diseases of stomach and duodenum D62, Acute posthemorrhagic anemia K92.1, Melena (includes Hematochezia) CPT copyright 2019 [employer]. All rights reserved. The codes documented in this report are preliminary and upon medical biller/coder review may be revised to meet current compliance requirements. Sameer Bush MD Sameer Bush MD 01/11/2021 9:24:53 AM Electronically signed by Sameer Bush MD Number of Addenda: 0 Note Initiated On: 01/11/2021 9:02 AM Estimated Blood Loss: Estimated blood loss: none.
[2021-01-11 09:41] VITALS: BP 163/84
== END 2021-01-11 09:42 | disposition home or self-care (01) ==
LOC: M OPP 07:25
PROVIDERS: ATTEND Internal Medicine Gastroenterology
DX: K74.60 Unspecified cirrhosis of liver (principal); I85.10 Secondary esophageal varices without bleeding; K76.6 Portal hypertension; K31.89 Other diseases of stomach and duodenum; D62 Acute posthemorrhagic anemia; K92.1 Melena; Z79.82 Long term (current) use of aspirin; Z79.899 Other long term (current) drug therapy; Z91.040 Latex allergy status; Z91.048 Other nonmedicinal substance allergy status
CPT/HCPCS: 43244; J3010

== ENCOUNTER 2021-01-12 14:29 | Emergency (ER) | payer OTHER ==
[~2021-01-12] VITALS: Ht 165.1 cm; Wt 90.4 kg
[~2021-01-12 14:29] MED LIST changes: -NS 1,000 ML IV ONE
--- NOTE | 2021-01-12 16:46 | REP ---
INDICATION: fever COMPARISON: 10/28/2018 TECHNIQUE: PA and lateral. FINDINGS: The mediastinum and cardiac silhouette are stable. Prior sternotomy and CABG again noted. The lung espinoza are clear and without acute consolidation, effusion, or pneumothorax. The skeletal structures are intact and normal. IMPRESSION: No acute cardiopulmonary process. <Electronically signed by Everette Escobar > 01/12/21 [id number]
[2021-01-12 17:28] LABS: BASO % 0.5 % (0.0-1.0); EOS % 0.4 % (0.0-3.0); HEMATOCRIT 31.7 % (42.0-52.0); HEMOGLOBIN 10.1 g/dl (13.5-17.5); LYMPH # 0.6 10^3/uL (1.5-5.0); LYMPH % 10.7 % (24.0-44.0); MEAN CORPUSCULAR HEMOGLOBIN 26.7 pg (27.0-33.0); MEAN CORPUSCULAR HGB CONC 31.9 g/dl (32.0-36.5); MEAN CORPUSCULAR VOLUME 83.9 fl (80.0-96.0); MONO # 0.5 10^3/uL (0.0-0.8); MONO % 8.7 % (2.0-8.0); NEUTROPHILS # 4.4 10^3/uL (1.5-8.5); NEUTROPHILS % 79.5 % (36.0-66.0); PLATELET COUNT, AUTOMATED 126 10^3/uL (150-450); RED BLOOD COUNT 3.78 10^6/uL (4.30-6.10); WHITE BLOOD COUNT 5.5 10^3/uL (4.0-10.0)
[2021-01-12 18:11] VITALS: BP 131/73
== END 2021-01-12 18:42 | disposition home or self-care (01) ==
LOC: M ED 14:29
DX: R50.9 Fever, unspecified (principal); E11.9 Type 2 diabetes mellitus without complications; I11.0 Hypertensive heart disease with heart failure; I50.9 Heart failure, unspecified; G47.33 Obstructive sleep apnea (adult) (pediatric); K21.9 Gastro-esophageal reflux disease without esophagitis; Z79.899 Other long term (current) drug therapy; Z79.82 Long term (current) use of aspirin; Z88.8 Allergy status to other drugs, medicaments and biological substances; Z91.040 Latex allergy status; Z91.048 Other nonmedicinal substance allergy status; F12.20 Cannabis dependence, uncomplicated

== ENCOUNTER → 2021-02-11 | Outpatient (CLI) | payer OTHER ==
[~2021-02-11] MED LIST changes: +JARD1TAB3 PO; -MOME50SP; +NASO50SP3; +REPA140I2 INJ
== END ==
LOC: M LABSMTC 09:17
PROVIDERS: ATTEND Anesthesiology
DX: Z20.828 Contact with and (suspected) exposure to other viral communicable diseases (principal); Z11.59 Encounter for screening for other viral diseases

== ENCOUNTER → 2021-02-11 | Outpatient (CLI) | payer OTHER ==
[2021-02-11 10:50] LABS: HEMATOCRIT 37.8 % (42.0-52.0); HEMOGLOBIN 11.6 g/dl (13.5-17.5); MEAN CORPUSCULAR HEMOGLOBIN 24.7 pg (27.0-33.0); MEAN CORPUSCULAR HGB CONC 30.7 g/dl (32.0-36.5); MEAN CORPUSCULAR VOLUME 80.6 fl (80.0-96.0); PLATELET COUNT, AUTOMATED 128 10^3/uL (150-450); RED BLOOD COUNT 4.69 10^6/uL (4.30-6.10); WHITE BLOOD COUNT 4.7 10^3/uL (4.0-10.0)
[2021-02-11 11:18] LABS: PERCENT SATURATION 5.1 % (19.7-50.0)
== END ==
LOC: M LAB 10:00
PROVIDERS: ATTEND Physician Assistant Medical
DX: D64.9 Anemia, unspecified (principal)

== ENCOUNTER 2021-02-15 06:45 | Day surgery (SDC) | payer OTHER ==
[~2021-02-15] VITALS: Ht 165.1 cm; Wt 87.7 kg
[~2021-02-15 06:45] MED LIST changes: +MOME50SP; -NASO50SP3; +NS 1,000 ML IV ONE; -REPA140I2 INJ; +SIMETHICONE 40MG/0.6ML DROPS 30ML As Ordered ONE
[2021-02-15] MEDS ORDERED: propofoL 200 MG/20 ML VIAL As Ordered ONE (07:13)
[2021-02-15] MEDS ORDERED: LIDOCAINE 2% 100MG/5ML SDV (FOR ANES.) As Ordered ONE (07:13)
--- NOTE | 2021-02-15 07:54 | ROOR ---
Patient Name: Ignacio Live Procedure Date: 02/15/2021 7:25 AM Date of : 1960 Age: 60 Room: [facility] Gender: Male Note Status: Finalized Procedure: Upper GI endoscopy Indications: Cirrhosis rule out esophageal varices, Follow-up of esophageal varices. Providers: Sameer Bush MD Referring MD: ZOE COELHO MD Requesting Provider: Medicines: Monitored Anesthesia Care Complications: No immediate complications. Procedure: Pre-Anesthesia Assessment: - The heart rate, respiratory rate, oxygen saturations, blood pressure, adequacy of pulmonary ventilation, and response to care were monitored throughout the procedure. The Endoscope was introduced through the mouth, and advanced to the second part of duodenum. The upper GI endoscopy was accomplished without difficulty. The patient tolerated the procedure well. Findings: Mild portal hypertensive gastropathy was found in the gastric body. Grade II varices were found in the lower third of the esophagus. They were medium in size. Four bands were successfully placed with complete eradication, resulting in deflation of varices. The exam was otherwise without abnormality. Impression: - Portal hypertensive gastropathy. - Grade II esophageal varices. Completely eradicated. Banded. - The examination was otherwise normal. - No specimens collected. Recommendation: - Repeat upper endoscopy in 1 month for retreatment. - My office will call you to reschedule the procedure. - Use Viscous Lidocaine at 2% 5 mL PO q 4 hrs for 1 day. (PRN swallowing pain) Procedure Code(s): --- Professional --- 37427, Esophagogastroduodenoscopy, flexible, transoral; with band ligation of esophageal/gastric varices Diagnosis Code(s): --- Professional --- K76.6, Portal hypertension K31.89, Other diseases of stomach and duodenum K74.60, Unspecified cirrhosis of liver I85.10, Secondary esophageal varices without bleeding CPT copyright 2019 [employer]. All rights reserved. The codes documented in this report are preliminary and upon subsurface augmentee elint operator review may be revised to meet current compliance requirements. Sameer Bush MD Sameer Bush MD 02/15/2021 7:54:31 AM Electronically signed by Sameer Bush MD Number of Addenda: 0 Note Initiated On: 02/15/2021 7:25 AM Estimated Blood Loss: Estimated blood loss: none.
[2021-02-15 08:14] VITALS: BP 180/88
== END 2021-02-15 08:14 | disposition home or self-care (01) ==
LOC: M SDC 06:45
PROVIDERS: ATTEND Internal Medicine Gastroenterology
DX: K76.6 Portal hypertension (principal); I85.10 Secondary esophageal varices without bleeding; K31.89 Other diseases of stomach and duodenum; K74.60 Unspecified cirrhosis of liver; I25.10 Atherosclerotic heart disease of native coronary artery without angina pectoris; G47.33 Obstructive sleep apnea (adult) (pediatric); I10 Essential (primary) hypertension; Z79.899 Other long term (current) drug therapy; Z87.891 Personal history of nicotine dependence; F12.10 Cannabis abuse, uncomplicated; Z91.040 Latex allergy status; Z88.8 Allergy status to other drugs, medicaments and biological substances

== ENCOUNTER → 2021-03-19 | Outpatient (CLI) | payer OTHER ==
[~2021-03-19] MED LIST changes: -NS 1,000 ML IV ONE; -SIMETHICONE 40MG/0.6ML DROPS 30ML As Ordered ONE
--- NOTE | 2021-03-19 16:50 | REP ---
INDICATION: RIGHT HIP OSTEOARTHRITIS/ PRE-OP COMPARISON: 01/12/2021. TECHNIQUE: PA/Lateral FINDINGS: Lungs: Clear, no infiltrate. Heart: Normal in size. Mediastinum: Mediastinal silhouette unremarkable. Pleural angles: Unremarkable.. Bones and soft tissues: There are mild degenerative changes of the spine without compression deformity.. Multiple sternal wires mediastinal clips are present. IMPRESSION: No acute pulmonary disease. <Electronically signed by Pepito Ceron > 03/19/21 [id number]
[2021-03-19 17:05] LABS: HEMATOCRIT 44.2 % (42.0-52.0); HEMOGLOBIN 13.8 g/dl (13.5-17.5); MEAN CORPUSCULAR HEMOGLOBIN 25.7 pg (27.0-33.0); MEAN CORPUSCULAR HGB CONC 31.2 g/dl (32.0-36.5); MEAN CORPUSCULAR VOLUME 82.2 fl (80.0-96.0); PLATELET COUNT, AUTOMATED 161 10^3/uL (150-450); RED BLOOD COUNT 5.38 10^6/uL (4.30-6.10); WHITE BLOOD COUNT 6.4 10^3/uL (4.0-10.0)
[2021-03-19 17:16] LABS: ALBUMIN 3.5 GM/DL (3.2-5.2); ALT/SGPT 82 U/L (12-78); BILIRUBIN,TOTAL 0.5 MG/DL (0.2-1.0); BLOOD UREA NITROGEN 13 MG/DL (7-18); CALCIUM LEVEL 9.3 MG/DL (8.8-10.2); CARBON DIOXIDE LEVEL 29 MEQ/L (21-32); CHLORIDE LEVEL 104 MEQ/L (98-107); CREATININE FOR GFR 1.14 MG/DL (0.70-1.30); GLOMERULAR FILTRATION RATE > 60.0 (>49); GLUCOSE, FASTING 138 MG/DL (70-100); INR 1.12; POTASSIUM SERUM 4.1 MEQ/L (3.5-5.1); PROTHROMBIN TIME 14.8 SECONDS (12.7-14.5); SODIUM LEVEL 139 MEQ/L (136-145); TOTAL PROTEIN 7.9 GM/DL (6.4-8.2)
[2021-03-19 20:20] LABS: ERYTHROCYTE SEDIMENTATION RATE 6 mm/hr (0-20)
--- NOTE | 2021-03-21 22:14 | ECGEPIP ---
[facility] Test Date: 2021-03-19 Pat Name: ISABELLE DE LUNA Department: Room: - Gender: Male Electric Welder: nicholas : 1960 Requested By: Nik Delgado Order Number: [id number] Reading MD: Osorio Guzman Measurements Intervals [place] Rate: 86 P: 30 [place]: 142 QRS: 63 QRSD: 90 T: 50 QT: 364 QTc: 435 Interpretive Statements Normal sinus rhythm Compared to prior tracings (2) in the system, no remarkable changes Electronically Signed on 03-21-2021 22:13:45 EDT by Osorio Guzman
== END ==
LOC: M LAB 15:59
PROVIDERS: ATTEND Orthopaedic Surgery
DX: Z01.818 Encounter for other preprocedural examination (principal); M16.11 Unilateral primary osteoarthritis, right hip

== ENCOUNTER → 2021-06-14 | Outpatient (CLI) | payer OTHER ==
--- NOTE | 2021-06-17 15:23 | SLEEPCENT ---
DATE: 06/14/2021 ORDERED BY: VINAY Andre Nocturnal polysomnography was performed for titration of pressure therapy in this patient with obstructive sleep apnea syndrome, apnea-hypopnea index 71.7. For testing, a [id number] full face mask of medium size was used, 4 cm of water pressure were applied to the circuit and the lights were extinguished. Eight hours and 28 minutes of data were reviewed. There were 398.5 minutes of sleep identified. Sleep latency was prolonged at 72.5 minutes. REM latency was normal at 63 minutes. Sleep architecture showed some fragmentation but four REM cycles were noted. Overall sleep efficiency was 79.1%. The electrocardiogram showed a sinus rhythm with an average heart rate of 70 beats per minute. EEG showed reasonably normal waveforms for wake and sleep. Respiratory events were best palliated with CPAP at a pressure of 11. There was some significant limb activity in the EMG leads. Limb movement arousal index on this occasion was 3.6. IMPRESSIONS: Obstructive sleep apnea syndrome (G47.33). RECOMMENDATION: Nightly use of pressure therapy 11 cm of water. cc: Margaret Del Cid M.D.
== END ==
LOC: M SLEEP 20:00
PROVIDERS: ATTEND Nurse Practitioner Family
DX: G47.33 Obstructive sleep apnea (adult) (pediatric) (principal)

== ENCOUNTER → 2021-06-24 | Outpatient (CLI) | payer OTHER ==
[~2021-06-24] MED LIST changes: +REPA140I2 INJ
== END ==
LOC: M LABSMTC 10:50
PROVIDERS: ATTEND Anesthesiology
DX: Z01.818 Encounter for other preprocedural examination (principal); Z11.52 Encounter for screening for COVID-19

== ENCOUNTER 2021-06-28 06:37 | Day surgery (SDC) | payer OTHER ==
[~2021-06-28] VITALS: Ht 165.1 cm; Wt 90.2 kg
[~2021-06-28 06:37] MED LIST changes: -MOME50SP; +NASO50SP3; +NS 1,000 ML IV ONE
[2021-06-28] MEDS ORDERED: propofoL 200 MG/20 ML VIAL As Ordered ONE ×3 (06:48→08:45)
[2021-06-28] MEDS ORDERED: LIDOCAINE 2% 100MG/5ML SDV (FOR ANES.) As Ordered ONE (06:48)
[2021-06-28] MEDS ORDERED: GLYCOPYRROLATE INJ 0.2 MG/ML 2 ML VIAL As Ordered ONE (06:48)
[2021-06-28 08:22] VITALS: BP 141/90
[2021-08-23] MEDS ORDERED: TELM1TAB37 PO (13:14)
== END 2021-06-28 09:30 | disposition home or self-care (01) ==
LOC: M OPP 06:37
PROVIDERS: ATTEND Internal Medicine Gastroenterology
DX: K76.6 Portal hypertension (principal); I85.00 Esophageal varices without bleeding; K31.89 Other diseases of stomach and duodenum; Z80.0 Family history of malignant neoplasm of digestive organs; Z83.71 Family history of colonic polyps; Z80.42 Family history of malignant neoplasm of prostate; I51.9 Heart disease, unspecified; K74.60 Unspecified cirrhosis of liver; Z79.82 Long term (current) use of aspirin; Z79.899 Other long term (current) drug therapy; Z88.8 Allergy status to other drugs, medicaments and biological substances; Z91.048 Other nonmedicinal substance allergy status; Z87.891 Personal history of nicotine dependence

== ENCOUNTER → 2021-07-11 | Outpatient (CLI) | payer OTHER ==
[~2021-07-11] MED LIST changes: +MOME50SP; -NASO50SP3; -NS 1,000 ML IV ONE
[2021-07-11 12:42] LABS: HEMOGLOBIN 14.7 g/dl (13.5-17.5); MEAN CORPUSCULAR HEMOGLOBIN 27.9 pg (27.0-33.0); MEAN CORPUSCULAR HGB CONC 32.7 g/dl (32.0-36.5); MEAN CORPUSCULAR VOLUME 85.4 fl (80.0-96.0); PLATELET COUNT, AUTOMATED 163 10^3/uL (150-450); RED BLOOD COUNT 5.27 10^6/uL (4.30-6.10)
[2021-07-11 13:20] LABS: ALBUMIN 3.7 GM/DL (3.2-5.2); ALT/SGPT 83 U/L (12-78); BILIRUBIN,TOTAL 0.6 MG/DL (0.2-1.0); BLOOD UREA NITROGEN 16 MG/DL (7-18); CALCIUM LEVEL 9.3 MG/DL (8.8-10.2); CARBON DIOXIDE LEVEL 26 MEQ/L (21-32); CHLORIDE LEVEL 108 MEQ/L (98-107); GLOMERULAR FILTRATION RATE > 60.0 (>49); GLUCOSE, FASTING 123 MG/DL (70-100); POTASSIUM SERUM 3.9 MEQ/L (3.5-5.1); SODIUM LEVEL 140 MEQ/L (136-145); TOTAL PROTEIN 8.4 GM/DL (6.4-8.2)
== END ==
LOC: M LAB 11:33
PROVIDERS: ATTEND Physician Assistant Medical
DX: K74.60 Unspecified cirrhosis of liver (principal)

== ENCOUNTER → 2021-07-16 | Outpatient (REF) | payer OTHER | LOC: M LAB 09:39 | PROVIDERS: ATTEND Physician Assistant Medical | DX: K74.60 Unspecified cirrhosis of liver (principal) ==

== ENCOUNTER → 2021-07-22 | Outpatient (REF) | payer OTHER ==
[2021-07-22 18:21] LABS: MALB URINE SIEMENS 6.5 MG/L; MAU/CREAT RATIO 5.5 MCG/MG (0.0-30.0)
== END ==
LOC: M LAB REF 17:00
PROVIDERS: ATTEND Nurse Practitioner Family
DX: E11.65 Type 2 diabetes mellitus with hyperglycemia (principal)

== ENCOUNTER → 2021-07-23 | Outpatient (CLI) | payer OTHER | LOC: M RAD 08:22 | PROVIDERS: ATTEND Physician Assistant Medical | DX: K74.60 Unspecified cirrhosis of liver (principal) ==

== ENCOUNTER → 2021-08-26 | Outpatient (CLI) | payer OTHER ==
[~2021-08-26] MED LIST changes: -MOME50SP; +NASO50SP3
[2021-08-26 11:53] LABS: HEMATOCRIT 45.1 % (42.0-52.0); HEMOGLOBIN 14.6 g/dl (13.5-17.5); MEAN CORPUSCULAR HEMOGLOBIN 28.8 pg (27.0-33.0); MEAN CORPUSCULAR HGB CONC 32.4 g/dl (32.0-36.5); PLATELET COUNT, AUTOMATED 112 10^3/uL (150-450); RED BLOOD COUNT 5.07 10^6/uL (4.30-6.10); WHITE BLOOD COUNT 4.3 10^3/uL (4.0-10.0)
[2021-08-26 12:14] LABS: HEMOGLOBIN A1c 7.1 %
[2021-08-26 12:49] LABS: ALBUMIN 3.5 GM/DL (3.2-5.2); ALT/SGPT 82 U/L (12-78); BILIRUBIN,TOTAL 0.6 MG/DL (0.2-1.0); BLOOD UREA NITROGEN 13 MG/DL (7-18); CALCIUM LEVEL 9.2 MG/DL (8.8-10.2); CARBON DIOXIDE LEVEL 28 MEQ/L (21-32); CHLORIDE LEVEL 108 MEQ/L (98-107); CHOLESTEROL LEVEL 134 MG/DL (<200); CREATININE FOR GFR 0.89 MG/DL (0.70-1.30); GLOMERULAR FILTRATION RATE > 60.0 (>49); GLUCOSE, FASTING 144 MG/DL (70-100); HDL CHOLESTEROL 40 MG/DL (>40); LDL CHOLESTEROL 57 MG/DL (<100); NON-HDL-C 94 MG/DL; POTASSIUM SERUM 4.4 MEQ/L (3.5-5.1); PROSTATIC SPECIFIC AG MONITOR 0.52 NG/ML (< 4.00); SODIUM LEVEL 141 MEQ/L (136-145); TOTAL PROTEIN 7.7 GM/DL (6.4-8.2); TRIGLYCERIDES LEVEL 183 MG/DL (<150)
[2021-08-26 13:14] LABS: TESTOSTERONE 643 NG/DL (241-827)
== END ==
LOC: M LAB 10:53
PROVIDERS: ATTEND Family Medicine
DX: I10 Essential (primary) hypertension (principal); R53.83 Other fatigue; E03.9 Hypothyroidism, unspecified

== ENCOUNTER → 2021-08-28 | Outpatient (CLI) | payer OTHER | LOC: M LABSMTC 11:57 | PROVIDERS: ATTEND Anesthesiology | DX: Z01.812 Encounter for preprocedural laboratory examination (principal); Z20.822 Contact with and (suspected) exposure to COVID-19 ==

== ENCOUNTER 2021-09-02 06:43 | Day surgery (SDC) | payer OTHER ==
[~2021-09-02] VITALS: Ht 165.1 cm; Wt 89.8 kg
[~2021-09-02 06:43] MED LIST changes: +NS 1,000 ML IV ONE
[2021-09-02] MEDS ORDERED: fentaNYL 100 MCG/2 ML INJECTION As Ordered ONE (07:07)
[2021-09-02] MEDS ORDERED: propofoL 200 MG/20 ML VIAL As Ordered ONE (07:07)
[2021-09-02] MEDS ORDERED: LIDOCAINE 2% INJ 100 MG/5 ML SYRINGE As Ordered ONE (07:07)
[2021-09-02 08:23] VITALS: BP 127/79
== END 2021-09-02 08:35 | disposition home or self-care (01) ==
LOC: M OPP 06:43
PROVIDERS: ATTEND Internal Medicine Gastroenterology
DX: I85.10 Secondary esophageal varices without bleeding (principal); K76.6 Portal hypertension; K31.89 Other diseases of stomach and duodenum; K74.60 Unspecified cirrhosis of liver; Z80.0 Family history of malignant neoplasm of digestive organs; Z79.82 Long term (current) use of aspirin; Z79.899 Other long term (current) drug therapy; Z88.8 Allergy status to other drugs, medicaments and biological substances; Z91.048 Other nonmedicinal substance allergy status; Z87.891 Personal history of nicotine dependence
CPT/HCPCS: 43244; J3010

== ENCOUNTER → 2021-10-28 | Outpatient (CLI) | payer OTHER ==
[~2021-10-28] MED LIST changes: -NS 1,000 ML IV ONE
== END ==
LOC: M LABSMTC 09:38
PROVIDERS: ATTEND Anesthesiology
DX: Z01.812 Encounter for preprocedural laboratory examination (principal); Z20.822 Contact with and (suspected) exposure to COVID-19

== ENCOUNTER → 2022-01-05 | Outpatient (CLI) | payer OTHER | LOC: M LABSMTC 11:43 | PROVIDERS: ATTEND Anesthesiology | DX: Z20.828 Contact with and (suspected) exposure to other viral communicable diseases (principal); Z11.59 Encounter for screening for other viral diseases ==

== ENCOUNTER → 2022-01-06 | Outpatient (CLI) | payer OTHER ==
[2022-01-06 09:59] LABS: HEMATOCRIT 44.2 % (42.0-52.0); MEAN CORPUSCULAR HEMOGLOBIN 31.2 pg (27.0-33.0); MEAN CORPUSCULAR HGB CONC 33.9 g/dl (32.0-36.5); MEAN CORPUSCULAR VOLUME 91.9 fl (80.0-96.0); PLATELET COUNT, AUTOMATED 101 10^3/uL (150-450); RED BLOOD COUNT 4.81 10^6/uL (4.30-6.10); WHITE BLOOD COUNT 3.7 10^3/uL (4.0-10.0)
[2022-01-06 10:27] LABS: ALBUMIN 3.6 GM/DL (3.2-5.2); BILIRUBIN,DIRECT 0.2 MG/DL (0.0-0.2); BILIRUBIN,TOTAL 0.5 MG/DL (0.2-1.0); TOTAL PROTEIN 7.6 GM/DL (6.4-8.2)
== END ==
LOC: M LAB 09:37
PROVIDERS: ATTEND Physician Assistant Medical
DX: K74.60 Unspecified cirrhosis of liver (principal)

== ENCOUNTER 2022-01-10 10:00 | Day surgery (SDC) | payer OTHER ==
[~2022-01-10] VITALS: Ht 165.1 cm; Wt 88.8 kg
[~2022-01-10 10:00] MED LIST changes: +NS 1,000 ML IV ONE
[2022-01-10] MEDS ORDERED: LIDOCAINE 2% INJ 100 MG/5 ML SYRINGE As Ordered ONE (12:12)
[2022-01-10] MEDS ORDERED: propofoL 200 MG/20 ML VIAL As Ordered ONE ×2 (12:12→13:21)
[2022-01-10] MEDS ORDERED: fentaNYL 100 MCG/2 ML INJECTION As Ordered ONE (12:12)
[2022-01-10 13:50] VITALS: BP 129/74
== END 2022-01-10 14:15 | disposition home or self-care (01) ==
LOC: M OPP 10:00
PROVIDERS: ATTEND Internal Medicine Gastroenterology
DX: K31.89 Other diseases of stomach and duodenum (principal); K76.6 Portal hypertension; I85.00 Esophageal varices without bleeding; K74.60 Unspecified cirrhosis of liver; R74.01 Elevation of levels of liver transaminase levels; I51.9 Heart disease, unspecified; Z79.82 Long term (current) use of aspirin; Z79.84 Long term (current) use of oral hypoglycemic drugs; Z79.899 Other long term (current) drug therapy; Z88.8 Allergy status to other drugs, medicaments and biological substances; Z91.048 Other nonmedicinal substance allergy status; Z80.0 Family history of malignant neoplasm of digestive organs; Z80.42 Family history of malignant neoplasm of prostate; Z80.1 Family history of malignant neoplasm of trachea, bronchus and lung; Z83.79 Family history of other diseases of the digestive system
CPT/HCPCS: 43244; J3010

== ENCOUNTER → 2022-04-07 | Outpatient (CLI) | payer OTHER ==
[~2022-04-07] MED LIST changes: -NS 1,000 ML IV ONE
[2022-04-07 11:47] LABS: HEMOGLOBIN 16.4 g/dl (13.5-17.5); MEAN CORPUSCULAR HEMOGLOBIN 31.1 pg (27.0-33.0); MEAN CORPUSCULAR HGB CONC 33.5 g/dl (32.0-36.5); MEAN CORPUSCULAR VOLUME 92.8 fl (80.0-96.0); PLATELET COUNT, AUTOMATED 126 10^3/uL (150-450); RED BLOOD COUNT 5.28 10^6/uL (4.30-6.10); WHITE BLOOD COUNT 5.2 10^3/uL (4.0-10.0)
[2022-04-07 12:55] LABS: ALT/SGPT 128 U/L (12-78); BILIRUBIN,TOTAL 0.8 MG/DL (0.2-1.0); BLOOD UREA NITROGEN 11 MG/DL (7-18); CALCIUM LEVEL 9.2 MG/DL (8.8-10.2); CARBON DIOXIDE LEVEL 30 MEQ/L (21-32); CHLORIDE LEVEL 105 MEQ/L (98-107); CHOLESTEROL LEVEL 221 MG/DL (<200); CHOLESTEROL RISK RATIO 5.525 (<5); CREATININE FOR GFR 1.04 MG/DL (0.70-1.30); GLOMERULAR FILTRATION RATE > 60.0 (>49); GLUCOSE, FASTING 117 MG/DL (70-100); HDL CHOLESTEROL 40 MG/DL (>40); NON-HDL-C 181 MG/DL; POTASSIUM SERUM 4.4 MEQ/L (3.5-5.1); SODIUM LEVEL 138 MEQ/L (136-145); TRIGLYCERIDES LEVEL 208 MG/DL (<150)
[2022-04-07 12:56] LABS: ALBUMIN 3.7 GM/DL (3.2-5.2); LDL CHOLESTEROL 139 MG/DL (<100); TOTAL PROTEIN 8.1 GM/DL (6.4-8.2)
[2022-04-07 14:10] LABS: TESTOSTERONE 566 NG/DL (241-827)
[2022-04-07 16:38] LABS: HEMOGLOBIN A1c 7.6 %
== END ==
LOC: M LAB 11:13
PROVIDERS: ATTEND Family Medicine
DX: R53.83 Other fatigue (principal); I10 Essential (primary) hypertension; E03.9 Hypothyroidism, unspecified
CPT/HCPCS: 36415; 80053; 80061; 83036; 84403; 84443; 85027; G0103

== ENCOUNTER → 2022-07-23 | Outpatient (REF) | payer OTHER ==
[2022-07-23 18:45] LABS: CREATININE, URINE 107.7 MG/DL; MALB URINE SIEMENS < 3.0 MG/DL; MAU/CREAT RATIO 2.7 MCG/MG (0.0-30.0)
== END ==
LOC: M LAB REF 17:01
PROVIDERS: ATTEND Nurse Practitioner Family
DX: E11.65 Type 2 diabetes mellitus with hyperglycemia (principal)

== ENCOUNTER → 2022-09-03 | Outpatient (CLI) | payer OTHER ==
[2022-09-03 10:25] LABS: HEMATOCRIT 49.9 % (42.0-52.0); HEMOGLOBIN 16.5 g/dl (13.5-17.5); MEAN CORPUSCULAR HEMOGLOBIN 30.4 pg (27.0-33.0); MEAN CORPUSCULAR HGB CONC 33.1 g/dl (32.0-36.5); MEAN CORPUSCULAR VOLUME 92.1 fl (80.0-96.0); PLATELET COUNT, AUTOMATED 110 10^3/uL (150-450); RED BLOOD COUNT 5.42 10^6/uL (4.30-6.10); WHITE BLOOD COUNT 4.4 10^3/uL (4.0-10.0)
[2022-09-03 10:38] LABS: HEMOGLOBIN A1c 11.2 % (4.0-6.0)
[2022-09-03 11:20] LABS: ALBUMIN 3.5 G/DL (3.2-5.2); ALKALINE PHOSPHATASE 155 U/L (46-116); ALT/SGPT 164 U/L (7.0-40); AST/SGOT 132 U/L (<34); BILIRUBIN,TOTAL 1.4 MG/DL (0.3-1.2); BLOOD UREA NITROGEN 16 MG/DL (9-23); CALCIUM LEVEL 9.7 MG/DL (8.3-10.6); CARBON DIOXIDE LEVEL 27 MMOL/L (20-31); CHLORIDE LEVEL 102 MMOL/L (98-107); CHOLESTEROL LEVEL 232 MG/DL (<200); CHOLESTEROL RISK RATIO 6.84 (<5); CREATININE FOR GFR 0.81 MG/DL (0.70-1.30); GLOMERULAR FILTRATION RATE > 60.0 (>49); GLUCOSE, FASTING 193 MG/DL (74-106); HDL CHOLESTEROL 33.9 MG/DL (>40); NON-HDL-C 198 MG/DL; POTASSIUM SERUM 4.4 MMOL/L (3.5-5.1); PROSTATIC SPECIFIC AG MONITOR 0.46 NG/ML (< 4.00); SODIUM LEVEL 138 MMOL/L (136-145); TESTOSTERONE 669 NG/DL (241-827); THYROID STIMULATING HORMONE 1.296 uIU/ML (0.55-4.78); THYROXINE (T4) 8.3 UG/DL (4.5-10.9); TOTAL 25(OH) VITAMIN D 38.4 NG/ML (20.0-100.0); TOTAL T3 121.1 NG/DL (60.0-181.0)
[2022-09-03 18:32] LABS: LDL CHOLESTEROL 140.9 MG/DL (<100); TRIGLYCERIDES LEVEL 286 MG/DL (<150)
== END ==
LOC: M LAB 09:52
PROVIDERS: ATTEND Family Medicine
DX: R53.83 Other fatigue (principal); D64.9 Anemia, unspecified; E03.9 Hypothyroidism, unspecified

== ENCOUNTER → 2023-03-30 | Outpatient (CLI) | payer OTHER ==
[~2023-03-30] MED LIST changes: +MONT-5 PO; -ROPI1TAB3 PO; +ROPI1TAB73 PO; -SING10TA32 PO
[2023-03-30 10:29] LABS: HEMOGLOBIN 16.5 g/dl (13.5-17.5); MEAN CORPUSCULAR HEMOGLOBIN 30.3 pg (27.0-33.0); MEAN CORPUSCULAR VOLUME 91.9 fl (80.0-96.0); RED BLOOD COUNT 5.44 10^6/uL (4.30-6.10); WHITE BLOOD COUNT 3.5 10^3/uL (4.0-10.0)
[2023-03-30 10:50] LABS: INR 1.12; PROTHROMBIN TIME 14.1 SECONDS (12.5-14.5)
[2023-03-30 10:58] LABS: ALBUMIN 3.8 G/DL (3.2-5.2); ALKALINE PHOSPHATASE 120 U/L (46-116); ALT/SGPT 99 U/L (7.0-40); AST/SGOT 91 U/L (<34); BILIRUBIN,TOTAL 1.7 MG/DL (0.3-1.2); BLOOD UREA NITROGEN 12 MG/DL (9-23); CALCIUM LEVEL 9.1 MG/DL (8.3-10.6); CARBON DIOXIDE LEVEL 28 MMOL/L (20-31); CHLORIDE LEVEL 103 MMOL/L (98-107); CREATININE FOR GFR 0.76 MG/DL (0.70-1.30); GLOMERULAR FILTRATION RATE > 60.0 (>49); GLUCOSE, FASTING 139 MG/DL (74-106); POTASSIUM SERUM 4.1 MMOL/L (3.5-5.1); SODIUM LEVEL 139 MMOL/L (136-145); TOTAL PROTEIN 7.8 G/DL (5.7-8.2)
[2023-03-30 11:04] LABS: PLATELET COUNT, AUTOMATED 91 10^3/uL (150-450)
== END ==
LOC: M RAD 07:59
PROVIDERS: ATTEND Physician Assistant
DX: K74.60 Unspecified cirrhosis of liver (principal); I65.01 Occlusion and stenosis of right vertebral artery

== ENCOUNTER → 2023-09-23 | Outpatient (CLI) | payer OTHER ==
[2023-09-23 11:43] LABS: HEMATOCRIT 47.3 % (42.0-52.0); HEMOGLOBIN 15.8 g/dl (13.5-17.5); MEAN CORPUSCULAR HEMOGLOBIN 31.2 pg (27.0-33.0); MEAN CORPUSCULAR HGB CONC 33.4 g/dl (32.0-36.5); MEAN CORPUSCULAR VOLUME 93.5 fl (80.0-96.0); PLATELET COUNT, AUTOMATED 106 10^3/uL (150-450); RED BLOOD COUNT 5.06 10^6/uL (4.30-6.10); WHITE BLOOD COUNT 4.1 10^3/uL (4.0-10.0)
[2023-09-23 11:53] LABS: INR 1.21; PROTHROMBIN TIME 14.9 SECONDS (12.5-14.5)
[2023-09-23 12:04] LABS: ALBUMIN 3.5 G/DL (3.2-5.2); ALKALINE PHOSPHATASE 121 U/L (46-116); ALT/SGPT 79 U/L (7.0-40); AST/SGOT 68 U/L (<34); BLOOD UREA NITROGEN 18 MG/DL (9-23); CALCIUM LEVEL 8.7 MG/DL (8.3-10.6); CARBON DIOXIDE LEVEL 28 MMOL/L (20-31); CHLORIDE LEVEL 106 MMOL/L (98-107); CREATININE FOR GFR 0.82 MG/DL (0.70-1.30); GLOMERULAR FILTRATION RATE > 60.0 (>49); GLUCOSE, FASTING 154 MG/DL (74-106); POTASSIUM SERUM 4.1 MMOL/L (3.5-5.1); SODIUM LEVEL 142 MMOL/L (136-145); TOTAL PROTEIN 7.4 G/DL (5.7-8.2)
== END ==
LOC: M LAB 10:41
PROVIDERS: ATTEND Physician Assistant
DX: K74.60 Unspecified cirrhosis of liver (principal); I85.01 Esophageal varices with bleeding; R60.9 Edema, unspecified

== ENCOUNTER 2024-01-06 13:11 | Emergency (ER) | payer OTHER ==
[~2024-01-06] VITALS: Ht 165.1 cm; Wt 87.1 kg
[2024-01-06] MEDS ORDERED: MICO2CRE7 PV (13:21)
[2024-01-06] MEDS ORDERED: FLUC150T9 PO (13:21)
[2024-01-06 14:15] LABS: BASO # 0.1 10^3/uL (0.0-0.2); EOS # 0.1 10^3/uL (0.0-0.5); EOS % 1.2 % (0.0-3.0); HEMATOCRIT 51.1 % (42.0-52.0); HEMOGLOBIN 17.8 g/dl (13.5-17.5); LYMPH # 1.5 10^3/uL (1.5-5.0); LYMPH % 21.8 % (24.0-44.0); MEAN CORPUSCULAR HGB CONC 34.8 g/dl (32.0-36.5); MONO # 1.1 10^3/uL (0.0-0.8); MONO % 15.3 % (2.0-8.0); NEUTROPHILS # 4.2 10^3/uL (1.5-8.5); NEUTROPHILS % 60.3 % (36.0-66.0); PLATELET COUNT, AUTOMATED 174 10^3/uL (150-450); RED BLOOD COUNT 5.74 10^6/uL (4.30-6.10); WHITE BLOOD COUNT 6.9 10^3/uL (4.0-10.0)
[2024-01-06 14:38] LABS: LIPASE 47 U/L (12-53)
[2024-01-06 14:41] LABS: ALBUMIN 3.4 G/DL (3.2-5.2); ALKALINE PHOSPHATASE 138 U/L (46-116); ALT/SGPT 107 U/L (7.0-40); AST/SGOT 84 U/L (<34); BILIRUBIN,DIRECT 0.5 MG/DL (<0.4); BILIRUBIN,TOTAL 2.6 MG/DL (0.3-1.2); BLOOD UREA NITROGEN 12 MG/DL (9-23); CALCIUM LEVEL 9.1 MG/DL (8.3-10.6); CARBON DIOXIDE LEVEL 24 MMOL/L (20-31); CHLORIDE LEVEL 102 MMOL/L (98-107); CREATININE FOR GFR 0.73 MG/DL (0.70-1.30); GLOMERULAR FILTRATION RATE > 60.0 (>49); GLUCOSE, FASTING 279 MG/DL (74-106); POTASSIUM SERUM 3.8 MMOL/L (3.5-5.1); SODIUM LEVEL 134 MMOL/L (136-145); TOTAL PROTEIN 7.8 G/DL (5.7-8.2)
[2024-01-06] MEDS ORDERED: ISOVUE-370 76% 100ML VIAL As Ordered ONE (16:15)
[2024-01-06] MEDS: KETOROLAC 30 MG/ML 1ML VIAL IV ONE (16:38)
[2024-01-06] MEDS: NS 1,000 ML IV ONE (16:38)
[2024-01-06 17:33] LABS: HEPATITIS B SURFACE ANTIGEN NEGATIVE (NEGATIVE)
[2024-01-06 17:54] LABS: HEPATITIS B CORE ANTIBODY IGM NEGATIVE (NEGATIVE); HEPATITIS C VIRUS ABY INDEX < 0.02 INDEX (<0.8)
[2024-01-06 20:17] LABS: MAGNESIUM LEVEL 1.5 MG/DL (1.8-2.4)
[2024-01-06] MEDS: AZITHROMYCIN INJ 500 MG, VIAL MATE ADAPTER 1 EACH in NS 250 ML IV ONE (20:48)
[2024-01-06] MEDS: MAG SULF 1GM/100ML (MAG RUN) 1 GM in IV 1 EA IV ONE (21:56)
[2024-01-06 22:04] VITALS: BP 120/73; TEMP 97.7; O2SAT 94
[2024-01-06] MEDS ORDERED: AZIT-12 PO (22:59)
[2024-01-06] MEDS ORDERED: MAGN400T2 PO (22:59)
== END 2024-01-06 23:08 | disposition home or self-care (01) ==
LOC: M ED 13:11
DX: K51.018 Ulcerative (chronic) pancolitis with other complication (principal); R16.1 Splenomegaly, not elsewhere classified; K74.60 Unspecified cirrhosis of liver; I45.81 Long QT syndrome; E11.9 Type 2 diabetes mellitus without complications; I10 Essential (primary) hypertension; Z86.79 Personal history of other diseases of the circulatory system; Z91.09 Other allergy status, other than to drugs and biological substances; Z88.8 Allergy status to other drugs, medicaments and biological substances; Z79.2 Long term (current) use of antibiotics; Z79.83 Long term (current) use of bisphosphonates; Z79.899 Other long term (current) drug therapy
CPT/HCPCS: 74177; 80048; 80074; 80076; 81001; 83690; 83735; 85025; 87507; 93005; 96361; 96365; 96366; 96375; 99284; J0456; J1885; J3475; Q9967

== ENCOUNTER → 2024-03-23 | Outpatient (CLI) | payer OTHER ==
[~2024-03-23] MED LIST changes: +AZIT-12 PO; +FLUC150T9 PO; +MAGN400T2 PO; +MICO2CRE7 PV
[2024-03-23 11:37] LABS: HEMATOCRIT 46.8 % (42.0-52.0); HEMOGLOBIN 15.8 g/dl (13.5-17.5); MEAN CORPUSCULAR HEMOGLOBIN 31.1 pg (27.0-33.0); MEAN CORPUSCULAR HGB CONC 33.8 g/dl (32.0-36.5); MEAN CORPUSCULAR VOLUME 92.1 fl (80.0-96.0); PLATELET COUNT, AUTOMATED 101 10^3/uL (150-450); RED BLOOD COUNT 5.08 10^6/uL (4.30-6.10); WHITE BLOOD COUNT 4.4 10^3/uL (4.0-10.0)
[2024-03-23 11:54] LABS: INR 1.19; PROTHROMBIN TIME 14.7 SECONDS (12.5-14.5)
[2024-03-23 12:02] LABS: ALBUMIN 3.5 G/DL (3.2-5.2); ALKALINE PHOSPHATASE 145 U/L (46-116); ALT/SGPT 87 U/L (7.0-40); AST/SGOT 77 U/L (<34); BLOOD UREA NITROGEN 12 MG/DL (9-23); CARBON DIOXIDE LEVEL 28 MMOL/L (20-31); CHLORIDE LEVEL 106 MMOL/L (98-107); CREATININE FOR GFR 0.85 MG/DL (0.70-1.30); GLOMERULAR FILTRATION RATE > 60.0 (>49); GLUCOSE, FASTING 179 MG/DL (74-106); POTASSIUM SERUM 4.2 MMOL/L (3.5-5.1); SODIUM LEVEL 141 MMOL/L (136-145); TOTAL PROTEIN 7.6 G/DL (5.7-8.2)
== END ==
LOC: M LAB 10:55
PROVIDERS: ATTEND Physician Assistant
DX: I85.01 Esophageal varices with bleeding (principal); K31.819 Angiodysplasia of stomach and duodenum without bleeding

== ENCOUNTER → 2024-04-15 | Outpatient (CLI) | payer OTHER | LOC: M RAD 08:33 | PROVIDERS: ATTEND Physician Assistant | DX: I85.01 Esophageal varices with bleeding (principal); K31.819 Angiodysplasia of stomach and duodenum without bleeding ==

== ENCOUNTER → 2024-05-27 | Outpatient (CLI) | payer OTHER ==
[2024-05-27 10:06] LABS: HEMATOCRIT 41.2 % (42.0-52.0); HEMOGLOBIN 13.7 g/dl (13.5-17.5); MEAN CORPUSCULAR HEMOGLOBIN 31.3 pg (27.0-33.0); MEAN CORPUSCULAR HGB CONC 33.3 g/dl (32.0-36.5); MEAN CORPUSCULAR VOLUME 94.1 fl (80.0-96.0); RED BLOOD COUNT 4.38 10^6/uL (4.30-6.10); WHITE BLOOD COUNT 4.2 10^3/uL (4.0-10.0)
[2024-05-27 10:20] LABS: PLATELET COUNT, AUTOMATED 94 10^3/uL (150-450)
[2024-05-27 10:32] LABS: ALBUMIN 3.2 G/DL (3.2-5.2); ALKALINE PHOSPHATASE 149 U/L (40-129); ALT/SGPT 58 U/L (7.0-40); AST/SGOT 54 U/L (<34); BILIRUBIN,TOTAL 0.5 MG/DL (0.3-1.2); BLOOD UREA NITROGEN 14 MG/DL (9-23); CALCIUM LEVEL 9.2 MG/DL (8.3-10.6); CARBON DIOXIDE LEVEL 28 MMOL/L (20-31); CHLORIDE LEVEL 109 MMOL/L (98-107); CHOLESTEROL LEVEL 137 MG/DL (<200); CHOLESTEROL RISK RATIO 4.08 (<5); CREATININE FOR GFR 0.87 MG/DL (0.70-1.30); GLOMERULAR FILTRATION RATE > 60.0 (>49); GLUCOSE, FASTING 180 MG/DL (74-106); HDL CHOLESTEROL 33.5 MG/DL (>40); LDL CHOLESTEROL 61.1 MG/DL (<100); NON-HDL-C 103.5 MG/DL; POTASSIUM SERUM 4.1 MMOL/L (3.5-5.1); PROSTATIC SPECIFIC AG MONITOR 0.51 NG/ML (< 4.00); SODIUM LEVEL 142 MMOL/L (136-145); TOTAL PROTEIN 7.6 G/DL (5.7-8.2); TRIGLYCERIDES LEVEL 212 MG/DL (<150)
[2024-05-27 10:35] LABS: THYROID STIMULATING HORMONE 1.818 uIU/ML (0.55-4.78)
[2024-05-27 10:38] LABS: TESTOSTERONE 858 NG/DL (241-827)
[2024-05-27 10:59] LABS: HEMOGLOBIN A1c 8.8 % (4.0-6.0)
== END ==
LOC: M LAB 09:07
PROVIDERS: ATTEND Family Medicine
DX: R53.83 Other fatigue (principal); I10 Essential (primary) hypertension; E03.9 Hypothyroidism, unspecified

== ENCOUNTER → 2024-08-19 | Outpatient (CLI) | payer OTHER ==
[2024-08-19 12:11] LABS: HEMATOCRIT 44.2 % (42.0-52.0); HEMOGLOBIN 14.6 g/dl (13.5-17.5); MEAN CORPUSCULAR HEMOGLOBIN 29.2 pg (27.0-33.0); MEAN CORPUSCULAR VOLUME 88.4 fl (80.0-96.0); WHITE BLOOD COUNT 3.3 10^3/uL (4.0-10.0)
[2024-08-19 12:14] LABS: PLATELET COUNT, AUTOMATED 88 10^3/uL (150-450)
[2024-08-19 14:20] LABS: HEMOGLOBIN A1c 10.1 % (4.0-6.0)
== END ==
LOC: M LAB 09:47
PROVIDERS: ATTEND Family Medicine
DX: I10 Essential (primary) hypertension (principal); E11.9 Type 2 diabetes mellitus without complications; R53.83 Other fatigue

== ENCOUNTER → 2024-11-02 | Outpatient (CLI) | payer OTHER ==
[2024-11-02 10:15] LABS: HEMATOCRIT 45.7 % (42.0-52.0); MEAN CORPUSCULAR HEMOGLOBIN 29.8 pg (27.0-33.0); MEAN CORPUSCULAR HGB CONC 32.8 g/dl (32.0-36.5); MEAN CORPUSCULAR VOLUME 90.9 fl (80.0-96.0); PLATELET COUNT, AUTOMATED 93 10^3/uL (150-450); RED BLOOD COUNT 5.03 10^6/uL (4.30-6.10); WHITE BLOOD COUNT 3.7 10^3/uL (4.0-10.0)
[2024-11-02 10:23] LABS: INR 1.08; PROTHROMBIN TIME 14.3 SECONDS (12.5-14.5)
[2024-11-02 10:39] LABS: ALBUMIN 3.6 G/DL (3.2-5.2); ALKALINE PHOSPHATASE 122 U/L (40-129); ALT/SGPT 73 U/L (7.0-40); AST/SGOT 79 U/L (<34); BILIRUBIN,TOTAL 0.6 MG/DL (0.3-1.2); BLOOD UREA NITROGEN 14 MG/DL (9-23); CALCIUM LEVEL 9.5 MG/DL (8.3-10.6); CARBON DIOXIDE LEVEL 28 MMOL/L (20-31); CHLORIDE LEVEL 103 MMOL/L (98-107); CREATININE FOR GFR 0.82 MG/DL (0.70-1.30); GLOMERULAR FILTRATION RATE > 90.0 (>49); GLUCOSE, FASTING 176 MG/DL (74-106); SODIUM LEVEL 140 MMOL/L (136-145); TOTAL PROTEIN 7.7 G/DL (5.7-8.2)
== END ==
LOC: M LAB 09:13
PROVIDERS: ATTEND Physician Assistant
DX: I85.01 Esophageal varices with bleeding (principal); K31.819 Angiodysplasia of stomach and duodenum without bleeding

== ENCOUNTER → 2024-11-24 | Outpatient (CLI) | payer OTHER | LOC: M RAD 07:55 | PROVIDERS: ATTEND Internal Medicine Gastroenterology | DX: K74.60 Unspecified cirrhosis of liver (principal) ==

== ENCOUNTER 2025-02-02 06:03 | Emergency (ER) | payer OTHER ==
[~2025-02-02] VITALS: Ht 165.1 cm; Wt 87.8 kg
[2025-02-02 07:03] LABS: BASO # 0.1 10^3/uL (0.0-0.2); BASO % 0.7 % (0.0-1.0); EOS # 0.0 10^3/uL (0.0-0.5); EOS % 0.4 % (0.0-3.0); LYMPH # 1.2 10^3/uL (1.5-5.0); LYMPH % 14.3 % (24.0-44.0); MONO # 0.5 10^3/uL (0.0-0.8); MONO % 5.5 % (2.0-8.0); NEUTROPHILS # 6.6 10^3/uL (1.5-8.5); NEUTROPHILS % 78.6 % (36.0-66.0); PLATELET COUNT, AUTOMATED 155 10^3/uL (150-450)
[2025-02-02 07:15] LABS: INR 1.2
[2025-02-02 07:36] LABS: ALT/SGPT 76 U/L (7.0-40); AST/SGOT 105 U/L (<34); CALCIUM LEVEL 8.9 MG/DL (8.3-10.6); CARBON DIOXIDE LEVEL 27 MMOL/L (20-31); CHLORIDE LEVEL 98 MMOL/L (98-107); CREATININE FOR GFR 0.79 MG/DL (0.70-1.30); GLOMERULAR FILTRATION RATE > 90.0 (>49); POTASSIUM SERUM 4.5 MMOL/L (3.5-5.1); SODIUM LEVEL 137 MMOL/L (136-145)
[2025-02-02] MEDS ORDERED: ISOVUE-370 76% 100 ML VIAL As Ordered ONE (10:36)
[2025-02-02] MEDS: PANTOPRAZOLE 40MG VIAL IV ONE (11:04)
[2025-02-02] MEDS: NS (Normal Saline) 0.9% 1,000 ML IV SCH (11:04)
[2025-02-02] MEDS ORDERED: METF500T13 PO (11:49)
[2025-02-02] MEDS ORDERED: REPA140I2 SC (11:49)
[2025-02-02] MEDS ORDERED: CARV3.12 PO (11:49)
[2025-02-02] MEDS ORDERED: MOME0.1O3 TOP (11:49)
[2025-02-02] MEDS ORDERED: TADA5TAB2 PO (11:49)
[2025-02-02] MEDS ORDERED: NYAM10003 TOP (11:49)
[2025-02-02] MEDS ORDERED: HOME MED LIST COMPLETE! XX SCH (11:50)
[2025-02-02] MEDS ORDERED: OCTREOTIDE ACETATE 1,200 MCG in NS 238.8 ML IV SCH (12:20)
[2025-02-02] MEDS: OCTREOTIDE ACETATE 100 MCG/ML VIAL **IV ADMINISTRATION ONLY IV ONE (13:09)
[2025-02-02] MEDS: PANTOPRAZOLE SODIUM 40 MG in DEXTROSE 5% (D5W) ADV/MINI-BAG 50 ML IV SCH (13:09)
[2025-02-02] MEDS: ONDANSETRON 4MG 2ML VIAL IV ONE (13:09)
[2025-02-02] MEDS: OCTREOTIDE ACETATE 1,200 MCG in NS 238.8 ML IV SCH (13:11)
[2025-02-02 14:00] VITALS: BP 110/58; O2SAT 94
[2025-02-02 14:04] VITALS: TEMP 98.8
== END 2025-02-02 14:08 | disposition short-term general hospital (02) ==
LOC: M ED 06:03
DX: K92.2 Gastrointestinal hemorrhage, unspecified (principal); Z88.8 Allergy status to other drugs, medicaments and biological substances; Z91.048 Other nonmedicinal substance allergy status; Z79.4 Long term (current) use of insulin; Z79.84 Long term (current) use of oral hypoglycemic drugs; Z79.899 Other long term (current) drug therapy
CPT/HCPCS: 74174; 80048; 80076; 83690; 85025; 85610; 86850; 86900; 86901; 93041; 96374; 96375; 96376; 99285; J2354; J2405; J2470; Q9967

== ENCOUNTER → 2025-05-10 | Outpatient (CLI) | payer OTHER ==
[~2025-05-10] MED LIST changes: +CARV3.12 PO; +METF500T13 PO; +MOME0.1O3 TOP; +NYAM10003 TOP; +REPA140I2 SC; +TADA5TAB2 PO
[2025-05-10 11:19] LABS: PLATELET COUNT, AUTOMATED 115 10^3/uL (150-450)
[2025-05-10 11:35] LABS: INR 1.14
[2025-05-10 11:44] LABS: ALT/SGPT 40 U/L (7.0-40); AST/SGOT 68 U/L (<34); CALCIUM LEVEL 9.3 MG/DL (8.3-10.6); CARBON DIOXIDE LEVEL 26 MMOL/L (20-31); CHLORIDE LEVEL 106 MMOL/L (98-107); CREATININE FOR GFR 0.73 MG/DL (0.70-1.30); GLOMERULAR FILTRATION RATE > 90.0 (>49); POTASSIUM SERUM 3.9 MMOL/L (3.5-5.1); SODIUM LEVEL 144 MMOL/L (136-145)
== END ==
LOC: M LAB 09:45
PROVIDERS: ATTEND Physician Assistant
DX: K74.60 Unspecified cirrhosis of liver (principal)

== ENCOUNTER → 2025-05-10 | Outpatient (CLI) | payer OTHER ==
[2025-05-10 11:40] LABS: CHOLESTEROL LEVEL 100.0 MG/DL (<200); CHOLESTEROL RISK RATIO 2.88 (<5); LDL CHOLESTEROL 31.1 MG/DL (<100); NON-HDL-C 65.3 MG/DL; TRIGLYCERIDES LEVEL 171.0 MG/DL (<150)
== END ==
LOC: M LAB 09:43
PROVIDERS: ATTEND Nurse Practitioner Family
DX: E78.2 Mixed hyperlipidemia (principal)

== ENCOUNTER → 2025-06-01 | Outpatient (CLI) | payer OTHER | LOC: M RAD 09:47 | PROVIDERS: ATTEND Physician Assistant | DX: K74.60 Unspecified cirrhosis of liver (principal); I85.01 Esophageal varices with bleeding; K31.819 Angiodysplasia of stomach and duodenum without bleeding; Z12.11 Encounter for screening for malignant neoplasm of colon; R18.8 Other ascites ==